=== PATIENT | male | born 1965 | race Caucasian/White ===

== ENCOUNTER 2020-04-25 12:48 | Observation (INO) | payer OTHER, SELFPAY ==
--- NOTE | ~2020-04-25 | CT_ITS ---
EXAMINATION: CT abdomen pelvis w con DATE: 04/25/2020 16:07 INDICATION: Mid abdominal pain. Nausea and vomiting. TECHNIQUE: Computed tomography (CT) of the abdomen and pelvis was performed with 100 mL Omnipaque 350 intravenous contrast. Automated exposure control and iterative reconstruction technique were employe d. The dose-length product was 375.78 mGy-cm. COMPARISON: CT abdomen and pelvis 01/08/2018 FINDINGS: The visualized portions of the lung bases demonstrate mild atelectasis. No pleural effusion . The heart size is normal. No pericardial effusion. There is a small sliding hiatal hernia. The live r demonstrates focal steatosis adjacent to ligamentum teres. The gallbladder, spleen, pancreas, adren al glands, and kidneys are normal. The prostate is mildly enlarged. There are scattered diverticula i n the colon. There is wall thickening of the sigmoid colon. There are no dilated loops of bowel. The appendix is not visualized. There are no pathologically enlarged lymph nodes. There is no free intrap eritoneal fluid. There is moderate lumbar spondylosis. There is mild chronic anterior wedging of T11- L1 vertebral bodies. IMPRESSION: 1. Stable wall thickening of sigmoid colon, likely chronic diverticulitis. 2. Small sliding hiatal hernia. Reviewed, dictated and finalized at location A.
[2020-04-25 13:09] VITALS: PULSE 70; RESP 17; TEMP 36.4; O2SAT 100
[2020-04-25 13:45] LABS: Basophils Absolute Auto 0.1 K/mm3 (0.0-0.1); Basophils Percent Auto 0.5 % (0.2-1.2); Eosinophils Percent Auto 0.1 % (0-4.4); Hematocrit 52.2 % (42.0-52.0); Hemoglobin 18.3 g/dL (14.0-18.0); Immature Granulocyte Absolute 0.06 K/mm3 (0.00-0.031); Immature Granulocyte Percent A 0.5 % (0-0.5); Lymphocytes Absolute Auto 0.85 K/mm3 (0.9-3.2); Lymphocytes Percent Auto 6.4 % (18.3-44.2); Mean Corpuscular HGB Conc 35.1 g/dl (32-36); Mean Corpuscular Hemoglobin 32.3 pg (26-34); Mean Corpuscular Volume 92.2 fl (80-100); Mean Platelet Volume 10.6 fl (7.4-10.4); Monocytes Absolute Auto 0.3 K/mm3 (0.1-0.6); Neutrophils Absolute Auto 12.1 K/mm3 (1.3-6.7); Neutrophils Percent Auto 90.5 % (45.5-73.1); Platelet Count Result 369 k/mm3 (150-375); Red Blood Count 5.66 M/mm3 (4.6-6.20); White Blood Count 13.3 K/mm3 (4.5-10.0)
[2020-04-25 13:59] LABS: Alanine Aminotransferase 16 U/L (4-50); Albumin Level 5.4 g/dL (3.5-5.1); Alkaline Phosphatase 92 U/L (38-126); Aspartate Amino Transferase 16 U/L (17-59); Bilirubin,Total 1.8 mg/dL (0.2-1.3); Blood Urea Nitrogen 21 mg/dL (9-20); Calcium 10.4 mg/dL (8.4-10.2); Carbon Dioxide 19 mmol/L (22-30); Chloride 102 mmol/L (98-107); Estimated CRCL calculation 75 ml/min; Estimated Glomerular Filt Rate > 60; Glucose 186 mg/dL (75-110); Lipase 46 U/L (23-300); Potassium 4.3 mmol/L (3.4-5.0); Sodium 140 mmol/L (137-145)
[2020-04-25 15:37] VITALS: BP 163/96; PULSE 72; RESP 18; O2SAT 99
--- NOTE | 2020-04-25 15:40 | ED.NAVMDI ---
HPI - Nausea/Vomiting/Diarrhea General Chief complaint: Nausea/Vomiting/Diarrhea Stated complaint: abdominal pain Time Seen by Provider: 04/25/20 15:27 Source: patient Mode of arrival: ambulatory Limitations: no limitations History of Present Illness HPI Narrative: Patient is a 54-year-old male who presents for evaluation of nausea, vomiting and abdominal pain. Patient reports a 3-day history of worsening, severe upper abdominal pain. Patient denies any back pain or chest pain. He reports numerous episodes of nonbloody, nonbilious emesis. He denies any lower abdominal pain, no urinary symptoms. He reports intermittent diarrhea, no dark or tarry stool, no blood or mucus present. Patient has a history of flareups such as this in the past, he follows with Dr. Joya, is currently investigating any etiology such as irritable bowel syndrome. Patient denies fever or chills. He reports feeling dehydrated. Related Data Home Medications Medication Instructions Recorded Confirmed sucralfate 1 gram tablet 1 gm PO QID tablet 09/16/19 Allergies Allergy/AdvReac Type Severity Reaction Status Date / Time cephalexin Allergy Unknown Unknown Verified 04/25/20 15:38 BEE POLLENS Allergy Mild Swelling Uncoded 04/25/20 15:38 BEE STINGS Allergy Mild SWELLING Uncoded 04/25/20 15:38 CATS Allergy Mild SNEEZE Uncoded 04/25/20 15:38 MILDEW Allergy Mild SNEEZE Uncoded 04/25/20 15:38 Molds and Smuts Allergy Mild SNEEZE Uncoded 04/25/20 15:38 Review of Systems Review of Systems: Narrative: CONSTITUTIONAL: Denies fever, chills EYES: Denies visual changes, redness, or discharge. ENT: Denies rhinorrhea, congestion, sore throat, or otalgia. CARDIOVASCULAR: Denies chest pain, palpitations, or edema. RESPIRATORY: Denies cough or dyspnea. GASTROINTESTINAL: Reports abdominal pain, nausea and vomiting GENITOURINARY: Denies dysuria or hematuria. SKIN: Denies rash or itching. MUSCULOSKELETAL: Denies back pain, joint pain, or myalgia. NEUROLOGIC: Denies headache PMFSH Past Medical History Medical History (Updated 04/25/20 @ 17:47 by Marylu Johnston MD) Acid reflux Diverticulitis Hyperlipidemia Surgical History Surgical History (Updated 04/25/20 @ 15:43 by Marylu Johnston MD) H/O inguinal hernia repair History of appendectomy Family History Family History (Updated 05/31/17 @ 09:36 by DOCTOR UNKNOWN) Other Diabetes mellitus Social History Social History Smoking status: Never smoker Second hand tobacco smoke exposure: No Alcohol intake: current Exam Narrative: Exam Narrative: GENERAL: Awake, alert, conversant, uncomfortable appearing HEAD: Normocephalic, atraumatic. EYES: PERRLA and EOMI. ENT: Nares clear, no rhinorrhea or epistaxis. Mucous membranes dry. NECK: Supple. CHEST: No respiratory distress, breathing even and non labored HEART: Regular rate, sinus rhythm ABDOMEN:Non distended, tender to palpation in epigastrium, periumbilical area, guarding present, non rigid, no rebound EXTREMITIES: Normal range of motion. No edema. SKIN: Warm, dry, no rash. NEURO:No focal deficits. Alert and oriented x3 Course Vital Signs Vital signs: Vital Signs Temperature 36.4 C 04/25/20 13:09 Pulse Rate 70 04/25/20 13:09 Respiratory Rate 17 04/25/20 13:09 Pulse Oximetry 100 04/25/20 13:09 Temperature 36.4 C 04/25/20 13:09 Pulse Rate 63 04/25/20 17:06 Respiratory Rate 17 04/25/20 17:06 Blood Pressure 160/89 H 04/25/20 17:06 Pulse Oximetry 100 04/25/20 17:06 MDM - Nausea/Vomiting/Diarrhea MDM Narrative Medical decision making narrative: Patient presented for evaluation of abdominal pain. At the time of initial assessment, ABCs are intact and vital signs are stable. Patient is uncomfortable appearing with diffuse abdominal tenderness especially in the periumbilical area. He has some guarding present. No rebound or rigidity. IV access obt
[2020-04-25] MEDS: MORPHINE SULFATE 4 MG/ML INJ IV PUSH ×3 (15:53→22:04)
[2020-04-25] MEDS: FAMOTIDINE 20 MG/2 ML VIAL IV PUSH (15:53)
[2020-04-25] MEDS: ONDANSETRON INJ 4 MG/2 ML VIAL IV PUSH ×2 (15:53→20:22)
[2020-04-25] MEDS: DICYCLOMINE HCL INJ 20 MG/2 ML VIAL IM (15:53)
[2020-04-25] MEDS: SODIUM CHLORIDE 0.9% IV 1,000 ML 999 ML IV CONT ×2 (15:54)
--- NOTE | 2020-04-25 15:55 | PC.NURSE ---
Pt to CT scan via stretcher.
[2020-04-25 17:06] VITALS: BP 160/89; PULSE 63; RESP 17; O2SAT 100
[2020-04-25 17:17] LABS: Add Urine Microscopic? YES; Appearance Urine Clear (Clear); Bilirubin Urine Negative (Negative); Blood Urine Negative (Negative); Color Urine Straw (Yellow); Glucose Urine UA 1+ mg/dL (Negative); Ketones Urine 1+ mg/dL (Negative); Leukocyte Esterase Ur Negative LEU/UL (Negative); Mucus Urine Rare /lpf; Nitrate Urine Negative (Negative); Protein Urine Negative (Negative); RBC Urine 0-2 /hpf (0-2); Squamous Epithelial Cell Urine Rare /hpf (Few); Urobilinogen Urine Negative mg/dL (<2.0); WBC Urine 0-3 /hpf
[2020-04-25 17:19] LABS: Specific Grav Ur 1.059 (1.001-1.035)
[2020-04-25] MEDS: METOCLOPRAMIDE HCL INJ 10 MG/2 ML VIAL IV PUSH (17:25)
[2020-04-25] MEDS: CIPROFLOXACIN 500 MG TAB PO (17:25)
[2020-04-25] MEDS: metroNIDAZOLE 250 MG TABLET 500 MG PO (17:25)
[2020-04-25 18:30] VITALS: BP 158/98; PULSE 69; RESP 17; O2SAT 100
[2020-04-25] MEDS: SODIUM CHLORIDE 0.9% IV 1,000 ML 125 ML IV CONT (18:57)
[2020-04-25 18:59] VITALS: BP 179/91; PULSE 77; RESP 18; TEMP 37.3; O2SAT 100
[2020-04-25 20:03] VITALS: BMI 25.0
--- NOTE | 2020-04-25 20:05 | ADMGEN ---
This patient, Lamberto Wright, was admitted to [facility] Surg Room 311-01. Patient/family oriented to hospital policies and general routines including ID bracelet, bed and alarms, visiting hours, pain management, procedures, bathroom and other care routines, personal items, smoking policy, room service/diet, and visiting hours. Valuables list has been completed. Information on how to activate the Rapid Response Team has been discussed. Patient/Family are encouraged to report perceived risks to care and to ask questions if they do not understand what they are told or what they should do.
[2020-04-25] MEDS: IBUPROFEN IV 400 MG in SODIUM CHLORIDE 0.9% IV 100 ML 200 MG IVPB (20:40)
[2020-04-25 22:00] VITALS: BP 134/69; PULSE 77; RESP 16; TEMP 37.3; O2SAT 100
[2020-04-26] MEDS: MORPHINE SULFATE 4 MG/ML INJ IV PUSH (02:21)
[2020-04-26] MEDS: SODIUM CHLORIDE 0.9% IV 1,000 ML 125 ML IV CONT ×2 (02:27→10:04)
[2020-04-26] MEDS: ONDANSETRON INJ 4 MG/2 ML VIAL IV PUSH (02:41)
[2020-04-26 06:00] VITALS: BP 136/81; PULSE 63; RESP 16; TEMP 36.3; O2SAT 100
[2020-04-26 06:25] LABS: Basophils Percent Auto 0.2 % (0.2-1.2); Eosinophils Absolute Auto 0.1 K/mm3 (0-0.3); Eosinophils Percent Auto 0.6 % (0-4.4); Hemoglobin 14.9 g/dL (14.0-18.0); Immature Granulocyte Absolute 0.05 K/mm3 (0.00-0.031); Immature Granulocyte Percent A 0.4 % (0-0.5); Lymphocytes Absolute Auto 2.29 K/mm3 (0.9-3.2); Lymphocytes Percent Auto 17.2 % (18.3-44.2); Mean Corpuscular HGB Conc 33.9 g/dl (32-36); Mean Corpuscular Hemoglobin 31.9 pg (26-34); Mean Corpuscular Volume 94.2 fl (80-100); Mean Platelet Volume 10.6 fl (7.4-10.4); Monocytes Absolute Auto 1.2 K/mm3 (0.1-0.6); Monocytes Percent Auto 9.3 % (2.6-8.5); Neutrophils Absolute Auto 9.6 K/mm3 (1.3-6.7); Neutrophils Percent Auto 72.3 % (45.5-73.1); Platelet Count Result 270 k/mm3 (150-375); Red Blood Count 4.67 M/mm3 (4.6-6.20); Red Cell Distribution Width 13.1 % (11.5-14.5); White Blood Count 13.3 K/mm3 (4.5-10.0)
[2020-04-26 06:50] LABS: Blood Urea Nitrogen 16 mg/dL (9-20); Calcium 8.6 mg/dL (8.4-10.2); Carbon Dioxide 26 mmol/L (22-30); Chloride 105 mmol/L (98-107); Estimated CRCL calculation 93 ml/min; Estimated Glomerular Filt Rate > 60; Glucose 98 mg/dL (75-110); Potassium 3.9 mmol/L (3.4-5.0); Sodium 139 mmol/L (137-145)
--- NOTE | 2020-04-26 09:56 | PM.IMHP ---
H&P: HPI History of Present Illness Chief complaint: Chronic diverticulitis, intractable nausea Narrative: Date of visit 04/26 930. Lamberto Wright is a 54 year old male with history of recurrent epigastric pain nausea and vomiting. He also has a history diverticulitis. Has been following up with his follow up clerk Dr. Joya and stated the dicyclomine did not help his symptoms. He cannot pinpoint any precipitating factor and has been rather heavy alcohol consumer but stated he had not drank any alcohol for about 5 days prior to this episode. He woke up on the through the night with crampy abdominal pain in epigastric area which worsened with nausea and vomiting and persistent pain so he came to the emergency room for evaluation. He was dehydrated and CT scan revealed thickening of the sigmoid colon which is chronic in compatible with chronic diverticulitis. Patient states the pain is not like his diverticular pain. He does relate that sometimes the symptoms are relieved with a warm shower and admits to smoking marijuana for years but a little elusive on how much or how frequently. He has had no melena hematochezia hematemesis or weight loss. Last colonoscope in 2016 showed only diverticular disease. EGD in the past has been normal. Review of Systems Review of Systems: Narrative: Constitutional weight stable appetite good and no fever chills Eye no double vision or scotoma Mouth no pharyngitis laryngitis Pulmonary no shortness breath wheezing or cough CV no chest pain palpitation GI as per present illness frequently does have loose stools no dysuria no hematuria Muscle skeletal no particular joint discomfort Integument no skin breakdown rashes Neuropsych no seizures no syncope PMFSH Past Medical History Medical History (Updated 04/26/20 @ 10:08 by Todd Brower MD) Acid reflux Diverticulitis Hyperlipidemia Surgical History Surgical History (Updated 04/25/20 @ 15:43 by Marylu Johnston MD) H/O inguinal hernia repair History of appendectomy Family History Family History (Updated 04/26/20 @ 10:05 by Todd Brower MD) Father Diabetes mellitus Mother Diverticular disease Social History Social History (Updated 04/26/20 @ 10:07 by Todd Brower MD) Social History: 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 Smoking status: Never smoker Second hand tobacco smoke exposure: No Alcohol intake: current Alcohol use details: Varies may drink as many as 10-12 beers a day, but prior to this admission had not drank for some 5 days Substance use: current Substance use type: marijuana Living arrangements: with family Gender identity (if verbalized by the patient): Male Sexual Orientation (if Verbalized by the Patient): Straight or Heterosexual Spiritual care concerns: No Meds Home Medications and Allergies Home Medications Medication Instructions Recorded Confirmed Type sucralfate 1 gram tablet 1 gm PO QID tablet 09/16/19 04/25/20 History atorvastatin 40 mg tablet 40 mg PO .QHS #90 tablet 12/11/19 04/25/20 Rx pantoprazole 40 mg tablet,delayed 40 mg PO QAM #90 tablet 03/12/20 04/25/20 Rx release Allergies Allergy/AdvReac Type Severity Reaction Status Date / Time cephalexin Allergy Unknown Unknown Verified 04/25/20 15:38 BEE POLLENS Allergy Mild Swelling Uncoded 04/25/20 15:38 BEE STINGS Allergy Mild SWELLING Uncoded 04/25/20 15:38 CATS Allergy Mild SNEEZE Uncoded 04/25/20 15:38 MILDEW Allergy Mild SNEEZE Uncoded 04/25/20 15:38 Molds and Smuts Allergy Mild SNEEZE Uncoded 04/25/20 15:38 Vital Signs Vital Signs - 24 hr 04/25/20 13:09 04/25/20 15:37 04/25/20 17:06 Temperature 36.4 C Pulse Rate 70 72 63 Respiratory Rate 17 18 17 Blood Pressure 163/96 H 160/89 H Pulse Oximetry 100 99 100 04/25/20 18:30 04/25/20 18:59 04/25/20 22:00 Temperature 37.3 C 37.3 C Pulse Rate 69 77 77 Respiratory Rate 17 18 16 Bl
[2020-04-26] MEDS: SUCRALFATE 1 GM TABLET PO (09:59)
[2020-04-26] MEDS: PANTOPRAZOLE 40 MG TABLET PO (09:59)
[2020-04-26] MEDS: ENOXAPARIN 40 MG/0.4 ML SYRINGE SUB-Q (10:00)
--- NOTE | 2020-04-26 10:18 | PM.CNGS ---
Assessment and Plan Assessment and plan (1) Diverticular disease: Code(s): K57.90 - Diverticulosis of intestine, part unspecified, without perforation or abscess without bleeding Status: Acute Assessment and Plan: Review of old records and CT scan reports do suggest he is had multiple episodes of diverticulitis in the past. He does have a very thickened sigmoid colon wall and numerous diverticuli. He does tend to have chronic frequent bowel movements. He carries a diagnosis of irritable bowel syndrome. Even though his pain is frequently in the hypogastrium, his numerous CT scans do not show pancreatitis and do show diverticulitis. I discussed that laparoscopic sigmoidectomy can be curative in the cases of diverticulitis. I think his diagnosis is difficult as he does use alcohol, marijuana, and has a diagnosis of irritable bowel syndrome. He has had an EGD at a surgery center in 2017. I do not have that result. I have recommended that he be discharged today and see Dr. Joya. I will see him back in approximately a month. I discussed his case with hospitalist Dr. Brower. (2) Abdominal pain: Code(s): R10.9 - Unspecified abdominal pain Status: Acute Assessment and Plan: Currently resolved. Pain again in the hypogastrium and associated with nausea and vomiting. He has presented to the emergency room with these complaints at least 5 or 6 times since 2013. Please see the discussion above. Differential includes irritable bowel syndrome, chronic pancreatitis, and recurrent diverticulitis with somewhat unusual presentation. History of Present Illness Consult details Consult date: 04/26/20 Reason for consult: abdominal pain Narrative: Patient is a 54-year-old man who presented to the emergency room yesterday afternoon with a 3 day history of hypogastric abdominal pain associated with nausea and vomiting. He had numerous episodes of non bilious emesis. [place] [id number]. His examination showed tenderness to palpation in the hypogastric area with some guarding. He was afebrile but had some tachycardia and a slightly elevated blood pressure. He has a history of irritable bowel syndrome and sees Dr. Joya for GI consultation. The patient also has a history of diverticulitis and has had a severe episode but it was probably 6 years ago. He was told he had a perforation and he was hospitalized for this. He received numerous medications in the emergency room. His CT scan was negative other than evidence of chronic diverticulitis as evidenced by sigmoid colon wall thickening. Despite his prolonged difficulties in the emergency room, this morning he says he feels fine. He has no pain at all. He is no longer nauseated. Review of some previous study show he was in the emergency room in January of 2018 with lower abdominal pain nausea and vomiting and had a similar presentation with thickening of the wall of the sigmoid colon and some germaine colonic stranding suggestive of chronic and acute diverticulitis. He has had colonoscopy but can't recall the last time. There is a record in [facility] of a colonoscopy in October. This showed inflammation or colitis of the sigmoid colon with diverticulosis. I reviewed all of his previous admissions in [facility]. Since 2013 he has been admitted with [address] scan diagnosed diverticulitis although his pain has always been in the hypogastrium. 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 One was in 2014 another was in January of 2018. He is seen now in consultation. As mentioned he feels 100% better and back to normal. Review of Systems Review of Systems: All systems reviewed & are unremarkable except as noted in HPI and below Cardiovascular: Cardiovascular: Denies chest pain and Denies dyspnea Respiratory: Respiratory: Denies cough and Denies dyspnea Gastrointestinal: G
== END 2020-04-26 11:45 | disposition home or self-care (01) ==
LOC: ANHED 17:49 → ANH3MEDSUR 18:28
PROVIDERS: Admitting Provider Internal Medicine; Emergency Provider Emergency Medicine; PCP Family Medicine; Visit Provider Internal Medicine
DX: K57.90 Diverticulosis of intestine, part unspecified, without perforation or abscess without bleeding (principal); R10.9 Unspecified abdominal pain; E86.0 Dehydration; R11.2 Nausea with vomiting, unspecified; K21.9 Gastro-esophageal reflux disease without esophagitis; E78.5 Hyperlipidemia, unspecified; K44.9 Diaphragmatic hernia without obstruction or gangrene; F12.90 Cannabis use, unspecified, uncomplicated
CPT/HCPCS: 36415; 74177; 80048; 80053; 81001; 83690; 85025; 96361; 96365; 96366; 96367; 96372; 96375; 96376; 99285; A9270; G0378; J0500; J1170; J1650; J1741; J2270; J2405; J2543; J2765; J7030; Q9967

== ENCOUNTER 2020-06-03 11:33 | Observation (INO) | payer OTHER, SELFPAY ==
--- NOTE | ~2020-06-03 | CT_ITS ---
EXAMINATION: CT abdomen pelvis w con EXAM DATE: 06/03/2020 13:31 INDICATION: Diffuse abdominal pain. Post colonoscopy. TECHNIQUE: Spiral CT of the abdomen and pelvis was performed following intravenous injection of 100 m L Omnipaque 350. Axial, coronal and sagittal images were reviewed. The dose-length product (DLP) fo r this examination was 413.13 mGy-cm. The exposure was tailored according to patient size (auto mA e xposure control), and iterative reconstruction (ASIR) was used as additional dose reduction technique . 04/25/2018 FINDINGS: There is no free intraperitoneal gas, no evidence of perforation. There is a segment of sig moid colon about 10 cm in length which appears to have moderate wall thickening, with severe gaseous distention of the colon proximal to this, likely distended from the colonoscopy. Patient's discomfort could be from the distended colon. Please correlate with colonoscopy results for possibility of canc er causing this region of sigmoid wall thickening. There is mild sigmoid diverticulosis and edema fro m diverticulitis is another possibility. The liver, spleen, adrenal glands and pancreas are unremarkable. Gallbladder is unremarkable. No bi liary obstruction. Portal and splenic veins are patent. Kidneys enhance symmetrically. There is no hydronephrosis. The prostate is unremarkable. The bladder is unremarkable. There is no retroperi toneal or pelvic lymphadenopathy. There is mild scattered arteriosclerotic disease. The appendix is not positively visualized. There is no pericecal inflammatory change to suggest appe ndicitis. The stomach and small bowel are unremarkable. The heart is normal in size. There are no pericardial or pleural effusions. The lung bases are unremarkable. There are no osteoblastic or osteolytic lesions identified. IMPRESSION: Severely distended colon proximal to 10 cm segment of collapsed sigmoid colon with wall t hickening, could be from cancer or reactive edema. Mild sigmoid diverticulosis without adjacent infla mmation. Please correlate with colonoscopy results. Reviewed, dictated and finalized at location A. IMPRESSION: Severely distended colon proximal to 10 cm segment of collapsed sig moid colon with wall thickening, could be from cancer or reactive edema. Mild s igmoid diverticulosis without adjacent inflammation. Please correlate with colo noscopy results.
[2020-06-03 11:46] VITALS: BP 162/66; PULSE 77; RESP 17; RESP 18; TEMP 37.3; O2SAT 100
[2020-06-03] MEDS: ONDANSETRON INJ 4 MG/2 ML VIAL IV PUSH ×2 (12:10→12:59)
--- NOTE | 2020-06-03 12:32 | PC.NURSE ---
Addendum entered by Irwin Bailey RN 06/03/20 12:39: DEBBY VINCENT Original Note: DEBBY PALOMO AT BEDSIDE.
--- NOTE | 2020-06-03 12:36 | ED.ABDPAIN ---
HPI - Abdominal Pain General Chief Complaint: Abdominal Pain Stated Complaint: ABD PAIN Time Seen by Provider: 06/03/20 12:02 Source: patient and family History of Present Illness HPI narrative: 54-year-old male presents emergency department for diffuse abdominal pain that started this morning. Patient states he had a colonoscopy done this morning, which showed polyps and diverticulitis. He has not taken anything for the pain this morning. Nothing makes the pain worse or better. Patient does have history of diverticulitis in the past. Related Data Allergies Allergy/AdvReac Type Severity Reaction Status Date / Time BEE POLLENS Allergy Mild Swelling Uncoded 06/03/20 14:33 BEE STINGS Allergy Mild SWELLING Uncoded 06/03/20 14:33 CATS Allergy Mild SNEEZE Uncoded 06/03/20 14:33 MILDEW Allergy Mild SNEEZE Uncoded 06/03/20 14:33 Molds and Smuts Allergy Mild SNEEZE Uncoded 06/03/20 14:33 Review of Systems Review of Systems: Narrative: CONSTITUTIONAL: Denies fever, chills, or sweats. EYES: Denies visual changes, redness, or discharge. ENT: Denies rhinorrhea, congestion, sore throat, or otalgia. CARDIOVASCULAR: Denies chest pain, palpitations, or edema. RESPIRATORY: Denies cough or dyspnea. GASTROINTESTINAL: Reports abdominal pain, nausea, and vomiting GENITOURINARY: Denies dysuria or hematuria. SKIN: Denies rash or itching. MUSCULOSKELETAL: Denies back pain, joint pain, or myalgia. NEUROLOGIC: Denies headache, numbness, dizziness, or weakness. PSYCHIATRIC: Denies anxiety or depression. 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 EYES: PERRLA and EOMI. ENT: Nares clear, no rhinorrhea or epistaxis. Mucous membranes moist. NECK: Supple. CHEST: Clear to auscultation. No respiratory distress. HEART: Regular rate and rhythm. No murmur heard. Normal peripheral pulses. ABDOMEN: Diffuse abdominal TTP also, with minimal guarding. EXTREMITIES: Normal range of motion. No edema. SKIN: Warm, dry, no rash. NEURO: No focal deficits. Alert and oriented x3. PSYCH: Normal mood and affect. Course Vital Signs Vital signs: Vital Signs Temperature 37.3 C 06/03/20 11:46 Pulse Rate 77 06/03/20 11:46 Respiratory Rate 17 06/03/20 11:46 Blood Pressure 162/66 H 06/03/20 11:46 Pulse Oximetry 100 06/03/20 11:46 Temperature 37.2 C 06/03/20 20:00 Pulse Rate 74 06/03/20 20:00 Respiratory Rate 20 06/03/20 20:00 Blood Pressure 114/62 06/03/20 20:00 Pulse Oximetry 99 06/03/20 20:00 MDM - Abdominal Pain MDM Narrative Medical decision making narrative: 1310 - Discussed case with Dr. Jm Aburto, accepts admission. Medical Records Attestation: I reviewed the patient's medical records. Lab Data Attestation: I reviewed the patient's lab results. Result diagrams: 06/03/20 12:45 06/03/20 12:45 Labs: Lab Results 06/03/20 06/03/20 Range/Units 12:45 12:4
--- NOTE | 2020-06-03 12:39 | PC.NURSE ---
PT UNABLE TO PROVIDE URINE SPECIMEN AT THIS TIME, REFUSING CATH, STATES HE WILL ATTEMPT SOON.
[2020-06-03] MEDS: KETOROLAC 30 MG/ML VIAL (*BKC) IV PUSH (12:51)
[2020-06-03 12:52] LABS: Basophils Absolute Auto 0.1 K/mm3 (0.0-0.1); Basophils Percent Auto 0.4 % (0.2-1.2); Eosinophils Percent Auto 0.3 % (0-4.4); Hematocrit 45.4 % (42.0-52.0); Immature Granulocyte Absolute 0.06 K/mm3 (0.00-0.031); Immature Granulocyte Percent A 0.4 % (0-0.5); Lymphocytes Absolute Auto 1.17 K/mm3 (0.9-3.2); Lymphocytes Percent Auto 8.4 % (18.3-44.2); Mean Corpuscular HGB Conc 35.2 g/dl (32-36); Mean Corpuscular Hemoglobin 31.9 pg (26-34); Mean Corpuscular Volume 90.4 fl (80-100); Mean Platelet Volume 10.4 fl (7.4-10.4); Monocytes Absolute Auto 0.5 K/mm3 (0.1-0.6); Monocytes Percent Auto 3.7 % (2.6-8.5); Neutrophils Absolute Auto 12.2 K/mm3 (1.3-6.7); Neutrophils Percent Auto 86.8 % (45.5-73.1); Platelet Count Result 290 k/mm3 (150-375); Red Blood Count 5.02 M/mm3 (4.6-6.20); Red Cell Distribution Width 12.7 % (11.5-14.5)
[2020-06-03 12:56] VITALS: BP 154/75; PULSE 68; RESP 16; O2SAT 100
--- NOTE | 2020-06-03 13:01 | PC.NURSE ---
PT REMINDED OF NEED FOR UA, REFUSING CATH.
--- NOTE | 2020-06-03 13:02 | PC.NURSE ---
DR. CORRIGAN AT BEDSIDE AT THIS TIME FOR PT ASSESSMENT.
--- NOTE | 2020-06-03 13:02 | PC.NURSE ---
PT STILL COMPLAINING OF 10/10 GENERALIZED ABD PAIN. STATES NONE OF THE MEDICATIONS ARE HELPING, STILL NAUSEATED, BELCHING WHILE NURSE IN ROOM, STILL UNABLE TO PASS GAS.
[2020-06-03 13:05] LABS: Alanine Aminotransferase 12 U/L (4-50); Albumin Level 4.5 g/dL (3.5-5.1); Alkaline Phosphatase 75 U/L (38-126); Anion Gap 9 mmol/L (8-16); Aspartate Amino Transferase 13 U/L (17-59); Bilirubin,Total 1.3 mg/dL (0.2-1.3); Blood Urea Nitrogen 10 mg/dL (9-20); Carbon Dioxide 23 mmol/L (22-30); Chloride 103 mmol/L (98-107); Estimated CRCL calculation 121 ml/min; Estimated Glomerular Filt Rate > 60; Glucose 133 mg/dL (75-110); Lipase 99 U/L (23-300); Potassium 3.8 mmol/L (3.4-5.0); Sodium 135 mmol/L (137-145)
--- NOTE | 2020-06-03 13:07 | PC.NURSE ---
SPOKE WITH DR CORRIGAN AT THIS TIME, VERBAL ORDER GIVEN FOR LR STAT TO RUN AT 125/HR MAINTENANCE, AND 4MG MORPHINE IVP STAT.
[2020-06-03] MEDS: LACTATED RINGERS 1,000 ML 125 ML IV CONT (13:16)
[2020-06-03] MEDS: MORPHINE SULFATE 2 MG/ML INJ IV PUSH ×2 (13:16→20:24)
--- NOTE | 2020-06-03 13:20 | PC.NURSE ---
PT TO CT AT THIS TIME IN STRETCHER.
--- NOTE | 2020-06-03 13:28 | PC.NURSE ---
SPOKE WITH ERP ABOUT DUPLICATE ORDERS, ERP WANTS TO CANCEL NS BOLUS DUE TO EMS BOLUS GIVEN ENCODING CLERK.
[2020-06-03 13:39] VITALS: BP 168/77; PULSE 82; RESP 18; O2SAT 100
[2020-06-03 14:03] LABS: Add Urine Microscopic? YES; Appearance Urine Clear (Clear); Bilirubin Urine Negative (Negative); Blood Urine Negative (Negative); Color Urine Yellow (Yellow); Glucose Urine UA Negative (Negative); Ketones Urine 2+ mg/dL (Negative); Leukocyte Esterase Ur Negative LEU/UL (Negative); Mucus Urine Rare /lpf; Nitrate Urine Negative (Negative); Protein Urine Negative (Negative); RBC Urine 0-2 /hpf (0-2); Specific Grav Ur 1.034 (1.001-1.035); Urobilinogen Urine Negative mg/dL (<2.0); WBC Urine 0-3 /hpf
[2020-06-03 14:14] VITALS: BP 158/75; PULSE 70; RESP 16; O2SAT 100
--- NOTE | 2020-06-03 14:26 | ADMGEN ---
This patient, Lamberto Wright, was admitted to Medical Room 253-01. Patient/family oriented to hospital policies and general routines including ID bracelet, bed and alarms, visiting hours, pain management, procedures, bathroom and other care routines, personal items, smoking policy, room service/diet, and visiting hours. Valuables list has been completed. Information on how to activate the Rapid Response Team has been discussed. Patient/Family are encouraged to report perceived risks to care and to ask questions if they do not understand what they are told or what they should do.
[2020-06-03 14:35] VITALS: BP 154/89; PULSE 71; RESP 20; TEMP 36.5; O2SAT 100; BMI 23.6
--- NOTE | 2020-06-03 14:52 | PC.NURSE ---
Patient received from ED rating pain to abdomen 7/10 and nauseated requesting more medication. Patient is not able to yet receive zofran or morphine, as he has recently received in ED. Page to Dr. Aburto to obtain new orders. Jhonny from Dr. Vences office called back and stated Dr. Aburto is aware and will put in new orders after he sees the patient.
[2020-06-03] MEDS: MORPHINE SULFATE 4 MG/ML INJ IV PUSH (15:19)
--- NOTE | 2020-06-03 16:21 | PM.IMHP ---
H&P: HPI History of Present Illness Date/Time: 06/03/20 16:21 Chief complaint: DIVERTICULITIS Narrative: Lamberto Wright is a 54 year old male Whom I saw in April for acute diverticulitis. He has had multiple bouts of diverticulitis over the course of the last several years. Please see my consultation from April. Patient was discharged in April and saw Dr. Richard. Dr. Joya knows the patient well also. The [facility] I spoke with after his procedure. A pediatric colonoscope had to be used as he has a narrowed colon from diverticulitis. At the colonoscopy, there was mucoid discharge, patchy erythema, colonic spasm all consistent with chronic diverticulitis. Following the procedure, the patient experienced severe lower and hypogastric abdominal pain. He was transferred to the emergency room in [facility]. I saw him in in the emergency room. He is admitted now for recurrent acute diverticulitis and pain after his colonoscopy. CT scan done in the emergency room showed quite a dilated colon, thickened sigmoid and multiple diverticuli consistent with diverticulitis. I also spoke with Dr. Joya about the colonscopy after seeing the patient and reviewing the CT scan. He felt that although the sigmoid was narrowed, there was not near enough narrowing to cause complete colonic obstruction. The colonic distention seen on the CT should likely resolve as air passes following the colonoscopy. He is admitted now with recurrent diverticulitis. Review of Systems Review of Systems: All systems reviewed & are unremarkable except as noted in HPI and below Constitutional: Constitutional: Denies headache(s) Cardiovascular: Cardiovascular: Denies chest pain and Denies dyspnea Respiratory: Respiratory: Denies cough and Denies dyspnea Gastrointestinal: Gastrointestinal: Reports as per HPI, Reports abdominal pain, Reports belching, Denies nausea and Denies vomiting Neurologic: Denies confusion and Denies headache(s) [facility] Past Medical History Medical History Acid reflux Diverticulitis Hyperlipidemia Surgical History Surgical History H/O inguinal hernia repair History of appendectomy Family History Family History Father Hypertension Mother Diverticular disease Diabetes mellitus Social History Social History Social History: 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 Smoking status: Never smoker Second hand tobacco smoke exposure: No Alcohol intake: current Drinks per week: 12 Substance use: current Substance use type: marijuana Other substance usage details: Patient reports occasional marijuana use-last used last weekend Last use: 05/30/2020 Gender identity (if verbalized by the patient): Male Spiritual care concerns: No Meds Home Medications and Allergies Home Medications Medication Instructions Recorded Confirmed Type atorvastatin 40 mg tablet 40 mg PO .QHS #90 tablet 12/11/19 06/03/20 Rx pantoprazole 40 mg tablet,delayed 40 mg PO QAM #90 tablet 03/12/20 06/03/20 Rx release Allergies Allergy/AdvReac Type Severity Reaction Status Date / Time BEE POLLENS Allergy Mild Swelling Uncoded 06/03/20 14:33 BEE STINGS Allergy Mild SWELLING Uncoded 06/03/20 14:33 CATS Allergy Mild SNEEZE Uncoded 06/03/20 14:33 MILDEW Allergy Mild SNEEZE Uncoded 06/03/20 14:33 Molds and Smuts Allergy Mild SNEEZE Uncoded 06/03/20 14:33 Vital Signs Vital Signs - 24 hr 06/03/20 11:46 06/03/20 12:56 06/03/20 13:39 Temperature 37.3 C Pulse Rate 77 68 82 Respiratory Rate 18 16 18 Blood Pressure 162/66 H 154/75 H 168/77 H Pulse Oximetry 100 100 100 06/03/20 14:14 06/03/20 14:35 Tempera
[2020-06-03] MEDS: IBUPROFEN IV 800 MG/200 ML 800 MG/200 ML BAG 400 MG IVPB ×2 (17:43→23:54)
[2020-06-03 20:00] VITALS: BP 114/62; PULSE 74; RESP 20; TEMP 37.2; O2SAT 99
[2020-06-03] MEDS: PANTOPRAZOLE SODIUM IV 40 MG VIAL IV PUSH (20:21)
[2020-06-03] MEDS: FAMOTIDINE 20 MG/2 ML VIAL IV PUSH (20:21)
[2020-06-04 04:00] VITALS: BP 139/74; PULSE 71; RESP 18; TEMP 37; O2SAT 100
[2020-06-04] MEDS: IBUPROFEN IV 800 MG/200 ML 800 MG/200 ML BAG 400 MG IVPB ×2 (05:06→11:36)
[2020-06-04 06:01] LABS: Basophils Absolute Auto 0.1 K/mm3 (0.0-0.1); Basophils Percent Auto 0.6 % (0.2-1.2); Eosinophils Absolute Auto 0.1 K/mm3 (0-0.3); Eosinophils Percent Auto 1.1 % (0-4.4); Hemoglobin 14.7 g/dL (14.0-18.0); Immature Granulocyte Absolute 0.04 K/mm3 (0.00-0.031); Immature Granulocyte Percent A 0.4 % (0-0.5); Lymphocytes Absolute Auto 1.82 K/mm3 (0.9-3.2); Lymphocytes Percent Auto 17.1 % (18.3-44.2); Mean Corpuscular HGB Conc 34.2 g/dl (32-36); Mean Corpuscular Hemoglobin 31.3 pg (26-34); Mean Corpuscular Volume 91.7 fl (80-100); Mean Platelet Volume 10.7 fl (7.4-10.4); Monocytes Absolute Auto 0.6 K/mm3 (0.1-0.6); Monocytes Percent Auto 5.8 % (2.6-8.5); Platelet Count Result 265 k/mm3 (150-375); Red Blood Count 4.69 M/mm3 (4.6-6.20); Red Cell Distribution Width 12.7 % (11.5-14.5); White Blood Count 10.6 K/mm3 (4.5-10.0)
[2020-06-04 06:18] LABS: Anion Gap 8 mmol/L (8-16); Blood Urea Nitrogen 9 mg/dL (9-20); Calcium 8.5 mg/dL (8.4-10.2); Carbon Dioxide 24 mmol/L (22-30); Chloride 102 mmol/L (98-107); Estimated CRCL calculation 83 ml/min; Estimated Glomerular Filt Rate > 60; Glucose 89 mg/dL (75-110); Potassium 3.7 mmol/L (3.4-5.0); Sodium 134 mmol/L (137-145)
[2020-06-04] MEDS: ENOXAPARIN 40 MG/0.4 ML SYRINGE SUB-Q (08:04)
[2020-06-04] MEDS: PANTOPRAZOLE SODIUM IV 40 MG VIAL IV PUSH (08:04)
[2020-06-04] MEDS: FAMOTIDINE 20 MG/2 ML VIAL IV PUSH (08:04)
--- NOTE | 2020-06-04 08:19 | PM.PNGS ---
Progress Note: A&P Assessment and Plan (1) Diverticulitis: Code(s): K57.92 - Diverticulitis of intestine, part unspecified, without perforation or abscess without bleeding Status: Acute Assessment and Plan: Doing much better today. Probably a lot of his pain was retained gas after his colonoscopy. Will continue to treat for acute diverticulitis though as these findings were noted at colonoscopy. Will start on full liquids and advance to low residue diet today. Dietitian to see to discuss discharge on low fiber diet. Will continue IV Zosyn today. Changed to p.o. meds. Possibly home tomorrow if continues to improve. (2) Acid reflux: Code(s): K21.9 - Gastro-esophageal reflux disease without esophagitis Status: Chronic Assessment and Plan: Change to p.o. Protonix today. Subjective Subjective Date/Time Seen: 06/04/20 08:19 Patient reports: feels better, pain is less and afebrile Interval history: Feels much better this morning. Pain is essentially gone. Review of Systems Review of Systems: All systems reviewed & are unremarkable except as noted in HPI and below Constitutional: Constitutional: Denies headache(s) Cardiovascular: Cardiovascular: Denies chest pain and Denies dyspnea Respiratory: Respiratory: Denies cough and Denies dyspnea Gastrointestinal: Gastrointestinal: Reports as per HPI Neurologic: Denies confusion and Denies headache(s) Exam Const: General: comfortable and no acute distress; No confusion Orientation/consciousness: patient oriented x3 and No confusion GI: Inspection: non-distended and no obesity GI Palp: Yes Soft to palpation, No Tenderness to palpation present (GI), No Guarding due to palpation present (GI), No Hernia present, No Palpable mass present and No Rebound tenderness present Auscultation: Hypoactive bowel sounds present Neuro: General: patient oriented x3, no focal motor deficits and No confusion Extrem: General: no calf tenderness and no edema Psych: Affect: normal affect Insight: Good insight present (Psych) Judgement: Good judgement present (Psych) Objective Data Vital Signs Vital Signs: Vital Signs - 24 hr 06/03/20 11:46 06/03/20 12:56 06/03/20 13:39 Temperature 37.3 C Pulse Rate 77 68 82 Respiratory Rate 18 16 18 Blood Pressure 162/66 H 154/75 H 168/77 H Pulse Oximetry 100 100 100 06/03/20 14:14 06/03/20 14:35 06/03/20 20:00 Temperature 36.5 C 37.2 C Pulse Rate 70 71 74 Respiratory Rate 16 20 20 Blood Pressure 158/75 H 154/89 H 114/62 Pulse Oximetry 100 100 99 06/04/20 04:00 Temperature 37.0 C Pulse Rate 71 Respiratory Rate 18 Blood Pressure 139/74 Pulse Oximetry 100 Intake/Output Intake/Output: Intake & Output 06/01/20 06/02/20 06/03/20 06/04/20 23:59 23:59 23:59 23:59 Intake Total 1300 450 Output Total 500 250 Balance 800 200 Meds/Results Medications: Active Medications Generic Name Dose Route Start Last Admin Trade Name Freq PRN Reason Stop Dose Admin Acetaminophen 500 mg 06/03/20 14:55 Tylenol Tablet PO Q6H PRN Mild Pain (1-3) or Fever Enoxaparin Sodium 40 mg 06/04/20 09:00 06/04/20 08:04 Lovenox SUB-Q 40 mg DAILY ENEDINA Administration Famotidine 20 mg 06/03/20 21:00 06/04/20 08:04 Pepcid Iv IV PUSH 20 mg Q12HR ENEDINA Administration Ibuprofen 800 mg in 200 mls @ 400 mls/hr 06/03/20 18:00 06/04/20 05:36 Caldolor 800 Mg/200 Ml IVPB Infused Q6H ENEDINA Infusion Piperacillin/Tazobactam/Dextrose 3.375 gm in 50 mls @ 100 mls/hr 06/03/20 15:00 06/04/20 08:05 Zosyn 3.375 Gm/D5w 50ml Pm IVPB 100 mls/hr Q6H ENEDINA Administration Morphine Sulfate 2 mg 06/03/20 14:55 06/03/20 20:24 Morphine Sulfate Inj IV PUSH 2 mg Q2H PRN Administration Pain Rated 4-6 Morphine Sulfate 4 mg 06/03/20 14:55 06/03/20 15:19 Morphine Sulfate Inj IV PUSH 4 mg Q2H PRN Administration Pain Rated 7-10 Naloxone HCl 0.1 mg
[2020-06-04] MEDS: LACTATED RINGERS 1,000 ML 100 ML IV CONT (09:19)
[2020-06-04 10:21] VITALS: BMI 23.6
--- NOTE | 2020-06-04 11:49 | PCNSR ---
On 06/04/20, the student, Oscar Penaloza, provided care and completed [facility] on this patient. I have reviewed the student's documentation and agree with the findings.
--- NOTE | 2020-06-04 13:23 | PCNSR ---
On 06/04/20, the student, [Oscar Penaloza ], provided care and completed [facility] documentation on this patient. I have reviewed the student's documentation and agree with the findings.
[2020-06-04 13:33] VITALS: BP 133/63; PULSE 65; RESP 16; TEMP 36.8; O2SAT 100
[2020-06-04] MEDS: PANTOPRAZOLE 40 MG TABLET PO (19:58)
[2020-06-04 22:00] VITALS: BP 135/70; PULSE 66; RESP 20; TEMP 36.3; O2SAT 98
[2020-06-05 05:53] LABS: Hematocrit 42.2 % (42.0-52.0); Hemoglobin 14.3 g/dL (14.0-18.0); Mean Corpuscular HGB Conc 33.9 g/dl (32-36); Mean Corpuscular Hemoglobin 31.3 pg (26-34); Mean Corpuscular Volume 92.3 fl (80-100); Mean Platelet Volume 10.5 fl (7.4-10.4); Platelet Count Result 282 k/mm3 (150-375); Red Blood Count 4.57 M/mm3 (4.6-6.20); Red Cell Distribution Width 12.5 % (11.5-14.5); White Blood Count 8.1 K/mm3 (4.5-10.0)
[2020-06-05 06:00] VITALS: BP 132/73; PULSE 61; RESP 20; TEMP 36.1; O2SAT 99
[2020-06-05 06:11] LABS: Anion Gap 5 mmol/L (8-16); Blood Urea Nitrogen 13 mg/dL (9-20); Calcium 8.8 mg/dL (8.4-10.2); Carbon Dioxide 32 mmol/L (22-30); Chloride 100 mmol/L (98-107); Estimated CRCL calculation 75 ml/min; Estimated Glomerular Filt Rate > 60; Glucose 101 mg/dL (75-110); Sodium 137 mmol/L (137-145)
--- NOTE | 2020-06-05 07:41 | PM.DS ---
DS: Admitting Diagnosis Admitting Diagnosis Admitting Diagnosis: DIVERTICULITIS DS: Discharge Diagnosis Discharge Diagnosis (1) Diverticulitis: Code(s): K57.92 - Diverticulitis of intestine, part unspecified, without perforation or abscess without bleeding Status: Acute (2) Acid reflux: Code(s): K21.9 - Gastro-esophageal reflux disease without esophagitis Status: Chronic DS: Summary Time Spent with Patient Time attestation: Total time spent providing and/or coordinating discharge services: Patient is a 54-year-old man who is known to have had multiple previous episodes of diverticulitis over the last 6-7 years. I had seen him in April and had recommended hand access laparoscopic sigmoidectomy. He had not had a colonoscopy in some time. On the day of admission, saw him and performed colonoscopy with a pediatric colonoscope. The patient is known to have significant sigmoid narrowing from his chronic diverticular disease. At the colonoscopy he had patchy erythema, mucoid deposits, and intermittent sigmoid spasm all consistent with low-grade chronic diverticulitis. Following the procedure he had great deal of pain and came to the emergency room. He had a flare up of diverticulitis as well as retained gas due to his narrowed sigmoid. He was admitted and started on analgesics as well as IV Zosyn. He rapidly defervesced and felt much better the following morning. He was started on liquids and a low residue diet. He tolerated this well and was able to be discharged on hospital day 2. 06/05/2020 in good condition. He will continue on a low residue diet and see me in the office in 2 weeks. Plans are to proceed in approximately 30 days with laparoscopic sigmoidectomy. Exam Const: General: comfortable and no acute distress; No confusion Orientation/consciousness: patient oriented x3 and No confusion GI: Inspection: normal to inspection, non-distended and no scars GI Palp: Yes Soft to palpation, No Tenderness to palpation present (GI), No Guarding due to palpation present (GI) and No Rebound tenderness present Auscultation: normal bowel sounds Neuro: General: patient oriented x3, no focal motor deficits and No confusion Extrem: General: no calf tenderness and no edema Psych: Affect: normal affect Insight: Good insight present (Psych) Judgement: Good judgement present (Psych) DS: Data Data Completed and Pending Labs on day of discharge: Labs from last 24 hours 06/05/20 06/05/20 05:32 05:32 WBC 8.1 RBC 4.57 L Hgb 14.3 Hct 42.2 MCV 92.3 MCH 31.3 MCHC 33.9 RDW 12.5 Plt Count 282 MPV 10.5 H Sodium 137 Potassium 4.0 Chloride 100 Carbon Dioxide 32 H Anion Gap 5 L BUN 13 Creatinine 1.00 Estim Creat Clear Calc 75 Estimated GFR > 60 Glucose 101 Calcium 8.8 Discharge Plan Discharge Discharging Clinician: Jm Aburto Anticipated Discharge Date/Time: 06/05/20 07:46 Patient Disposition: Home, Self-Care Activity: as tolerated Diet: low fiber Discharge Instructions: Activity as tolerated. Low residue diet. Patient Instructions: Piperacillin (By injection), Diverticulitis (DC), Low Fiber Diet (DC), Pain Management (DC), Diverticulitis Diet (DC), Antibiotic Form Stand Alone Forms: General Discharge Information Follow-up/Referrals: Jm Aburto MD [Physician] - 2 Weeks Discharge Medications: New amoxicillin-pot clavulanate 875-125 mg tablet 1 tablet PO Q12H Qty: 9 RF: 0 Continued atorvastatin 40 mg tablet 40 mg PO .QHS Qty: 90 RF: 1 pantoprazole 40 mg tablet,delayed release (DR/EC) 40 mg PO QAM Qty: 90 RF: 0 Date of admission: 06/03/20 13:12 Primary Care Provider: Gustavo Bauer Admitting Provider: Jm Aburto Attending physician on admission: Jm Aburto Condition: Stable
[2020-06-05] MEDS: PANTOPRAZOLE 40 MG TABLET PO (08:38)
== END 2020-06-05 10:38 | disposition home or self-care (01) ==
LOC: ANHED 12:02 → ANH2MED 13:56
PROVIDERS: General Practice; Admitting Provider Surgery; Emergency Provider Emergency Medicine; PCP Family Medicine; Visit Provider Surgery
DX: K57.92 Diverticulitis of intestine, part unspecified, without perforation or abscess without bleeding (principal); K21.9 Gastro-esophageal reflux disease without esophagitis
CPT/HCPCS: 36415; 74177; 80048; 80053; 81001; 83690; 85025; 85027; 96361; 96365; 96366; 96367; 96372; 96375; 96376; 99285; A9270; C9113; G0378; J1650; J1741; J1885; J2270; J2405; J2543; J7120; Q9967

== ENCOUNTER 2020-07-01 09:53 | Outpatient (CLI) | payer OTHER, SELFPAY ==
--- NOTE | 2020-07-01 10:56 | ECG_ITS ---
Measurements Intervals [place] Rate: 63 P: 56 KS: 179 QRS: 13 QRSD: 97 T: 39 QT: 381 QTc: 390 Interpretive Statements SINUS RHYTHM INCOMPLETE RIGHT BUNDLE BRANCH BLOCK BASELINE ARTIFACT- I, II, III, AVR, AVL, AVF BORDERLINE ECG Electronically Signed On 07-01-2020 12:19:25 CDT by Chacho Sosa D.O.
[2020-07-01 11:25] LABS: Basophils Absolute Auto 0.1 K/mm3 (0.0-0.1); Basophils Percent Auto 0.9 % (0.2-1.2); Eosinophils Absolute Auto 0.2 K/mm3 (0-0.3); Hematocrit 45.8 % (42.0-52.0); Hemoglobin 15.7 g/dL (14.0-18.0); Immature Granulocyte Absolute 0.03 K/mm3 (0.00-0.031); Immature Granulocyte Percent A 0.4 % (0-0.5); Lymphocytes Absolute Auto 1.84 K/mm3 (0.9-3.2); Lymphocytes Percent Auto 22.7 % (18.3-44.2); Mean Corpuscular HGB Conc 34.3 g/dl (32-36); Mean Corpuscular Volume 93.5 fl (80-100); Mean Platelet Volume 10.6 fl (7.4-10.4); Monocytes Absolute Auto 0.4 K/mm3 (0.1-0.6); Monocytes Percent Auto 5.3 % (2.6-8.5); Neutrophils Absolute Auto 5.5 K/mm3 (1.3-6.7); Neutrophils Percent Auto 67.7 % (45.5-73.1); Platelet Count Result 255 k/mm3 (150-375); Red Cell Distribution Width 12.8 % (11.5-14.5); White Blood Count 8.1 K/mm3 (4.5-10.0)
[2020-07-01 11:35] LABS: Anion Gap 5 mmol/L (8-16); Blood Urea Nitrogen 13 mg/dL (9-20); Calcium 9.4 mg/dL (8.4-10.2); Carbon Dioxide 30 mmol/L (22-30); Chloride 102 mmol/L (98-107); Estimated Glomerular Filt Rate > 60; Glucose 110 mg/dL (75-110); Potassium 4.2 mmol/L (3.4-5.0); Sodium 137 mmol/L (137-145)
== END 2020-07-01 09:54 | disposition home or self-care (01) ==
LOC: ANHSURGERY 09:54
PROVIDERS: PCP Family Medicine; Visit Provider Surgery
DX: Z01.818 Encounter for other preprocedural examination (principal); K57.92 Diverticulitis of intestine, part unspecified, without perforation or abscess without bleeding
CPT/HCPCS: 36415; 80048; 85025; 86850; 86900; 86901; 93005

== ENCOUNTER 2020-07-07 01:31 | Outpatient (CLI) | payer OTHER, SELFPAY ==
[2020-07-07 19:25] LABS: SARS-CoV-2 RNA PCR Negative
== END 2020-07-07 01:32 | disposition home or self-care (01) ==
LOC: ANHCOVIDDT 01:31
PROVIDERS: PCP Family Medicine; Visit Provider Surgery
DX: Z01.812 Encounter for preprocedural laboratory examination (principal); Z11.59 Encounter for screening for other viral diseases
CPT/HCPCS: 87635; C9803; U0003

== ENCOUNTER 2020-07-09 14:54 | Inpatient (IN) | payer OTHER, SELFPAY ==
[2020-07-01 10:13] VITALS: BMI 24.9
[2020-07-01 10:14] VITALS: BP 145/87; PULSE 62; RESP 18; TEMP 37.6; O2SAT 98
[2020-07-09] VITALS (13 sets, daily range): BP systolic 135–183; BP diastolic 66–95; PULSE 77–95; RESP 10–20; TEMP 36.2–37; O2SAT 96–100
--- NOTE | 2020-07-09 07:14 | WPDHPUPDATE1 ---
History and Physical Update Update Date/Time: 07/09/20 07:14 History and Physical has been reviewed, including an updated exam of the patient. There are NO changes in the patient's condition. Risks, benefits, and alternatives have been discussed and questions answered. Patient agrees to proceed with procedure.
--- NOTE | 2020-07-09 09:13 | WPDANESEPPF ---
Anes - Initial Pre Proc Eval Procedure: Operation Date: 07/09/20 10:30 Proposed Procedures p Hand Assisted Laparoscopic Sigmoidectomy - Jm Aburto MD Date/Time: 07/09/20 09:13 Surgeon: Jm Aburto MD Pre Op Diagnosis: diverticulitis with stricture Patient Data Age: 54 Gender: M Height: 5 ft 10 in Weight: 75.7 kg Last Vital Signs Temp 37.0 C 07/09/20 08:53 Pulse 62 07/01/20 10:14 Resp 16 07/09/20 08:53 BP 169/78 H 07/09/20 08:53 Pulse Ox 100 07/09/20 08:53 Allergies Allergy/AdvReac Type Severity Reaction Status Date / Time BEE STINGS Allergy Mild SWELLING Uncoded 07/01/20 10:05 CATS Allergy Mild SNEEZE Uncoded 07/01/20 10:05 Molds and Smuts Allergy Mild SNEEZE Uncoded 07/01/20 10:05 Home Medications Medication Instructions Recorded Confirmed Type pantoprazole 40 mg tablet,delayed 40 mg PO QAM #90 tablet 03/12/20 07/01/20 Rx release atorvastatin 40 mg PO HS 07/01/20 07/01/20 History Patient hx anesthesia problems: post op nausea/vomiting Family hx anesthesia problems: none PMFSH Past Medical History Medical History Acid reflux Diverticulitis Hyperlipidemia Surgical History Surgical History H/O inguinal hernia repair History of appendectomy Family History Family History Father Hypertension Mother Diverticular disease Diabetes mellitus Social History Social History Social History: 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 Smoking status: Never smoker Second hand tobacco smoke exposure: No Alcohol intake: current Drinks per week: 12 Alcohol use details: BEER Substance use: never Substance use type: marijuana Other substance usage details: Patient reports occasional marijuana use-last used last weekend Last use: 05/30/2020 Living arrangements: with family Gender identity (if verbalized by the patient): Male Spiritual care concerns: No Anes - Eval Final PreProcedure Day of Procedure 07/09/20 09:13 Patient weight: normal Heart: regular rate and rhythm Lungs: clear to auscultation Airway: Mallampati scale class II Neurological: alert and oriented Last oral intake: >/= 8 hours ASA classification: II Emergent: no Anesthetic plan: proceed Anesthesia type and monitoring: general ETT and standard monitoring Informed Consent: The patient's anesthetic plan and its attendant risks and benefits were discussed with the patient/family/POA. Questions were solicited and answers provided to the satisfaction of the patient/family/POA.
[2020-07-09] MEDS: LACTATED RINGERS 1,000 ML 30 ML IV CONT ×2 (09:21→13:18)
[2020-07-09] MEDS: ALVIMOPAN 12 MG CAPSULE PO ×2 (09:24→09:26)
[2020-07-09] MEDS: ACETAMINOPHEN 500 MG TABLET 1000 MG PO (09:24)
[2020-07-09] MEDS: KETOROLAC 15 MG/ML VIAL (*BKC) IV PUSH (09:26)
[2020-07-09] MEDS: ceFAZolin 2 GM/D5W 50 ML 2 GM/50 ML BAG IVPB (09:53)
[2020-07-09] MEDS: metroNIDAZOLE 500 MG/ISO 100ML 500 MG/100 ML BAG 100 MG IVPB (10:05)
[2020-07-09] MEDS: BUPIVACAINE/EPINEPHRINE 0.5% 10 ML VIAL 40 ML INFILTRATE (10:42)
--- NOTE | 2020-07-09 13:17 | PM.PROC ---
Procedure Note - Detailed Date of procedure: 07/09/20 Pre-op diagnosis: diverticulitis with stricture Diverticulitis with stricture Post-op diagnosis: same Procedure performed: Hand access laparoscopic sigmoid colon resection with hand-sewn anastomosis Description of procedure: The patient was taken to surgery and induced into general anesthesia. The abdomen was prepped and draped. The patient was in lithotomy in Ildefonso stirrups. Rectal tube in rectal irrigation were carried out. Stevens catheter was placed. The hand access port in the lower abdominal midline was marked on the skin. Local was infiltrated into the skin and the subcutaneous. Incision was made and dissection was carried down through the subcutaneous down to the anterior rectus fascia. We opened the anterior rectus fascia near the midline and then pulled the rectus muscles aside. The posterior rectus fascia was then opened in the peritoneal cavity entered. This incision was extended the length of the wound. The Jim was then placed in the abdomen. I felt for any adhesions around the hand access incision and none were noted. We then placed the GelPort. With a hand in the abdomen, I placed the left-sided 10 11 trocar. Local anesthetic was infiltrated prior to placement of this in each of the trocars. With the left-sided trocar placed, we insufflated the abdomen. Under direct vision we then placed an upper abdominal midline 10 11 trocar and a right-sided 12 mm trocar. General laparoscopic exploration was carried out. The Harmonic scalpel was used for literally all the intra-abdominal dissection. A few adhesions of small intestine in the pelvis were taken down so that the small intestine could be mobilized out of the pelvis and, with the help of a laparotomy sponge, kept on the right side of the abdomen. From there, we took down the lateral peritoneal attachments to the descending colon and sigmoid colon. The sigmoid colon was quite thickened particularly at its distal aspect which was likely the source of the stricture. Once the descending colon was mobilized, the sigmoid colon was a fairly short segment and no need for splenic flexure mobilization was found. The left ureter was found and carefully avoided. Adhesions to the sigmoid colon were divided. Minimal bleeding occurred. Eventually the sigmoid was completely mobilized. I then divided the right-sided peritoneal attachments to the sigmoid starting in the area of the sacral promontory and proceeding down to the upper rectum. I then divided the superior rectal artery and divided across the mesentery. I extended this division retrograde up to the end of the descending colon. The Harmonic scalpel was then used to divide the mesentery up to the proximal line of resection at the distal descending colon. The Harmonic scalpel was also used to divide the mesentery up to the distal line of resection, the upper rectum. I rechecked the ureter and any areas of dissection for bleeding. None were found and the ureter looked fine. We then stopped insufflation and removed the GelPort, leaving the Jim wound guard in place. I brought up the mobilized sigmoid colon. Using a TLC 75 stapler, I divided the distal descending colon. I then used the TLC 75 stapler and divided the upper rectum. The sigmoid specimen was then passed off labeled sigmoid colon. I recheck the area of the pelvis for any bleeding and did not see any. I brought the 2 ends of bowel in proximity. I removed some of the fatty tissue from both the rectal end and the distal descending colon in so that the anastomosis could be securely sutured to the bowel wall. From there, the hand-sewn 2 layer anastomosis was performed. The posterior outer layer of interrupted 4 0 silk Lembert sutures was placed. I then used the cautery to remove the staple line from both the distal descending colon and the upper rectum. The posterior inner layer of running, bidirectional, locking 4 0 chromic suture was
[2020-07-09] MEDS: ONDANSETRON INJ 4 MG/2 ML VIAL IV PUSH ×3 (13:42→19:19)
[2020-07-09] MEDS: fentaNYL CITRATE INJ (*CRX) 100 MCG/2 ML VIAL 25 MCG IV PUSH ×2 (14:06→14:12)
[2020-07-09] MEDS: diphenhydrAMINE HCl INJ 50 MG/ML VIAL 25 MG IV PUSH (14:34)
[2020-07-09] MEDS: SCOPOLAMINE 1.5 MG PATCH TRANSDERM (14:35)
--- NOTE | 2020-07-09 15:15 | ADMGEN ---
This patient, Lamberto Wright, was admitted to [facility] [place] Surg Room 303-01. Patient oriented to hospital policies and general routines including ID bracelet, bed and alarms, visiting hours, pain management, procedures, bathroom and other care routines, personal items, smoking policy, room service/diet, and visiting hours. Valuables list has been completed. Information on how to activate the Rapid Response Team has been discussed. Patient are encouraged to report perceived risks to care and to ask questions if they do not understand what they are told or what they should do.
[2020-07-09] MEDS: LACTATED RINGERS 1,000 ML 80 ML IV CONT (15:23)
[2020-07-09] MEDS: MORPHINE SULFATE (*CRX) 2 MG/ML INJ IV PUSH ×2 (15:28→17:31)
[2020-07-09] MEDS: PROMETHAZINE HCL 25 MG/ML AMPUL 12.5 MG IV PUSH (20:05)
[2020-07-09] MEDS: MORPHINE SULFATE (*CRX) 2 MG/ML INJ 4 MG IV PUSH ×2 (20:15→22:21)
[2020-07-09] MEDS: ENOXAPARIN 30 MG/0.3 ML SYRINGE SUB-Q (20:24)
--- NOTE | 2020-07-09 20:30 | PC.NURSE ---
Scopolamine patch found on bathroom sink. Stated, My saw that and took it off. Patch wasted and witnessed by PARISH Hadley.
[2020-07-10] VITALS: BP 162/86; PULSE 78; RESP 20; TEMP 37.1; O2SAT 99
[2020-07-10] MEDS: ONDANSETRON INJ 4 MG/2 ML VIAL IV PUSH (01:00)
[2020-07-10] MEDS: MORPHINE SULFATE (*CRX) 2 MG/ML INJ 4 MG IV PUSH (01:03)
[2020-07-10] MEDS: LACTATED RINGERS 1,000 ML 80 ML IV CONT (03:53)
[2020-07-10 06:00] VITALS: BP 130/73; PULSE 84; RESP 20; TEMP 37.1; O2SAT 100
[2020-07-10 06:30] LABS: Basophils Percent Auto 0.2 % (0.2-1.2); Hemoglobin 15.1 g/dL (14.0-18.0); Immature Granulocyte Absolute 0.07 K/mm3 (0.00-0.031); Immature Granulocyte Percent A 0.4 % (0-0.5); Lymphocytes Absolute Auto 1.58 K/mm3 (0.9-3.2); Lymphocytes Percent Auto 10.1 % (18.3-44.2); Mean Corpuscular HGB Conc 35.1 g/dl (32-36); Mean Corpuscular Hemoglobin 32.1 pg (26-34); Mean Corpuscular Volume 91.5 fl (80-100); Mean Platelet Volume 10.7 fl (7.4-10.4); Monocytes Absolute Auto 1.2 K/mm3 (0.1-0.6); Monocytes Percent Auto 7.3 % (2.6-8.5); Neutrophils Absolute Auto 12.8 K/mm3 (1.3-6.7); Platelet Count Result 313 k/mm3 (150-375); Red Cell Distribution Width 12.4 % (11.5-14.5); White Blood Count 15.7 K/mm3 (4.5-10.0)
[2020-07-10 06:44] LABS: Anion Gap 6 mmol/L (8-16); Blood Urea Nitrogen 8 mg/dL (9-20); Calcium 9.1 mg/dL (8.4-10.2); Carbon Dioxide 33 mmol/L (22-30); Chloride 98 mmol/L (98-107); Estimated CRCL calculation 93 ml/min; Estimated Glomerular Filt Rate > 60; Glucose 115 mg/dL (75-110); Potassium 3.9 mmol/L (3.4-5.0); Sodium 137 mmol/L (137-145)
--- NOTE | 2020-07-10 08:23 | WPDANESPN ---
Anes - Prog Note Post-Op Date/Time: 07/10/20 08:23 Cardiovascular status: normal Respiratory status: normal Airway patency: baseline Mental status: baseline Post-Op hydration status: normal Vital Signs: Last Vital Signs Temp 37.1 C 07/10/20 06:00 Pulse 84 07/10/20 06:00 Resp 20 07/10/20 06:00 BP 130/73 07/10/20 06:00 Pulse Ox 100 07/10/20 06:00 Pain Score (VAS): 3 I/O: Intake & Output 07/09/20 07/10/20 07/10/20 23:59 07:59 15:59 Intake Total 60 1200 Output Total 400 2200 Balance -340 -1000 Laboratory Tests 07/10/20 05:51 07/10/20 05:51 07/10/20 07/10/20 05:51 05:51 WBC 15.7 H RBC 4.70 Hgb 15.1 Hct 43.0 MCV 91.5 MCH 32.1 MCHC 35.1 RDW 12.4 Plt Count 313 MPV 10.7 H Immature Gran % (Auto) 0.4 Neut % (Auto) 82.0 H Lymph % (Auto) 10.1 L Cochran % (Auto) 7.3 Eos % (Auto) 0.0 Baso % (Auto) 0.2 Lymph # (Auto) 1.58 Cochran # (Auto) 1.2 H Eos # (Auto) 0.0 Baso # (Auto) 0.0 Abs Immat Gran (auto) 0.07 H Absolute Neuts (auto) 12.8 H Absolute Nucleated RBC 0.0 Nucleated RBC % 0.0 Sodium 137 Potassium 3.9 Chloride 98 Carbon Dioxide 33 H Anion Gap 6 L BUN 8 L D Creatinine 0.80 Estim Creat Clear Calc 93 Estimated GFR > 60 Glucose 115 H Calcium 9.1 Post-procedural complaints: none Patient Feedback: Patient satisfied with anesthetic care.
[2020-07-10] MEDS: ENOXAPARIN 30 MG/0.3 ML SYRINGE SUB-Q ×2 (08:46→20:34)
[2020-07-10] MEDS: PANTOPRAZOLE 40 MG TABLET PO (08:47)
[2020-07-10] MEDS: ALVIMOPAN 12 MG CAPSULE PO ×2 (08:47→20:34)
--- NOTE | 2020-07-10 09:55 | PM.PNGS ---
Progress Note: A&P Assessment and Plan (1) Diverticulitis: Code(s): K57.92 - Diverticulitis of intestine, part unspecified, without perforation or abscess without bleeding Status: Chronic Assessment and Plan: doing well after hand access laparoscopic sigmoidectomy done yesterday. Took 1 pain shot which appeared to be due to retained intraperitoneal CO2. Feeling better this morning. Took liquids only fair yesterday but feels like having more soft food today. Will ambulate and advance diet. Recheck labs and exam tomorrow. If continues to do well can probably go home tomorrow. Subjective Subjective Date/Time Seen: 07/10/20 09:55 Post Op day: 1 Patient reports: no new complaints, pain is less, tolerating liquids well, no flatus and no bowel movement Exam Const: General: comfortable and no acute distress GI: Inspection: non-distended and incision ( all incisions healing well) GI Palp: Yes Soft to palpation and Yes Tenderness to palpation present (GI) ( minimal appropriate tenderness) Auscultation: Hypoactive bowel sounds present Objective Data Vital Signs Vital Signs: Vital Signs - 24 hr 07/09/20 13:20 07/09/20 13:35 07/09/20 13:50 Temperature 36.2 C L Pulse Rate 95 78 77 Respiratory Rate 10 L 12 12 Blood Pressure 169/95 H 162/93 H 149/73 H Pulse Oximetry 100 98 99 07/09/20 14:05 07/09/20 14:20 07/09/20 14:35 Temperature Pulse Rate 77 79 89 Respiratory Rate 14 16 14 Blood Pressure 160/91 H 144/79 H 144/85 H Pulse Oximetry 98 96 97 07/09/20 14:50 07/09/20 15:00 07/09/20 15:15 Temperature Pulse Rate 89 82 78 Respiratory Rate 18 18 18 Blood Pressure 136/80 144/66 H 139/72 Pulse Oximetry 97 100 100 07/09/20 15:45 07/09/20 19:40 07/09/20 20:00 Temperature 37.0 C Pulse Rate 80 79 Respiratory Rate 18 20 Blood Pressure 135/70 183/82 H Pulse Oximetry 100 99 99 07/10/20 00:00 07/10/20 06:00 Temperature 37.1 C 37.1 C Pulse Rate 78 84 Respiratory Rate 20 20 Blood Pressure 162/86 H 130/73 Pulse Oximetry 99 100 Intake/Output Intake/Output: Intake & Output 07/07/20 07/08/20 07/09/20 07/10/20 23:59 23:59 23:59 23:59 Intake Total 1110 1440 Output Total 400 2200 Balance 710 -760 Meds/Results Medications: Active Medications Generic Name Dose Route Start Last Admin Trade Name Freq PRN Reason Stop Dose Admin Acetaminophen 500 mg 07/09/20 14:54 Tylenol Tablet PO Q6H PRN Mild Pain (1-3) or Fever Hydrocodone Bitart/Acetaminophen 1 tab 07/09/20 14:54 [place] 5-325 Mg PO Q4H PRN Pain Rated 4-6 Hydrocodone Bitart/Acetaminophen 1 tab 07/09/20 14:54 [place] 10-325 Mg PO Q4H PRN Pain Rated 7-10 Alvimopan 12 mg 07/10/20 09:00 07/10/20 08:47 Entereg PO 07/17/20 09:01 12 mg Q12HR ENEDINA Administration Atorvastatin Calcium 40 mg 07/09/20 21:00 07/09/20 22:23 Lipitor PO Not Given HS ENEDINA Enoxaparin Sodium 30 mg 07/09/20 21:00 07/10/20 08:46 Lovenox SUB-Q 30 mg Q12HR ENEDINA Administration Morphine Sulfate 2 mg 07/09/20 19:54 Morphine Sulfate Inj (*Crx) IV PUSH Q2H PRN Pain Rated 4-6 Morphine Sulfate 4 mg 07/09/20 19:55 07/10/20 01:03 Morphine Sulfate Inj (*Crx) IV PUSH 4 mg Q2H PRN Administration Pain Rated 7-10 Naloxone HCl 0.1 mg 07/09/20 14:54 Narcan IV PUSH Q2M PRN Opiate Reversal Ondansetron HCl 4 mg 07/09/20 14:54 07/10/20 01:00 Zofran Inj IV PUSH 4 mg Q4H PRN Administration Nausea And Vomiting Pantoprazole Sodium 40 mg 07/10/20 09:00 07/10/20 08:47 Protonix PO 40 mg QAM ENEDINA Administration Labs Labs: Laboratory Results - last 24 hr 07/10/20 07/10/20 05:51 05:51 WBC 15.7 H RBC 4.70 Hgb 15.1 Hct 43.0 MCV 91.5 MCH 32.1 MCHC 35.1 RDW 12.4 Plt Count 313 MPV 10.7 H Immature Gran % (Auto) 0.4 Neut % (Auto) 82.0 H Lymph % (Auto) 10.1 L [place] % (Auto) 7.3 Eos
[2020-07-10 10:00] VITALS: BP 127/72; PULSE 67; RESP 18; TEMP 36.8; O2SAT 100
[2020-07-10] MEDS: HYDROcodone/acetaminophen (*CRX) 10-325 MG TABLET 1 TAB PO ×2 (13:34→20:34)
[2020-07-10 14:00] VITALS: BP 125/80; PULSE 70; RESP 18; TEMP 36.8; O2SAT 99
[2020-07-10] MEDS: ATORVASTATIN 40 MG TABLET PO (20:34)
[2020-07-10 22:00] VITALS: BP 148/69; PULSE 74; RESP 16; TEMP 36.8; O2SAT 97
[2020-07-11] MEDS: HYDROcodone/acetaminophen (*CRX) 10-325 MG TABLET 1 TAB PO (01:10)
[2020-07-11 06:00] VITALS: BP 149/82; PULSE 70; RESP 20; TEMP 36.6; O2SAT 99
[2020-07-11 06:35] LABS: Hematocrit 43.4 % (42.0-52.0); Hemoglobin 14.6 g/dL (14.0-18.0); Mean Corpuscular HGB Conc 33.6 g/dl (32-36); Mean Corpuscular Hemoglobin 31.8 pg (26-34); Mean Corpuscular Volume 94.6 fl (80-100); Mean Platelet Volume 10.7 fl (7.4-10.4); Platelet Count Result 295 k/mm3 (150-375); Red Blood Count 4.59 M/mm3 (4.6-6.20); Red Cell Distribution Width 12.8 % (11.5-14.5); White Blood Count 11.6 K/mm3 (4.5-10.0)
[2020-07-11 06:56] LABS: Anion Gap 7 mmol/L (8-16); Blood Urea Nitrogen 12 mg/dL (9-20); Calcium 9.1 mg/dL (8.4-10.2); Carbon Dioxide 34 mmol/L (22-30); Chloride 100 mmol/L (98-107); Estimated CRCL calculation 93 ml/min; Estimated Glomerular Filt Rate > 60; Glucose 91 mg/dL (75-110); Potassium 3.8 mmol/L (3.4-5.0); Sodium 141 mmol/L (137-145)
[2020-07-11] MEDS: ALVIMOPAN 12 MG CAPSULE PO (08:41)
[2020-07-11] MEDS: ENOXAPARIN 30 MG/0.3 ML SYRINGE SUB-Q (08:41)
[2020-07-11] MEDS: PANTOPRAZOLE 40 MG TABLET PO (08:42)
--- NOTE | 2020-07-11 09:50 | PM.DS ---
DS: Admitting Diagnosis Admitting Diagnosis Admitting Diagnosis: Diverticulitis DS: Discharge Diagnosis Discharge Diagnosis (1) Diverticulitis: Code(s): K57.92 - Diverticulitis of intestine, part unspecified, without perforation or abscess without bleeding Status: Chronic (2) GERD (gastroesophageal reflux disease): Code(s): K21.9 - Gastro-esophageal reflux disease without esophagitis Status: Acute DS: Summary Time Spent with Patient Time attestation: Total time spent providing and/or coordinating discharge services: patient is a 54-year-old man who has had multiple episodes of diverticulitis and also has 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 After discussion in the office, he was prepared for surgery and taken to the operating room on July 09, 2020. He underwent hand access laparoscopic sigmoid colon resection with hand-sewn colorectal anastomosis. Postoperatively, the patient did well. He was tolerating liquids and advance to solid food on postop day 1. He was ambulating and comfortable on postop day 2. He was able to be discharged on postop day 2. In good condition. Pathology showed diverticular disease with acute inflammatory abscess. No evidence of malignancy. Exam GI: Inspection: non-distended and incision ( All incisions healing well) GI Palp: Yes Soft to palpation, No Tenderness to palpation present (GI), No Guarding due to palpation present (GI) and No Rebound tenderness present Auscultation: normal bowel sounds DS: Data Data Completed and Pending Completed studies during hospitalization: Pending at discharge 07/09/20 11:38 Surgical [PTH] Routine Labs on day of discharge: Labs from last 24 hours 07/11/20 07/11/20 05:51 05:51 WBC 11.6 H RBC 4.59 L Hgb 14.6 Hct 43.4 MCV 94.6 MCH 31.8 MCHC 33.6 RDW 12.8 Plt Count 295 MPV 10.7 H Sodium 141 Potassium 3.8 Chloride 100 Carbon Dioxide 34 H Anion Gap 7 L BUN 12 Creatinine 0.80 Estim Creat Clear Calc 93 Estimated GFR > 60 Glucose 91 Calcium 9.1 Discharge Plan Discharge Attending physician on discharge: Jm Aburto Discharging Clinician: Jm Aburto Anticipated Discharge Date/Time: 07/11/20 09:53 Patient Disposition: Home, Self-Care Activity: may shower, no straining and as tolerated Diet: regular Wound Care Instructions: incision open to air Patient Instructions: Antibiotic Form, Alvimopan (By mouth), Pain Management (DC), Colectomy (DC), Bowel Resection (DC) Stand Alone Forms: General Discharge Information Follow-up/Referrals: Jm Aburto MD [Physician] - 2 Weeks Discharge Medications: New hydrocodone-acetaminophen 5-325 mg tablet 1 - 2 tablet PO Q6H PRN (Reason: pain) Qty: 7 RF: 0 ketorolac 10 mg tablet 10 mg PO Q6H 4 Days Qty: 16 RF: 0 Continued atorvastatin 40 mg tablet 40 mg PO HS RF: 0 pantoprazole 40 mg tablet,delayed release (DR/EC) 40 mg PO QAM Qty: 90 RF: 0 Date of admission: 07/09/20 14:54 Primary Care Provider: Gustavo Bauer Admitting Provider: Jm Aburto Attending physician on admission: Jm Aburto Condition: Improved
== END 2020-07-11 11:37 | disposition home or self-care (01) | DRG 331 ==
LOC: ANH3MEDSUR 15:13
PROVIDERS: Admitting Provider Surgery; PCP Family Medicine; Visit Provider Surgery
PROC: 0D1E4Z4 Bypass Large Intestine to Cutaneous, Percutaneous Endoscopic Approach (ICD-10-PCS; principal; 2020-07-09 10:30)
DX: K57.92 Diverticulitis of intestine, part unspecified, without perforation or abscess without bleeding (principal); E78.5 Hyperlipidemia, unspecified; K21.9 Gastro-esophageal reflux disease without esophagitis
CPT/HCPCS: 36415; 80048; 85025; 85027; 88307; A9270; C1713; C1729; J0360; J0690; J1100; J1170; J1200; J1650; J1885; J2250; J2270; J2405; J2550; J2704; J2710; J3010; J7030; J7120

== ENCOUNTER 2021-01-18 15:12 | Outpatient (CLI) | payer OTHER, SELFPAY | END 2021-01-18 15:13 | disposition home or self-care (01) | LOC: ANHCOVIDVC 15:12 | PROVIDERS: PCP Family Medicine | DX: Z23 Encounter for immunization (principal) | CPT/HCPCS: 0001A; 91300 ==

== ENCOUNTER 2021-02-08 15:11 | Outpatient (CLI) | payer OTHER, SELFPAY | END 2021-02-08 15:12 | disposition home or self-care (01) | LOC: ANHCOVIDVC 15:11 | PROVIDERS: PCP Family Medicine | DX: Z23 Encounter for immunization (principal) | CPT/HCPCS: 0002A; 91300 ==

== ENCOUNTER 2022-03-09 01:05 | Emergency (ER) | payer OTHER, SELFPAY ==
[2022-03-09] VITALS (21 sets, daily range): BP systolic 124–198; BP diastolic 78–109; PULSE 60–94; RESP 10–29; TEMP 36.5–36.8; O2SAT 96–100
--- NOTE | ~2022-03-09 | CT_ITS ---
EXAMINATION: CT abdomen pelvis wo con DATE: 03/09/2022 01:59 INDICATION: Vomiting and abdominal pain. TECHNIQUE: Computed tomography (CT) of the abdomen and pelvis was performed without intravenous contr ast. Automated exposure control and iterative reconstruction technique were employed. The dose-length product was 610.17 mGy-cm. COMPARISON: 06/03/2020 FINDINGS: Lung bases are clear. Heart size normal. No pericardial or pleural effusion. Small sliding-type hiata l hernia. Liver, gallbladder, pancreas, spleen, bilateral adrenal glands and kidneys are normal. No u rolithiasis or hydronephrosis. No bowel obstruction. The appendix is not visualized. No pericecal inf lammatory change to suggest acute appendicitis. Bladder is normal. No free intraperitoneal gas or flu id. No pathologically enlarged abdominal or pelvic lymphadenopathy. Moderate lumbar and lower thoraci c spondylosis. Chronic mild anterior wedging at T12. IMPRESSION: 1. No acute intra-abdominal/pelvic process. 2. Small sliding-type hiatal hernia. Reviewed, dictated and finalized at location B.
--- NOTE | ~2022-03-09 | CT_ITS ---
EXAMINATION: CTA abdomen pelvis DATE: 03/09/2022 05:02 INDICATION: Periumbilical pain and vomiting TECHNIQUE: Computed tomography angiography of the abdomen and pelvis was performed with 100 cc Omnipa que 300 intravenous contrast. The dose-length product was 633.00 mGy-cm. Automated exposure control a nd iterative reconstruction technique were employed. COMPARISON: CT dated 03/09/2022. FINDINGS: Lung bases are unremarkable. Small hiatal hernia. No significant pleural or pericardial eff usion. Fatty infiltration of the liver. The spleen, pancreas, adrenal glands and kidneys are unremarkable. T here is atherosclerosis of the aorta without aneurysm or dissection. The celiac axis, SMA and renal a rteries are patent. No lymphadenopathy. Gallbladder is present. The bladder is mildly thickened, although this could be due to underdistention, cystitis or outlet ob struction. Prostate gland is enlarged. No acute osseous abnormality. IMPRESSION: 1. Mild bladder wall thickening which may be due to underdistention, cystitis in the appropriate clin ical setting or outlet obstruction from enlarged prostate gland. Reviewed, dictated and finalized at location A. IMPRESSION: 1. Mild bladder wall thickening which may be due to underdistention, cystitis i n the appropriate clinical setting or outlet obstruction from enlarged prostate gland.
[2022-03-09] MEDS: ONDANSETRON INJ 4 MG/2 ML VIAL IV PUSH (01:32)
[2022-03-09] MEDS: MORPHINE SULFATE (*CRX) 4 MG/ML INJ IV PUSH ×2 (01:32→04:59)
[2022-03-09] MEDS: SODIUM CHLORIDE 0.9% IV 1,000 ML 999 ML IV CONT (01:32)
[2022-03-09 02:03] LABS: Basophils Absolute Auto 0.1 K/mm3 (0.0-0.1); Basophils Percent Auto 0.4 % (0.2-1.2); Eosinophils Absolute Auto 0.1 K/mm3 (0-0.3); Eosinophils Percent Auto 0.5 % (0-4.4); Hematocrit 49.1 % (42.0-52.0); Hemoglobin 16.4 g/dL (14.0-18.0); Immature Granulocyte Absolute 0.05 K/mm3 (0.00-0.031); Immature Granulocyte Percent A 0.4 % (0-0.5); Lymphocytes Absolute Auto 2.22 K/mm3 (0.9-3.2); Lymphocytes Percent Auto 16.4 % (18.3-44.2); Mean Corpuscular HGB Conc 33.4 g/dl (32-36); Mean Corpuscular Hemoglobin 31.7 pg (26-34); Mean Platelet Volume 10.3 fl (7.4-10.4); Monocytes Percent Auto 7.3 % (2.6-8.5); Neutrophils Absolute Auto 10.1 K/mm3 (1.3-6.7); Platelet Count Result 294 k/mm3 (150-375); Red Blood Count 5.17 M/mm3 (4.6-6.20); Red Cell Distribution Width 13.2 % (11.5-14.5); White Blood Count 13.5 K/mm3 (4.5-10.0)
[2022-03-09 02:09] LABS: Alanine Aminotransferase 41 U/L (6-50); Albumin Level 5.2 g/dL (3.5-5.1); Alkaline Phosphatase 94 U/L (38-126); Anion Gap 9 mmol/L (8-16); Aspartate Amino Transferase 33 U/L (17-59); Bilirubin,Total 2.1 mg/dL (0.2-1.3); Blood Urea Nitrogen 21 mg/dL (9-20); Calcium 9.8 mg/dL (8.4-10.2); Carbon Dioxide 28 mmol/L (22-30); Chloride 99 mmol/L (98-107); Estimated CRCL calculation 81 ml/min; Estimated Glomerular Filt Rate > 60; Glucose 124 mg/dL (65-110); Lipase 65 U/L (23-300); Potassium 3.8 mmol/L (3.4-5.0); Sodium 136 mmol/L (137-145)
[2022-03-09] MEDS: DICYCLOMINE HCL INJ 20 MG/2 ML VIAL IM (03:03)
[2022-03-09] MEDS: PROMETHAZINE HCL 25 MG/ML AMPUL 12.5 MG IV PUSH (03:03)
[2022-03-09] MEDS: SODIUM CHLORIDE 0.9% IV 100 ML 999 ML (03:19)
[2022-03-09 03:49] LABS: Lactic Acid Reflex 1.2 mmol/L (0.7-2.0)
[2022-03-09] MEDS: hydrALAZINE HCL 20 MG/ML VIAL 10 MG IV PUSH (04:02)
--- NOTE | 2022-03-09 05:11 | ED.ABDPAIN ---
HPI - Abdominal Pain General Chief Complaint: Abdominal Pain Stated Complaint: Stomach issues Time Seen by Provider: 03/09/22 01:20 History of Present Illness HPI narrative: Patient is a 56-year-old male who presents ER with abdominal pain and nausea and vomiting. Has had belching associated with it. Ongoing for 2 days. Reports because he has not been able to keep down food he came in. Has history of a colonic stricture and diverticulitis and subsequently had part of his colon removed by Dr. Aburto last year. He has had no issues. He has no history of bowel obstruction. Denies fevers or chills or sweats. Has significant sharp cramping pains that he cannot provoke to occur on his own. No blood in his stool or emesis. He has had flatus and a bowel movement today but no diarrhea. Related Data Home Medications Medication Instructions Recorded Confirmed pantoprazole 40 mg tablet,delayed 40 mg PO QHS 04/01/21 04/01/21 release Allergies Allergy/AdvReac Type Severity Reaction Status Date / Time BEE STINGS Allergy Mild SWELLING Uncoded 04/01/21 13:43 CATS Allergy Mild SNEEZE Uncoded 04/01/21 13:43 Molds and Smuts Allergy Mild SNEEZE Uncoded 04/01/21 13:43 Review of Systems Review of Systems: All systems reviewed & are unremarkable except as noted in HPI and below Constitutional: Constitutional: Denies chills, Denies fever(s) and Reports weakness ENT: Denies nasal congestion and Denies sore throat Cardiovascular: Cardiovascular: Denies chest pain, Denies rapid heart rate and Denies radiating jaw, neck or arm pain Respiratory: Respiratory: Denies cough and Denies dyspnea Gastrointestinal: Gastrointestinal: Reports abdominal pain, Reports bloating, Denies constipation, Denies diarrhea, Reports nausea and Reports vomiting Genitourinary: Genitourinary: Denies dysuria and Denies urinary frequency Musculoskeletal: Musculoskeletal: Denies back pain and Denies muscle cramps PMFSH Past Medical History Medical History Diverticulitis 07/2020 Dyslipidemia History of tongue cancer Prediabetes Surgical History Surgical History Cancer of anterior two-thirds of tongue, ventral surface 2018 - s/p Excision H/O inguinal hernia repair (~2004) left History of appendectomy (~1975) S/P laparoscopic-assisted sigmoidectomy (~07/09/20) 07/09/2020 - secondary to diverticulitis Family History Family History Father Hypertension Mother Diverticular disease Diabetes mellitus Social History Social History Social History: 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 HEAD: Normocephalic, atraumatic. EYES: PERRL and EOMI. ENT: Mucous membranes moist. CHEST: Clear to auscultation. No respiratory distress. HEART: Regular rate and rhythm. Normal peripheral pulses. ABDOMEN: Soft, nontender, nondistended, normal active bowel sounds. Frequent belching and dry heaving. EXTREMITIES: Normal range of motion. No edema. SKIN: Warm, dry, no rash. NEURO: Alert and oriented x3. PSYCH: Normal mood and affect. Course Course Emergency Course: Patient was having persistent pain after for CT scan. Blood press
--- NOTE | 2022-03-09 07:06 | PC.NURSE ---
pt asking for scripts to be sent to [facility] unable to electronically send at this time. Will call and leave perscriptions to [facility] in [place].
--- NOTE | 2022-03-09 07:13 | PC.NURSE ---
[facility] in [place] did not answer after RN attempted to call in scripts per ERPs request due to inability to electronically send scripts.. A detailed message was left with [facility] on perscriptions names, dosage, qty, perscriber, refills. Told to call back with any questions.
== END 2022-03-09 07:09 | disposition home or self-care (01) ==
PROVIDERS: Emergency Provider Emergency Medicine; PCP Family Medicine
DX: R11.2 Nausea with vomiting, unspecified (principal); R10.33 Periumbilical pain; E78.5 Hyperlipidemia, unspecified; Z85.810 Personal history of malignant neoplasm of tongue; Z90.49 Acquired absence of other specified parts of digestive tract
CPT/HCPCS: 36415; 74174; 74176; 80053; 83605; 83690; 85025; 96361; 96372; 96374; 96375; 96376; 99284; J0360; J0500; J2270; J2405; J2550; J7030; Q9967

== ENCOUNTER 2022-06-28 06:33 | Outpatient (CLI) | payer OTHER, SELFPAY ==
--- NOTE | ~2022-06-28 | MR_ITS ---
EXAMINATION: MR shoulder LT wo con DATE: 06/28/2022 07:19 INDICATION: Left shoulder pain. TECHNIQUE: Magnetic resonance imaging (MRI) of the left shoulder was performed without intravenous co ntrast. Sequences included axial PD-weighted FS FSE, coronal oblique PD-weighted FS FSE and T2-weight ed FS FSE, and sagittal oblique T2-weighted FS FSE and T1-weighted FSE. COMPARISON: None. FINDINGS: Coracoacromial arch: The acromion undersurface is curved in morphology (type II). There is severe acromioclavicular joint osteoarthritis including inferiorly directed osteophytes. There is moderate subacromial/subdeltoid bu rsitis. Rotator cuff: There is severe supraspinatus tendinopathy. There is an interstitial tear of infraspinatus tendon at its distal insertion measuring 5 mm anterior to posterior by 4 mm proximal to distal by 30% tendon th ickness. Teres minor tendon is normal. There is mild subscapularis tendinopathy. There is no asymmetr ic fatty atrophy of the rotator cuff muscle bellies. There is edema at the supraspinatus myotendinous junction, consistent with mild strain. Biceps tendon and glenoid labrum: Biceps tendon is in bicipital groove. There is mild intra-articular biceps tendinopathy. There is deg eneration of the glenoid labrum without well-defined tear. Fluid: There is no glenohumeral joint effusion. Bones/cartilage: Humeral head cartilage is normal. There is cartilage surface irregularity of glenoid. IMPRESSION: 1. Severe rotator cuff tendinopathy. Interstitial tear of infraspinatus tendon. 2. Mild strain of supraspinatus muscle (grade 1). 3. Mild glenoid chondrosis. 4. Severe acromioclavicular joint osteoarthritis. 5. Moderate subacromial/subdeltoid bursitis. 6. Mild intra-articular biceps tendinopathy. Reviewed, dictated and finalized at location A.
== END 2022-06-28 06:34 | disposition home or self-care (01) ==
PROVIDERS: PCP Family Medicine; Visit Provider Nurse Practitioner Family
DX: S46.912A Strain of unspecified muscle, fascia and tendon at shoulder and upper arm level, left arm, initial encounter (principal); M19.012 Primary osteoarthritis, left shoulder; M75.52 Bursitis of left shoulder
CPT/HCPCS: 73221

== ENCOUNTER 2022-09-06 14:46 | Outpatient (CLI) | payer OTHER, SELFPAY ==
--- NOTE | 2022-09-06 15:04 | ECG_ITS ---
Measurements Intervals [place] Rate: 69 P: 34 OR: 174 QRS: -2 QRSD: 101 T: 19 QT: 369 QTc: 397 Interpretive Statements SINUS RHYTHM INCOMPLETE RIGHT BUNDLE BRANCH BLOCK LEFT VENTRICULAR HYPERTROPHY BASELINE ARTIFACT- I, III, AVR, AVL, AVF, V1-V3 BORDERLINE ECG COMPARED TO ECG 07/01/2020 11:29:07 NO SIGNIFICANT CHANGES Electronically Signed On 09-06-2022 22:53:32 [employer]ATER by Chacho Sosa D.O.
== END 2022-09-06 14:47 | disposition home or self-care (01) ==
PROVIDERS: PCP Family Medicine; Visit Provider Orthopaedic Surgery
DX: Z01.818 Encounter for other preprocedural examination (principal); E78.5 Hyperlipidemia, unspecified; I45.19 Other right bundle-branch block
CPT/HCPCS: 93005

== ENCOUNTER 2022-12-26 11:21 | Day surgery (SDC) | payer OTHER, SELFPAY ==
[2022-11-22 10:09] VITALS: BMI 27.1
[2022-12-13 08:55] VITALS: BMI 27.1
--- NOTE | 2022-12-23 15:15 | PM.HPGS ---
History of Present Illness History of Present Illness Consent: Risks, benefits, and alternatives have been discussed and questions answered. Patient agrees to proceed with procedure. Chief complaint: Diverticulitis Narrative: Lamberto Wright is a 57 year old male referred for suspected diverticulitis. He had his sigmoid colon resection for diverticulitis 3 years ago but is now having some symptoms with a change in bowel habits, very loose stools and some abdominal pain. The pain he began to notice last May and it seemed to be related sometimes to stress. He will rarely see blood in his stools which she believes is from hemorrhoids. Review of Systems Review of Systems: All systems reviewed & are unremarkable except as noted in HPI and below PMFSH Past Medical History Medical History Allergies Arthritis of left acromioclavicular joint Diverticulitis 07/2020 Dyslipidemia History of tongue cancer Prediabetes Tear of left rotator cuff Surgical History Surgical History Cancer of anterior two-thirds of tongue, ventral surface 2018 - s/p Excision H/O inguinal hernia repair (~2004) left History of appendectomy (~1975) S/P laparoscopic-assisted sigmoidectomy (~07/09/20) 07/09/2020 - secondary to diverticulitis Family History Family History Father Hypertension Mother Diverticular disease Diabetes mellitus Grandparent Cancer Sibling Diabetes mellitus Heart disease Social History Social History Social History: Lamberto is . 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 Smoking status: Never smoker Second hand tobacco smoke exposure: No Alcohol intake: current Drinks per week: 12 Alcohol use details: socially Substance use: current Substance use type: marijuana Other substance usage details: occasional Lack of Transportation: No Lack of Food: Never True Current Housing: I Have Housing Concerned About Future Housing: No Difficulty Paying Gas/Electric Bills: No Difficulty Paying for Meds: No Currently Unemployed: No Education: High School Diploma/GED Difficulty w/ Childcare or Family Care: No Living arrangements: with family Additional occupation/education comments: [employer] Gender identity (if verbalized by the patient): Male Sexual Orientation (if Verbalized by the Patient): Straight or Heterosexual Spiritual care concerns: No Meds Home Medications and Allergies Home Medications Medication Instructions Recorded Confirmed Type pantoprazole 20 mg tablet,delayed 20 mg PO QAM #90 tabs 08/11/22 12/26/22 Rx release atorvastatin 40 mg tablet 40 mg PO HS #90 tabs 09/21/22 12/26/22 Rx Allergies Allergy/AdvReac Type Severity Reaction Status Date / Time bee venom protein (honey bee) Allergy Intermediate Swelling Verified 12/26/22 11:46 mold Allergy Intermediate Sneezing Verified 12/26/22 11:46 cat dander Allergy Mild Sneezing Verified 12/26/22 11:46 Exam Resp: Auscultation: clear to auscultation bilaterally Cardio: Rate: regular rate Rhythm: regular rhythm GI: GI Palp: Yes Soft to palpation and No Tenderness to palpation present (GI) Assessment and Plan Assessment and plan (1) Diverticulitis: Code(s): K57.92 - Diverticulitis of intestine, part unspecified, without perforation or abscess without bleeding Status: Acute Assessment and Plan: Colonoscopy with possible biopsy or polypectomy or cautery or injection of substances.
[2022-12-26] VITALS (16 sets, daily range): BP systolic 162–208; BP diastolic 84–118; PULSE 60–88; RESP 18–24; TEMP 36.1–37.1; O2SAT 99–100
--- NOTE | 2022-12-26 07:59 | WPDANESEPPF ---
Anes - Initial Pre Proc Eval Procedure: Operation Date: 12/26/22 13:00 Proposed Procedures p Diagnostic Colonoscopy - Martinez Joya MD Date/Time: 12/26/22 07:59 Surgeon: Martinez Joya MD Pre Op Diagnosis: Diverticulitis Patient Data Age: 57 Gender: M Height: 1.78 m Weight: 86 kg Allergies Allergy/AdvReac Type Severity Reaction Status Date / Time bee venom protein (honey bee) Allergy Intermediate Swelling Verified 12/26/22 11:46 mold Allergy Intermediate Sneezing Verified 12/26/22 11:46 cat dander Allergy Mild Sneezing Verified 12/26/22 11:46 Home Medications Medication Instructions Recorded Confirmed Type pantoprazole 20 mg tablet,delayed 20 mg PO QAM #90 tabs 08/11/22 12/13/22 Rx release atorvastatin 40 mg tablet 40 mg PO HS #90 tabs 09/21/22 12/13/22 Rx Patient hx anesthesia problems: none Family hx anesthesia problems: none Results Review: All pre-operative results and documents have been reviewed as part of the pre-operative evaluation. [facility] Past Medical History Medical History Allergies Arthritis of left acromioclavicular joint Diverticulitis 07/2020 Dyslipidemia History of tongue cancer Prediabetes Tear of left rotator cuff Surgical History Surgical History Cancer of anterior two-thirds of tongue, ventral surface 2017 - s/p Excision H/O inguinal hernia repair (~2004) left History of appendectomy (~1975) S/P laparoscopic-assisted sigmoidectomy (~07/09/20) 07/09/2020 - secondary to diverticulitis Family History Family History Father Hypertension Mother Diverticular disease Diabetes mellitus Grandparent Cancer Sibling Diabetes mellitus Heart disease Social History Social History (Updated 11/22/22 @ 10:13 by Marylu Miller RN) Social History: Lamberto is . 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 Smoking status: Never smoker Second hand tobacco smoke exposure: No Alcohol intake: current Drinks per week: 12 Alcohol use details: socially Substance use: current Substance use type: marijuana Other substance usage details: occasional Lack of Transportation: No Lack of Food: Never True Current Housing: I Have Housing Concerned About Future Housing: No Difficulty Paying Gas/Electric Bills: No Difficulty Paying for Meds: No Currently Unemployed: No Education: High School Diploma/GED Difficulty w/ Childcare or Family Care: No Living arrangements: with family Additional occupation/education comments: [employer] Gender identity (if verbalized by the patient): Male Sexual Orientation (if Verbalized by the Patient): Straight or Heterosexual Spiritual care concerns: No Anes - Eval Final PreProcedure Day of Procedure 12/26/22 07:59 Patient weight: overweight Heart: regular rate and rhythm Lungs: clear to auscultation Airway: Mallampati scale class II Neurological: alert and oriented Last oral intake: >/= 8 hours ASA classification: III Emergent: no Anesthetic plan: proceed Anesthesia type and monitoring: general GIVS and standard monitoring Results Review: All pre-operative results and documents have been reviewed as part of the pre-operative evaluation. Informed Consent: The patient's anesthetic plan and its attendant risks and benefits were discussed with the patient/family/POA. Questions were solicited and answers provided to the satisfaction of the patient/family/POA.
[2022-12-26] MEDS: LACTATED RINGERS 1,000 ML 150 ML IV CONT (11:57)
[2022-12-26] MEDS: ONDANSETRON INJ 4 MG/2 ML VIAL IV PUSH (12:50)
[2022-12-26] MEDS: hydrALAZINE HCL 20 MG/ML VIAL 5 MG IV PUSH (12:51)
[2022-12-26] MEDS: FAMOTIDINE 20 MG/2 ML VIAL IV PUSH (12:55)
[2022-12-26] MEDS: fentaNYL CITRATE INJ (*CRX) 100 MCG/2 ML VIAL 50 MCG IV PUSH (13:24)
[2022-12-26] MEDS: diphenhydrAMINE HCl INJ 50 MG/ML VIAL 25 MG IV PUSH (13:27)
[2022-12-26] MEDS: hydrALAZINE HCL 20 MG/ML VIAL 10 MG IV PUSH (13:50)
--- NOTE | 2022-12-26 13:52 | P.PNAN_ITS ---
Anes - Prog Note Post-Op Date/Time: 12/26/22 13:52 Cardiovascular status: other (hypertension) Respiratory status: normal Airway patency: baseline Mental status: baseline Post-Op hydration status: normal Vital Signs: Last Vital Signs Temp 36.1 C L 12/26/22 11:40 Pulse 68 12/26/22 13:40 Resp 24 H 12/26/22 13:40 BP 193/104 H 12/26/22 13:40 Pulse Ox 99 12/26/22 13:40 O2 Del Method Room Air 12/26/22 13:40 Pain Score (VAS): 3 I/O: Intake & Output 12/25/22 12/26/22 12/26/22 23:59 07:59 15:59 Intake Total 420 Output Total 3 Balance 417 Post-procedural complaints: none Patient Feedback: Patient satisfied with anesthetic care. Other Findings: Patient had hypertension mid procedure up to 220/110. 5 mg hydralazine given at procedure end. Patient having abdominal discomfort and nausea afterwards with hypertension 200's/110's. Patient prior to procedure said this exact situation happened before. He was sent to ER where BP resolved on own and abdominal CT was negative. He has gone to ED for abdominal pain and hypertension an additional time with negative work up. Patient is currently being worked up for hypertension by his primary. His pre op BP was 164/108. In recovery he was given 4 mg zofran, 20 mg pepcid and an additional 5 mg hydralazine. This see med to lower BP into 190's/100's. Due to complaints of continuing pain and nausea, he was given 50 mcg fentanyl and [address] Joya did an exam and found nothing worrisome and gave patient reassurance. Patient given 10 mg hydralazine. BP under more control but patient still in pain. Patient given 15 mg Toradol and 12.5 mg Promethazine. Patient's pain and nausea now under control. BP back to baseline. Patient advised that if abdominal pain does not resolve, gets worse or if chest pain, dyspnea or pounding headaches start to occur to go to ED. Patient also told to follow up with primary about HTN.
[2022-12-26] MEDS: KETOROLAC 30 MG/ML VIAL (*BKC) 15 MG IV PUSH (14:05)
[2022-12-26] MEDS: PROMETHAZINE HCL 25 MG/ML AMPUL 12.5 MG IV PUSH (14:36)
== END 2022-12-26 15:15 | disposition home or self-care (01) ==
LOC: ASC 11:26
PROVIDERS: PCP Family Medicine; Visit Provider Internal Medicine Gastroenterology
PROC: 0DJD8ZZ Inspection of Lower Intestinal Tract, Via Natural or Artificial Opening Endoscopic (ICD-10-PCS; CPT 45378; principal; 2022-12-26 13:00)
DX: K57.92 Diverticulitis of intestine, part unspecified, without perforation or abscess without bleeding (principal)
CPT/HCPCS: 45378

== ENCOUNTER 2023-07-20 07:08 | Emergency (ER) | payer OTHER, SELFPAY ==
[2023-07-20] VITALS (10 sets, daily range): BP systolic 179–225; BP diastolic 98–117; PULSE 56–73; RESP 11–21; TEMP 36.8–37.1; O2SAT 97–100
--- NOTE | ~2023-07-20 | CT_ITS ---
EXAMINATION: CT abdomen pelvis w con DATE: 07/20/2023 09:33 INDICATION: Low back pain. TECHNIQUE: Computed tomography (CT) of the abdomen and pelvis was performed with 100 mL Omnipaque 350 intravenous contrast. Automated exposure control and iterative reconstruction technique were employe d. The dose-length product was 507.20 mGy-cm. COMPARISON: CT abdomen and pelvis 03/09/2022 FINDINGS: The visualized portions of the lung bases demonstrate minimal atelectasis. No pleural effus ion. The heart size is normal. No pericardial effusion. There is a small sliding hiatal hernia. The l iver, gallbladder, spleen, pancreas, adrenal glands, and kidneys are normal. The prostate is mildly e nlarged. There is prominent fat in the inguinal canals that may be hernias. There are no dilated loop s of bowel. The appendix is not visualized. There are no pathologically enlarged lymph nodes. There i s no free intraperitoneal fluid. There is severe lower lumbar spondylosis. There is mild chronic ante rior wedging of multiple vertebral bodies. IMPRESSION: 1. Small sliding hiatal hernia. 2. Severe lower lumbar spondylosis. Reviewed, dictated and finalized at location A.
--- NOTE | 2023-07-20 08:20 | ECG_ITS ---
Measurements Intervals [place] Rate: 60 P: 61 HI: 168 QRS: 15 QRSD: 95 T: 46 QT: 407 QTc: 409 Interpretive Statements SINUS RHYTHM WITH SINUS ARRHYTHMIA POSSIBLE RIGHT VENTRICULAR CONDUCTION DELAY [RSR (QR) IN V1/V2] BORDERLINE ECG COMPARED TO ECG 09/06/2022 15:20:20 SINUS ARRHYTHMIA NOW PRESENT Electronically Signed On 07-20-2023 9:05:33 CDT by Yuri Ibarra M.D.
--- NOTE | 2023-07-20 08:26 | ED.NAVMDI ---
HPI - Nausea/Vomiting/Diarrhea General Chief complaint: Nausea/Vomiting/Diarrhea Stated complaint: vomiting/abd pain Time Seen by Provider: 07/20/23 08:16 History of Present Illness HPI Narrative: Patient is a 57-year-old male who presents to the emergency department at this morning complaining of periumbilical abdominal pain. Patient states that the pain started Monday of this week and has been intermittent. This morning, pain returned and it was worse so he decided to come to the emergency department for further evaluation. Patient admits that he does have a history of diverticulitis and has a required a sigmoidectomy secondary to this. He also has a history of abdominal hernia and appendicitis leading to an appendectomy. Patient admits to nausea and nonbloody nonbilious emesis. Patient denies any chest pain, shortness of breath, dysuria, hematuria, constipation, diarrhea, melena, hematochezia, fevers or chills. He also denies any headaches, dizziness, lightheadedness, blurry visions, focal weakness, numbness and or tingling. There are no other modifying, alleviating, or precipitating factors at this time. Related Data Allergies Allergy/AdvReac Type Severity Reaction Status Date / Time bee venom protein (honey bee) Allergy Intermediate Swelling Verified 07/13/23 15:28 mold Allergy Intermediate Sneezing Verified 07/13/23 15:28 cat dander Allergy Mild Sneezing Verified 07/13/23 15:28 Review of Systems Review of Systems: All systems are reviewed and are negative unless stated otherwise in the HPI. [facility] Past Medical History Medical History Abdominal pain Allergies Arthritis of left acromioclavicular joint Diverticulitis 07/2020 Dyslipidemia History of tongue cancer Left shoulder pain Pain associated with defecation Prediabetes Skin lesion of chest wall Tear of left rotator cuff Surgical History Surgical History Cancer of anterior two-thirds of tongue, ventral surface 2017 - s/p Excision 2022? H/O inguinal hernia repair (~2004) left History of appendectomy (~1975) S/P laparoscopic-assisted sigmoidectomy (~07/09/20) 07/09/2020 - secondary to diverticulitis Family History Family History Father Hypertension Mother Diverticular disease Diabetes mellitus Grandparent Cancer Sibling Diabetes mellitus Heart disease Social History Social History Social History: Lamberto is . 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 Smoking status: Never smoker Second hand tobacco smoke exposure: No Alcohol intake: current Drinks per week: 12 Alcohol use details: socially Substance use: current Substance use type: marijuana Other substance usage details: occasional Lack of Transportation: No Lack of Food: Never True Current Housing: I Have Housing Concerned About Future Housing: No Difficulty Paying Gas/Electric Bills: No Difficulty Paying for Meds: No Currently Unemployed: No Education: High School Diploma/GED Difficulty w/ Childcare or Family Care: No Living arrangements: with family Additional occupation/education comments: [employer] Gender identity (if verbalized by the patient): Male Sexual Orientation (if Verbalized by the Patient): Straight or Heterosexual Spiritual care concerns: No Exam Narrative: General: Alert, awake, afebrile, in moderate distress. HEENT: PERRL, no rhinorrhea, no post nasal drip, oropharynx clear. Neck: Trachea midline, no JVD, no lymphadenopathy. Cardiovascular: [Regular rate and rhythm, no murmurs, rubs or gallops, no peripheral edema. Respiratory: Clear to auscultation bilaterally, no tachypnea, no wheezing, no rhonchi, no rubs, no respiratory distress. Abdomen: S
[2023-07-20] MEDS: ONDANSETRON INJ 4 MG/2 ML VIAL IV PUSH (08:47)
[2023-07-20] MEDS: MORPHINE SULFATE (*CRX) 4 MG/ML INJ IV PUSH (08:47)
[2023-07-20 08:53] LABS: Basophils Percent Auto 0.3 % (0.2-1.2); Eosinophils Percent Auto 0.5 % (0-4.4); Hematocrit 49.7 % (42.0-52.0); Hemoglobin 16.8 g/dL (14.0-18.0); Immature Granulocyte Absolute 0.03 K/mm3 (0.00-0.031); Immature Granulocyte Percent A 0.3 % (0-0.5); Lymphocytes Absolute Auto 1.24 K/mm3 (0.9-3.2); Lymphocytes Percent Auto 14.3 % (18.3-44.2); Mean Corpuscular HGB Conc 33.8 g/dl (32-36); Mean Corpuscular Hemoglobin 31.8 pg (26-34); Mean Platelet Volume 10.4 fl (7.4-10.4); Monocytes Absolute Auto 0.5 K/mm3 (0.1-0.6); Monocytes Percent Auto 5.9 % (2.6-8.5); Neutrophils Absolute Auto 6.8 K/mm3 (1.3-6.7); Neutrophils Percent Auto 78.7 % (45.5-73.1); Platelet Count Result 290 k/mm3 (150-375); Red Blood Count 5.29 M/mm3 (4.6-6.20); Red Cell Distribution Width 12.7 % (11.5-14.5); White Blood Count 8.7 K/mm3 (4.5-10.0)
[2023-07-20 08:59] LABS: Alanine Aminotransferase 46 U/L (6-50); Alkaline Phosphatase 86 U/L (38-126); Anion Gap 11 mmol/L (8-16); Aspartate Amino Transferase 38 U/L (17-59); Bilirubin,Total 1.7 mg/dL (0.2-1.3); Blood Urea Nitrogen 21 mg/dL (9-20); Calcium 9.7 mg/dL (8.4-10.2); Carbon Dioxide 27 mmol/L (22-30); Chloride 98 mmol/L (98-107); Estimated CRCL calculation 73 ml/min; Estimated Glomerular Filt Rate > 60; Glucose 144 mg/dL (65-110); Lipase 73 U/L (23-300); Potassium 3.8 mmol/L (3.4-5.0); Sodium 136 mmol/L (137-145)
[2023-07-20 09:25] LABS: Lactic Acid Reflex 1.3 mmol/L (0.7-2.0)
[2023-07-20 09:50] LABS: Influenza A QL RT-PCR Negative (Negative); Influenza B QL RT-PCR Negative (Negative); RSV RNA, RT-PCR Negative (Negative); SARS-CoV-2 RNA PCR Negative (Negative)
[2023-07-20] MEDS: PANTOPRAZOLE SODIUM IV 40 MG VIAL IV PUSH (10:07)
== END 2023-07-20 10:59 | disposition home or self-care (01) ==
PROVIDERS: Emergency Provider Emergency Medicine; PCP Family Medicine
DX: K29.70 Gastritis, unspecified, without bleeding (principal); K21.9 Gastro-esophageal reflux disease without esophagitis; Z20.822 Contact with and (suspected) exposure to COVID-19; R73.03 Prediabetes; M19.012 Primary osteoarthritis, left shoulder; Z85.810 Personal history of malignant neoplasm of tongue; Z90.49 Acquired absence of other specified parts of digestive tract; R94.31 Abnormal electrocardiogram [ECG] [EKG]
CPT/HCPCS: 36415; 74177; 80053; 82248; 83605; 83690; 85025; 87637; 93005; 96374; 96375; 99284; C9113; J2270; J2405; Q9967

== ENCOUNTER 2023-08-17 07:00 | Outpatient (NON) | payer OTHER, SELFPAY | END 2023-08-17 07:01 | disposition home or self-care (01) | LOC: ANHLAB 08-18 07:34 | PROVIDERS: PCP Family Medicine; Visit Provider Internal Medicine Gastroenterology | DX: K21.9 Gastro-esophageal reflux disease without esophagitis (principal) | CPT/HCPCS: 88305 ==

== ENCOUNTER 2023-08-17 08:48 | Day surgery (SDC) | payer OTHER, SELFPAY ==
[2023-07-26 13:11] VITALS: BMI 27.1
--- NOTE | 2023-08-16 07:19 | WPDANESEPPF ---
Anes - Initial Pre Proc Eval Procedure: Operation Date: 08/17/23 10:30 Proposed Procedures p Esophagogastroduodenoscopy - Martinez Joya MD Date/Time: 08/16/23 07:19 Surgeon: Martinez Joya MD Pre Op Diagnosis: GERD without esophagitis Patient Data Age: 57 Gender: M Height: 1.78 m Weight: 86 kg Allergies Allergy/AdvReac Type Severity Reaction Status Date / Time bee venom protein (honey bee) Allergy Intermediate Swelling Verified 08/17/23 09:24 mold Allergy Intermediate Sneezing Verified 08/17/23 09:24 cat dander Allergy Mild Sneezing Verified 08/17/23 09:24 Home Medications Medication Instructions Recorded Confirmed Type atorvastatin 40 mg tablet 40 mg PO HS #90 tabs 03/20/23 08/17/23 Rx pantoprazole 20 mg tablet,delayed 20 mg PO QAM #90 tabs 06/26/23 08/17/23 Rx release Patient hx anesthesia problems: none Family hx anesthesia problems: none Results Review: All pre-operative results and documents have been reviewed as part of the pre-operative evaluation. [facility] Past Medical History Medical History Abdominal pain Allergies Arthritis of left acromioclavicular joint Diverticulitis 07/2020 Dyslipidemia History of tongue cancer Left shoulder pain Pain associated with defecation Prediabetes Skin lesion of chest wall Tear of left rotator cuff Surgical History Surgical History Cancer of anterior two-thirds of tongue, ventral surface 2017 - s/p Excision 2022? H/O inguinal hernia repair (~2004) left History of appendectomy (~1975) S/P laparoscopic-assisted sigmoidectomy (~07/09/20) 07/09/2020 - secondary to diverticulitis Family History Family History Father Hypertension Mother Diverticular disease Diabetes mellitus Grandparent Cancer Sibling Diabetes mellitus Heart disease Social History Social History (Updated 08/17/23 @ 09:39 by Jeronimo Pérez DO) Social History: Lamberto is . 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 Smoking status: Never smoker Second hand tobacco smoke exposure: No Alcohol intake: current Alcohol use details: 6 drinks/day Substance use: never Substance use type: does not use Other substance usage details: occasional Lack of Transportation: No Lack of Food: Never True Current Housing: I Have Housing Concerned About Future Housing: No Difficulty Paying Gas/Electric Bills: No Difficulty Paying for Meds: No Currently Unemployed: No Education: High School Diploma/GED Difficulty w/ Childcare or Family Care: No Living arrangements: with family Additional occupation/education comments: [employer] Gender identity (if verbalized by the patient): Male Sexual Orientation (if Verbalized by the Patient): Straight or Heterosexual Spiritual care concerns: No Anes - Eval Final PreProcedure Day of Procedure 08/16/23 07:19 Patient weight: overweight Heart: regular rate and rhythm Lungs: clear to auscultation Airway: Mallampati scale class II Neurological: alert and oriented Last oral intake: >/= 8 hours ASA classification: III Emergent: no Anesthetic plan: proceed Anesthesia type and monitoring: general GIVS and standard monitoring Results Review: All pre-operative results and documents have been reviewed as part of the pre-operative evaluation. Informed Consent: The patient's anesthetic plan and its attendant risks and benefits were discussed with the patient/family/POA. Questions were solicited and answers provided to the satisfaction of the patient/family/POA.
--- NOTE | 2023-08-16 13:21 | PM.HPGS ---
History of Present Illness History of Present Illness Consent: Risks, benefits, and alternatives have been discussed and questions answered. Patient agrees to proceed with procedure. Chief complaint: GERD without esophagitis Narrative: Lamberto Wright is a 57 year old male who had developed mid and upper abdominal pain and was vomiting for almost 2 full days.? He went to the emergency room where he was evaluated.? CT scan was done that showed nothing except a small hiatal hernia.? He was given intravenous pantoprazole he states that he felt better very quickly.? Prior to that, he had been trying to wean himself off pantoprazole by taking every other day and he recalls now he had skipped it for about 3 days around the time the symptoms developed. Review of Systems Review of Systems: All systems reviewed & are unremarkable except as noted in HPI and below PMFSH Past Medical History Medical History Abdominal pain Allergies Arthritis of left acromioclavicular joint Diverticulitis 07/2020 Dyslipidemia History of tongue cancer Left shoulder pain Pain associated with defecation Prediabetes Skin lesion of chest wall Tear of left rotator cuff Surgical History Surgical History Cancer of anterior two-thirds of tongue, ventral surface 2017 - s/p Excision 2022? H/O inguinal hernia repair (~2004) left History of appendectomy (~1975) S/P laparoscopic-assisted sigmoidectomy (~07/09/20) 07/09/2020 - secondary to diverticulitis Family History Family History Father Hypertension Mother Diverticular disease Diabetes mellitus Grandparent Cancer Sibling Diabetes mellitus Heart disease Social History Social History Social History: Lamberto is . 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 Smoking status: Never smoker Second hand tobacco smoke exposure: No Alcohol intake: current Drinks per week: 12 Alcohol use details: occassional Substance use: never Substance use type: does not use Other substance usage details: occasional Lack of Transportation: No Lack of Food: Never True Current Housing: I Have Housing Concerned About Future Housing: No Difficulty Paying Gas/Electric Bills: No Difficulty Paying for Meds: No Currently Unemployed: No Education: High School Diploma/GED Difficulty w/ Childcare or Family Care: No Living arrangements: with family Additional occupation/education comments: [employer] Gender identity (if verbalized by the patient): Male Sexual Orientation (if Verbalized by the Patient): Straight or Heterosexual Spiritual care concerns: No Meds Home Medications and Allergies Home Medications Medication Instructions Recorded Confirmed Type atorvastatin 40 mg tablet 40 mg PO HS #90 tabs 03/20/23 08/17/23 Rx pantoprazole 20 mg tablet,delayed 20 mg PO QAM #90 tabs 06/26/23 08/17/23 Rx release Allergies Allergy/AdvReac Type Severity Reaction Status Date / Time bee venom protein (honey bee) Allergy Intermediate Swelling Verified 08/17/23 09:24 mold Allergy Intermediate Sneezing Verified 08/17/23 09:24 cat dander Allergy Mild Sneezing Verified 08/17/23 09:24 Exam Const: General: alert Orientation/consciousness: patient oriented x3 Resp: Auscultation: clear to auscultation bilaterally Cardio: Rhythm: regular rhythm GI: GI Palp: Yes Soft to palpation and No Tenderness to palpation present (GI) Neuro: General: patient oriented x3 Assessment and Plan Assessment and plan (1) GERD (gastroesophageal reflux disease): Code(s): K21.9 - Gastro-esophageal reflux disease without esophagitis Status: Acute Assessment and Plan: EGD with possible biopsy or dilatation o
[2023-08-17 09:28] VITALS: BP 130/83; PULSE 76; RESP 18; O2SAT 100; BMI 28.0
[2023-08-17] MEDS: LACTATED RINGERS 1,000 ML 150 ML IV CONT (09:39)
[2023-08-17 10:08] VITALS: BP 176/100; PULSE 60; RESP 18; O2SAT 100
[2023-08-17 10:18] VITALS: BP 165/102; PULSE 63; RESP 18; O2SAT 100
[2023-08-17 10:28] VITALS: BP 173/111; PULSE 63; RESP 18; O2SAT 100
--- NOTE | 2023-08-17 11:49 | WPDANESPN ---
Anes - Prog Note Post-Op Date/Time: 08/17/23 11:49 Cardiovascular status: normal Respiratory status: normal Airway patency: baseline Mental status: baseline Post-Op hydration status: normal Vital Signs: Last Vital Signs Pulse 63 08/17/23 10:28 Resp 18 08/17/23 10:28 BP 173/111 H 08/17/23 10:28 Pulse Ox 100 08/17/23 10:28 O2 Del Method Room Air 08/17/23 10:28 Pain Score (VAS): 0 I/O: Intake & Output 08/16/23 08/17/23 08/17/23 23:59 07:59 15:59 Intake Total 400 Balance 400 Post-procedural complaints: none Patient Feedback: Patient satisfied with anesthetic care. Other Findings: Patient vital signs back to baseline. Patient denies nausea and vomiting. Patient's pain under control. Patient OK for discharge.
== END 2023-08-17 10:40 | disposition home or self-care (01) ==
PROVIDERS: PCP Family Medicine; Visit Provider Internal Medicine Gastroenterology
PROC: 0DJ08ZZ Inspection of Upper Intestinal Tract, Via Natural or Artificial Opening Endoscopic (ICD-10-PCS; CPT 43235; principal; 2023-08-17 10:30)
DX: K21.9 Gastro-esophageal reflux disease without esophagitis (principal); K44.9 Diaphragmatic hernia without obstruction or gangrene
CPT/HCPCS: 43239

== ENCOUNTER 2023-09-14 07:55 | Outpatient (CLI) | payer OTHER, SELFPAY ==
[2023-09-14 12:01] LABS: Basophils Absolute Auto 0.1 K/mm3 (0.0-0.1); Basophils Percent Auto 0.8 % (0.2-1.2); Eosinophils Absolute Auto 0.3 K/mm3 (0-0.3); Eosinophils Percent Auto 3.4 % (0-4.4); Hematocrit 46.8 % (42.0-52.0); Hemoglobin 15.4 g/dL (14.0-18.0); Immature Granulocyte Absolute 0.03 K/mm3 (0.00-0.031); Immature Granulocyte Percent A 0.3 % (0-0.5); Lymphocytes Absolute Auto 2.11 K/mm3 (0.9-3.2); Mean Corpuscular HGB Conc 32.9 g/dl (32-36); Mean Corpuscular Hemoglobin 30.7 pg (26-34); Mean Corpuscular Volume 93.4 fl (80-100); Mean Platelet Volume 10.4 fl (7.4-10.4); Monocytes Absolute Auto 0.6 K/mm3 (0.1-0.6); Monocytes Percent Auto 6.3 % (2.6-8.5); Neutrophils Absolute Auto 5.7 K/mm3 (1.3-6.7); Neutrophils Percent Auto 65.2 % (45.5-73.1); Platelet Count Result 294 k/mm3 (150-375); Red Blood Count 5.01 M/mm3 (4.6-6.20); Red Cell Distribution Width 12.9 % (11.5-14.5); White Blood Count 8.8 K/mm3 (4.5-10.0)
[2023-09-14 12:24] LABS: LDL Cholesterol Direct 88 mg/dL
[2023-09-14 12:27] LABS: Alanine Aminotransferase 34 U/L (6-50); Albumin Level 4.6 g/dL (3.5-5.1); Alkaline Phosphatase 111 U/L (38-126); Anion Gap 8 mmol/L (8-16); Aspartate Amino Transferase 56 U/L (17-59); Bilirubin,Total 1.6 mg/dL (0.2-1.3); Blood Urea Nitrogen 13 mg/dL (9-20); Calcium 9.5 mg/dL (8.4-10.2); Carbon Dioxide 28 mmol/L (22-30); Chloride 101 mmol/L (98-107); Cholesterol 160 mg/dL (0-200); Estimated Glomerular Filt Rate > 60; Glucose 96 mg/dL (65-110); HDL Direct 40 mg/dL; Potassium 4.3 mmol/L (3.4-5.0); Sodium 137 mmol/L (137-145); Triglycerides 78 mg/dL (<150)
[2023-09-14 12:41] LABS: Hemoglobin A1C 5.6 % (<5.7)
[2023-09-14 12:44] LABS: Prostate Specific Antigen 1.7 ng/mL (< OR = 4.0)
[2023-09-14 16:17] LABS: Vitamin D 25 Hydroxy 29.8 ng/mL
== END 2023-09-14 07:56 | disposition home or self-care (01) ==
LOC: ANHGOSHLAB 07:56
PROVIDERS: PCP Family Medicine; Visit Provider Nurse Practitioner Family
DX: Z00.00 Encounter for general adult medical examination without abnormal findings (principal); I10 Essential (primary) hypertension; Z12.5 Encounter for screening for malignant neoplasm of prostate; Z13.220 Encounter for screening for lipoid disorders; Z13.1 Encounter for screening for diabetes mellitus; Z13.29 Encounter for screening for other suspected endocrine disorder; Z13.21 Encounter for screening for nutritional disorder
CPT/HCPCS: 36415; 80053; 80061; 82306; 83036; 84153; 84443; 85025; G0103

== ENCOUNTER 2024-07-19 08:38 | Outpatient (CLI) | payer OTHER, SELFPAY ==
[2024-07-19 16:32] LABS: Basophils Absolute Auto 0.1 K/mm3 (0.0-0.1); Basophils Percent Auto 1.3 % (0.2-1.2); Eosinophils Absolute Auto 0.3 K/mm3 (0-0.3); Eosinophils Percent Auto 3.9 % (0-4.4); Hematocrit 47.4 % (42.0-52.0); Hemoglobin 15.4 g/dL (14.0-18.0); Immature Granulocyte Absolute 0.02 K/mm3 (0.00-0.031); Immature Granulocyte Percent A 0.3 % (0-0.5); Lymphocytes Absolute Auto 1.81 K/mm3 (0.9-3.2); Lymphocytes Percent Auto 25.3 % (18.3-44.2); Mean Corpuscular HGB Conc 32.5 g/dl (32-36); Mean Corpuscular Hemoglobin 31.7 pg (26-34); Mean Corpuscular Volume 97.5 fl (80-100); Mean Platelet Volume 10.5 fl (7.4-10.4); Monocytes Absolute Auto 0.5 K/mm3 (0.1-0.6); Neutrophils Absolute Auto 4.5 K/mm3 (1.3-6.7); Neutrophils Percent Auto 62.2 % (45.5-73.1); Platelet Count Result 281 k/mm3 (150-375); Red Blood Count 4.86 M/mm3 (4.6-6.20); White Blood Count 7.2 K/mm3 (4.5-10.0)
[2024-07-19 16:58] LABS: Vitamin D 25 Hydroxy 48.7 ng/mL
[2024-07-19 17:01] LABS: Alanine Aminotransferase 41 U/L (6-50); Albumin Level 4.6 g/dL (3.5-5.1); Alkaline Phosphatase 88 U/L (38-126); Anion Gap 6 mmol/L (4-12); Aspartate Amino Transferase 40 U/L (17-59); Bilirubin,Total 0.8 mg/dL (0.2-1.3); Blood Urea Nitrogen 13 mg/dL (9-20); Calcium 9.2 mg/dL (8.4-10.2); Carbon Dioxide 30 mmol/L (22-30); Chloride 101 mmol/L (98-107); Cholesterol 203 mg/dL (0-200); Estimated Glomerular Filt Rate > 60; Glucose 98 mg/dL (65-110); HDL Direct 60 mg/dL; Potassium 4.3 mmol/L (3.4-5.0); Sodium 137 mmol/L (137-145); Triglycerides 86 mg/dL (<150)
[2024-07-19 17:12] LABS: LDL Cholesterol Direct 111 mg/dL
[2024-07-19 17:39] LABS: Hemoglobin A1C 5.9 % (<5.7)
[2024-07-19 17:53] LABS: Prostate Specific Antigen 1.8 ng/mL (< OR = 4.0)
== END 2024-07-19 08:39 | disposition home or self-care (01) ==
LOC: ANHGOSHLAB 08:39
PROVIDERS: PCP Family Medicine; Visit Provider Family Medicine
DX: Z00.00 Encounter for general adult medical examination without abnormal findings (principal); Z12.5 Encounter for screening for malignant neoplasm of prostate; E55.9 Vitamin D deficiency, unspecified; R73.03 Prediabetes; E78.5 Hyperlipidemia, unspecified; I10 Essential (primary) hypertension; E53.8 Deficiency of other specified B group vitamins
CPT/HCPCS: 36415; 80053; 80061; 82306; 82607; 83036; 84153; 84443; 85025; G0103

== ENCOUNTER 2024-12-03 15:16 | Outpatient (CLI) | payer OTHER, SELFPAY ==
--- NOTE | 2024-12-03 15:30 | ECG_ITS ---
Test Date: 2024-12-03 15:36:18 Measurements Intervals [place] Rate: 69 P: 60 MS: 179 QRS: 7 QRSD: 101 T: 27 QT: 369 QTc: 397 Interpretive Statements SINUS RHYTHM INCOMPLETE RIGHT BUNDLE BRANCH BLOCK BASELINE ARTIFACT- I, II, III, AVR, AVL, AVF, V1-V3 BORDERLINE ECG No previous ECG available for comparison Electronically Signed On 12-03-2024 16:36:30 REPORTS ANALYST by Chacho Sosa D.O.
--- OUTSIDE RECORDS SUMMARY | 2024-12-03 17:45 | XMS_ITS | Referral Summary ---
Author Organization [facility] Address [address] [place] [address] Care Team Providers Care Shaving Machine Operator Name Role Phone Dipti Bauer MD Primary Care Provider Source Comments [facility],non-owned Affiliates and Associated Physician Practices is amultiple site organization consisting of ambulatory clinics and hospital sitesin [place], [place], [place] and [place]. This disclosure is being madepursuant to the Care Everywhere program and may not contain all information available regarding this patient. Last updated 18.[facility] Allergies No known active allergies Medications * Be aware that medications may not be up to date on this document. Alwaysverify current medications with the patient. Medication Sig Dispensed Refills Start Date End Date Status atorvastatin (LIPITOR) 20 MG tablet Take 1 (one) tablet by mouth at bedtime 02/27/2018 Active pantoprazole EC (PROTONIX) 40 MG tablet Take 20 mg by mouth once daily 02/27/2018 Active acetaminophen (Tylenol) 325 MG tablet Take 2 (two) tablets by mouth every 6 hours as needed for Fever or Pain Maximum allowable Acetaminophen amount = 4 Grams (4000 mg) / 24 hours. 100 tablet 12/01/2022 Active Additional Information Patient not taking.Reported on 12/16/2022 ibuprofen (Motrin) 200 MG tablet Take 1 (one) tablet to 2 (two) tablets by mouth every 6 hours as needed for Pain 100 tablet 12/01/2022 Active oxyCODONE, immediate release, (Roxicodone) 5 MG tabletIndications :Tongue cancer (HCC) Take 0.5 (one-half) tablet to 1 (one) tablet by mouth every 6 hours as needed for Pain 12 tablet 12/01/2022 Active Additional Information Patient not taking.Reported on 12/16/2022 atorvastatin (Lipitor) 40 MG tablet Take 1 (one) tablet by mouth once daily 03/20/2023 Active pantoprazole EC (Protonix) 20 MG tablet Take 1 (one) tablet by mouth as directed 03/20/2023 Active Active Problems Problem Noted Date Diagnosed Date Tongue cancer 05/23/2018 Social History Tobacco Use Types Packs/Day Years Used Date Smoking Tobacco: Never Smokeless Tobacco: Never Tobacco Cessation:Counseling Given: Not Answered Alcohol Use Standard Drinks/Week Comments Yes 62 (1 standard drink = 0.6 oz pu re alcohol) weekend beer drinking 4-6 AUDIT-C Answer Date Recorded Q1: How often do you have a drink containing alc ohol? 2-4 times a month 12/01/2022 Q2: How many drinks containi ng alcohol do you have on a typical day when you are drinking? 3 or 4 12/01/2022 Q3: How often do you have si x or more drinks on one occasion? Less than monthly 12/01/2022 Sex and Gender Information Value Date Recorded Sex Assigned at Not on file Gender Identity Not on file Sexual Orientation Not on file Last Filed Vital Signs Vital Sign Reading Time Taken Comments Blood Pressure 181/106 03/22/2023 2:33 PM CDT Pulse 73 03/22/2023 2:33 PM CDT Temperature 36.6 C (97.9 F) 12/01/2022 3:41 PM [employer] Respiratory Rate 11 12/01/2022 4:30 PM [employer] Oxygen Saturation 95% 12/01/2022 4:30 PM [employer] Inhaled Oxygen Concentration - - Weight 88.5 kg (195 lb) 03/22/2023 2:33 PM CDT Height 177.8 cm (5' 10 ) 03/22/2023 2:33 PM CDT Body Mass Index 27.98 03/22/2023 2:33 PM CDT Plan of Treatment Not on file Procedures Procedure Name Priority Date/Time Associated Diagnosis Comments BASIC METABOLIC PANEL (CALCIUM TOTAL) Routine 05/31/2018 1:27 PM CDT Tongue cancer (HCC) from Last 3 Months or Most Recently Relevant to Health Maintenance Results * BASIC METABOLIC PANEL (CALCIUM TOTAL) (05/31/2018 1:27 PM CDT) BUN 9 7 - 26 mg/dL 05/31/2018 1:58 PM [facility] Creatinine 0.8 0.6 - 1.2 mg/dL 05/31/2018 1:58 PM [facility] Sodium 138 136 - 145 mmol/L 05/31/2018 1:58 PM [facility] Potassium 4.0 3.5 - 4.5 mmol/L 05/31/2018 1:58 PM [facility] Chloride 101 98 - 107 mmol/L 05/31/2018 1:58 PM [facility] CO2 26 22 - 29 mmol/L 05/31/2018 1:58 PM [facility] Glucose 103 70 - 115 mg/dL 05/31/2018 1:58 PM [facility] Calcium 9.7 8.4 - 10.2 mg/dL 05/31/2018 1:58 PM [facility] Anion Gap 15 8 - 18 05/31/2018 1:58 PM [facility] BUN/Creatinine Ratio 11 7 - 23 05/31/2018 1:58 PM [facility] Osmolality Calculated 285 270 - 300 mOsm/kg 05/31/2018 1:58 PM [facility] eGFR >60 >60 mL/min/1.7 3 m2 05/31/2018 1:58 PM [facility] Blood BLOOD SPECIMEN / Unknown Venipuncture / Unknown 05/31/2018 1:27 PM CDT 05/31/2018 1:32 PM T Irwin Rodriguez MD LAB - CHEMISTRY RADHA BOYKIN [facility] Organization Address City/State/ZIP Co de Phone Number [facility] [address] [place] [address] from Last 3 Months or Most Recently Relevant to Health Maintenance Advance Directives * Full Code (Latest Code Status on File) Date Activated Date Inactivated Comments 05/31/2018 12:23 PM 05/31/2018 8:01 PM Care Teams Shaving Machine Operator Relationship Specialty Start Date End Date Dipti Bauer MD [address] [place] [address] PCP - General 05/23/18
--- OUTSIDE RECORDS SUMMARY | 2024-12-03 17:45 | XMS_ITS | Clinical Summary ---
Author Organization [facility] Address [address] [place] [id number] Care Team Providers Care Book Binder Name Role Phone Unavailable Primary Care Provider Unavailabl e Social History Tobacco Use Types Packs/Day Years Used Date Smoking Tobacco: Never Assessed Sex and Gender Information Value Date Recorded Sex Assigned at Not on file Legal Sex Male 6:16 PM CDT Gender Identity Not on file Sexual Orientation Not on file Plan of Treatment Health Maintenance Due Date Last Done Comments Colorectal Cancer Screening Colonoscopy (10 Years) 1963 Annual Physical 1966 Hepatitis C 1981 DTaP, Tdap and Td Vaccines ( 1 - Tdap) 1982 Zoster Vaccines (1 of 2) 2013 COVID-19 Vaccine ( - 2023-2 5 season) 2024 Influenza Adult (#1) 2024 RSV Immunization or 60+ Years (1 - 1-dose 75+ series) 2038 Meningococcal B Vaccine Aged Out No l onger eligible based on patient's age to complete this topic Meningococcal Vaccine Aged Out No cosme shadi eligible based on patient's age to complete this topic Pneumococcal Vaccine: Pediat rics (0 to 5 Years) and At-Risk Patients (6 to 64 Years) Aged Out No longer eligible b ased on patient's age to complete this topic RSV Immunizations Under 20 Months Aged Out No longer eligible based on patient's age to complete this topic
--- OUTSIDE RECORDS SUMMARY | 2024-12-03 17:45 | XMS_ITS | Clinical Summary ---
Author Organization [facility] Address [address] [place] [address] Care Team Providers Care Retail Assistant Manager Name Role Phone Dipti Bauer MD Primary Care Provider Source Comments [facility],non-owned Affiliates and Associated Physician Practices is amultiple site organization consisting of ambulatory clinics and hospital sitesin [place], [place], [place] and [place]. This disclosure is being madepursuant to the Care Everywhere program and may not contain all information available regarding this patient. Last updated 18.[facility] Allergies No known active allergies Medications * [...] Noted Date Diagnosed Date Tongue cancer 05/23/2018 Family History Medical History Relation Name Comments Hyperlipidemia Brother Hypertension Brother Hyperlipidemia Father Hypertension Father Diabetes - Type 2 Mother Relation Name Status Comments Brother Father Mother Social History Tobacco Use Types Packs/Day Years [...] 36.6 C (97.9 F) 12/01/2022 3:41 PM ADMINISTRATIVE HEARING OFFICER Respiratory Rate 11 12/01/2022 4:30 PM ADMINISTRATIVE HEARING OFFICER Oxygen Saturation 95% 12/01/2022 4:30 PM ADMINISTRATIVE HEARING OFFICER Inhaled Oxygen Concentration - - Weight 88.5 kg (195 lb) 03/22/2023 2:33 PM CDT Height 177.8 cm (5' 10 ) 03/22/2023 2:33 PM CDT Body Mass Index 27.98 03/22/2023 2:33 PM CDT Plan of Treatment Health Maintenance Due Date Last Done Comments COLOGUARD (AGES 45-75) - COL ON CA SCREENING 1965 COLON MONITORING 1963 COLONOSCOPY - COLON CA SCREENING 1963 CT COLONOGRAPHY - COLON CA SCREENING 1963 Colorectal Cancer Screening 1963 FIT - COLON CA SCREENING 1963 FLEX SIG - COLON CA SCREENING 1963 HIV SCREENING 1978 HEPATITIS C SCREENING 11/25/1981 DTAP/TDAP/TD VACCINES (1 - Tdap) 1982 PNEUMOCOCCAL VACCINE 50+ (1 of 1 - PCV) 2013 ZOSTER VACCINE (1 of 2) 2013 SCREENING FOR DIABETES 05/31/2021 05/31/2018 COVID-19 VACCINE (3 - 2023-2 5 season) 2024 02/08/2021, 01/18/2021 INFLUENZA VACCINE (#1) 2024 DEPRESSION SCREENING 10/09/2024 Respiratory Syncytial Virus (RSV) Vaccine Pt: or over 60 yrs (1 - 1-dose 75+ series) 2038 HEPATITIS B VACCINE Aged Out No longe r eligible based on patient's age to complete this topic HIB VACCINE Aged Out No longer eligi ble based on patient's age to complete this topic HPV VACCINE Aged Out No longer eligi ble based on patient's age to complete this topic MENINGOCOCCAL (Group B) VACCINE Aged Out No longer eligible b ased on patient's age to complete this topic MENINGOCOCCAL VACCINE Aged Out No cosme shadi eligible based on patient's age to complete this topic PNEUMOCOCCAL VACCINE Aged Out No long er eligible based on patient's age to complete this topic Procedures Procedure Name Priority Date/Time Associated Diagnosis Comments BASIC METABOLIC PANEL (CALCIUM TOTAL) Routine 05/31/2018 1:27 PM CDT Tongue cancer (HCC) from Last 3 Months or Most Recently Relevant to Health Maintenance Results * BASIC METABOLIC PANEL (CALCIUM TOTAL) (05/31/2018 1:27 PM CDT) BUN 9 7 - 26 mg/dL 05/31/2018 1:58 PM CDT [facility] Creatinine 0.8 0.6 - 1.2 mg/dL 05/31/2018 1:58 PM CDT [facility] Sodium 138 136 - 145 mmol/L 05/31/2018 1:58 PM CDT [facility] Potassium 4.0 3.5 - 4.5 mmol/L 05/31/2018 1:58 PM [facility] Chloride 101 98 - 107 mmol/L 05/31/2018 1:58 PM [facility] CO2 26 22 - 29 mmol/L 05/31/2018 1:58 PM [facility] Glucose 103 70 - 115 mg/dL 05/31/2018 1:58 PM [facility] Calcium 9.7 8.4 - 10.2 mg/dL 05/31/2018 1:58 PM [facility] Anion Gap 15 8 - 18 05/31/2018 1:58 PM [facility] BUN/Creatinine Ratio 11 7 - 23 05/31/2018 1:58 PM [facility] Osmolality Calculated 285 270 - 300 mOsm/kg 05/31/2018 1:58 PM [facility] eGFR >60 >60 mL/min/1.7 3 m2 05/31/2018 1:58 PM [facility] Blood BLOOD SPECIMEN / Unknown Venipuncture / Unknown 05/31/2018 1:27 PM CDT 05/31/2018 1:32 PM CDT Irwin Rodriguez MD LAB - CHEMISTRY RADHA BOYKIN [facility] Organization Address City/State/ZIP Co de Phone Number [facility] [address] [place] [address] from Last 3 Months or Most Recently Relevant to Health Maintenance Advance Directives * Full Code (Latest Code Status on File) Date Activated Date Inactivated Comments 05/31/2018 12:23 PM 05/31/2018 8:01 PM Care Teams Retail Assistant Manager Relationship Specialty Start Date End Date Dipti Bauer MD [address] [place] [address] PCP - General 05/23/18
--- OUTSIDE RECORDS SUMMARY | 2024-12-03 17:45 | XMS_ITS ---
Author Organization [facility] Address [address] [place] [address] Care Team Providers Care Device Repair Technician Name Role Phone Dipti Bauer MD Primary Care Provider Active Problems Problem Noted Date Diagnosed Date Tongue cancer 05/23/2018 Current Oncology Plans No current plan information found. Past Plans No past plan information found. Radiation Treatments * No radiation treatments are documented for this patient in [facility]. Treatments may have been administered in another system. Treatment Summaries Tongue cancer (HCC)* Images from the original note were not included. 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 Difficulty swallowing ??? Difficulty eating ??? Fatigue Cancer Surveillance Schedule You will be seen more frequently the earlier you are in your surveillance plan. Every patient will have an individualized follow up schedule based on recommendations from national cancer organizations and your specific post- treatment course. Clinical visit with Surgeon 1ST year every 1-3 months 2nd year every 3-6 months 3rd-5th year every 3-12 months after 5th year at least annually Reasons to call: ??? New lesions ??? New neck masses ??? New ear pain ??? New problems with voice or swallowing ??? Unintended weight loss ??? Cough that does not go away ??? New feelings of sadness or being overwhelmed Late Effects to monitor ??? Dental health Your follow up schedule is listed below Future Appointments Date Time Provider Department Center 11/28/2018 9:45 AM Martinez Valentine MD [facility] Contact Information Dr. Martinez Valentine: Nurse: Katie Forbes: Nurse Practitioner: Tanisha Hurley: Radiation Oncologist N/A Medical Oncologist N/A Social Work Accounting Software Specialist Dr. Susana Olson Dietitian Pastoral Care [facility] Hospital Scheduling Primary Care Provider Dipti Bauer MD [phone] Recommended cancer screenings Colonoscopy: every 10 years beginning at age 50 unless directed otherwise. If you have not had a colonoscopy within the past ten years, please contact your primary care provider to dsicuss Prostate Specific Antigen (PSA): Initial discussion with PCP about screening options at age 50. Further testing should be based on result and risk factors General Wellness Screening Blood Pressure: annually Weight: annually Lipids: Men age >= 35+ should be screened for lipid(cholesterol) disorder. Women age >= 45 should be screened for lipid(cholesterol) disorder Diabetes: Discuss with your primary care provider especially if you are overweight or have high blood pressure Bone Density: Women age >= 65 should be screened for osteoporosis Vision: No routine screening recommended. If you think your vision has changed, get a vision examination. Hearing: No routine screening recommended. If you think your hearing has changed, get a hearing examination. Dental: Dental examinations every 6 months are recommended. If you have had radiation, you should discuss fluoride treatments with your dentist. Staying Healthy Immunizations: ??? Annual flu shot ??? Tetanus booster every 10 years ??? Diptheria booster if you haven???t had one ??? Shingles vaccine at age 60 if you have had chicken pox ??? Pneumonia vaccine at ages between 19-64 if chronically ill; at age 65 for all people Sun Exposure: Wear sunscreen daily. Apply liberally when outside and wear protective clothing. Nutrition: A healthy weight and a balanced diet will Tobacco: Avoid all tobacco and vapor products. If you have not been able to quit, ask for help. Alcohol: Moderate alcohol intake is acceptable. If you think you drink too much, we can help you find resources to help you quit. Drugs: Illegal drugs should be avoided. If you use any of these substances, ask for help with stopping. Activity: Staying active helps your heart, your lungs, and your immune system. Take every opportunity to walk a few extra steps. Important Resources [facility] Bh[place] Cancer Society cancer.org [place] Head and Neck Society headandneckcancer.org Association of Cancer Online Resources acor.org Caring Bridge caringbridge.org International Association of Laryngectomees theEngineered Carbon Solutions.com/ial The Oral Cancer Foundation oralcancerfoundation.org Support for People with Oral and Head and Neck Cancer spohnc.org Head and Neck Cancer Beverly headandneck.org CancerCare cancercare.org LiveStrong Foundation livestrong.org National Cancer [place] Common cancer.gov Cancer Survivors Network csn.cancer.org National Coalition for Cancer Survivorship canceradvocacy.org [place] Society of Clinical Oncologists cancer.net Cancer Support Community of [facility] www.cancersupportstl.org Radiation Therapy Questions/Answers www.rtanswers.org
--- OUTSIDE RECORDS SUMMARY | 2024-12-03 17:45 | XMS_ITS | Patient Health Summary ---
Author Organization [facility] [employer] Address [address] [place] [address] Care Team Providers Care Computer Forensic Examiner Name Role Phone Dipti Bauer MD Primary Care Provider Note from [facility],non-owned Affiliates and Associated Physician Practices is amultiple site organization consisting of ambulatory clinics and hospital sitesin [place], [place], [place] and [place]. This disclosure is being madepursuant to the Care Everywhere program and may not contain all information available regarding this patient. Last updated 18.[facility] Allergies No known active allergies Medications * Be aware that medications may not be up to date on this document. Alwaysverify current medications with the patient. * atorvastatin (LIPITOR) 20 MG tablet(Started 02/27/2018) Take 1 (one) tablet by mouth at bedtime * pantoprazole EC (PROTONIX) 40 MG tablet(Started 02/27/2018) Take 20 mg by mouth once daily * acetaminophen (Tylenol) 325 MG tablet(Started 12/01/2022) Take 2 (two) tablets by mouth every 6 hours as needed for Fever or Pain Maximum allowable Acetaminophen amount = 4 Grams (4000 mg) / 24 hours. 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 Respiratory Rate 11 12/01/2022 4:30 PM [employer]ER [employer] BUMPER Oxygen Saturation 95% 12/01/2022 4:30 PM B[employer]ER [employer] BUMPER Inhaled Oxygen Concentration - - Weight 88.5 kg (195 lb) 03/22/2023 2:33 PM CDT Height 177.8 cm (5' 10 ) 03/22/2023 2:33 PM CDT Body Mass Index 27.98 03/22/2023 2:33 PM CDT Procedures * PATHOLOGY TISSUE(Performed 12/01/2022) Performed for Tongue cancer (HCC) * BIOPSY/EXCISION LESION MOUTH/TONGUE(Performed 12/01/2022) Performed for Tongue cancer (HCC) * ENDOTRACHEAL TUBE NOTE(Performed 12/01/2022) * POTASSIUM WHOLE BLD(Performed 12/01/2022) Performed for Pre-op evaluation * WI BIOPSY TONGUE,ANTER 2/3(Performed 10/28/2022) Performed for Tongue cancer (HCC) * PATHOLOGY TISSUE(Performed 10/28/2022) Performed for Tongue cancer (HCC) * PATHOLOGY/CYTOLOGY REPORT ORDER(Performed 06/01/2018) * PATHOLOGY TISSUE(Performed 05/31/2018) Performed for Tongue cancer (HCC) * GLOSSECTOMY(Performed 05/31/2018) Performed for Tongue cancer (HCC) * ENDOTRACHEAL TUBE NOTE(Performed 05/31/2018) * TYPE + SCREEN PANEL(Performed 05/31/2018) * CBC W AUTO DIFFERENTIAL(Performed 05/31/2018) Performed for Tongue cancer (HCC) * BASIC METABOLIC PANEL (CALCIUM TOTAL)(Performed 05/31/2018) Performed for Tongue cancer (HCC) Results * PATHOLOGY TISSUE (12/01/2022 2:07 PM BURNISHER AND BUMPER) Only the most recent of3 resultswithin the time period is included. Case Report Surgical Pathology Report Case: [id number] Authorizing Provider: Martinez Valentine MD Collected: 12/01/2022 02:07 PM Ordering Location: [facility] OP Received: 12/01/2022 03:27 PM Pathologist: Ben Hutton MD Specimen: Tongue, left tongue lesion- stitch anterior 12:33 PM [facility] Final Diagnosis Tongue, left, biopsy (FSA/A): - High grade dysplasia/carcinoma in situ - Completely excised. - Closest margin 0.3 cm from blue margin (anterior margin) 12:33 PM [facility] Microscopic Description and Comment Microscopic examination substantiates the final diagnosis. The frozen section diagnosis is confirmed. 12:33 PM [facility] Clinical History The patient is a 57-year-old man with a history of dysplasia on the left side of the tongue. 12:33 PM [facility] Intraoperative Consultation Received as left tongue lesion is a 1.2 x 1.0 x 0.8 cm mucosal excision oriented with a suture @anterior. Anterior: Blue, posterior: Green, deep: Black ES as FSA1: Anterior half with tip en face FSA2: Posterior half with tip en face Intraoperative diagnosis: FSA1-2, left tongue lesion: -Negative for invasive carcinoma -Negative for high-grade dysplasia by Therese Wilder DO 3 12:33 PM [facility] Gross Description The requisition and specimen(s) are identified with the patient's name, Lamberto Wright. Received in formalin after frozen section, specimen A , is as described in intraoperative consultation. The remnant of FSA1 is submitted in toto in cassette A1 and the remnant of FSA2 is submitted in toto in cassette A2. MP 3 12:33 PM [facility] Disclaimer The performance characteristics of all immunohistochemical and indirect immunofluorescence stains (if any) cited in this report were determined by the Histopathology Laboratory of [facility]. Some of these tests were developed by our own laboratory and have not been cleared or approved by the US Food and Drug Administration. The FDA does not require this test to go through premarket FDA review. These tests are used for clinical purposes. They should not be regarded as investigational or for research. This laboratory is certified under the Clinical Laboratory Improvement Amendments (CLIA) as qualified to perform high complexity clinical laboratory testing. This case has been personally reviewed and interpreted by the attending (teaching) pathologist. 3 12:33 PM [facility] Embedded Images 3 12:33 PM [facility] Biopsy, Excision SPECIMEN FROM TONGUE / Unknown 12/01/2022 2:07 PM [employer]ER [employer] BUMPER 12/01/2022 3:27 PM [facility] [employer] BUMPER Comment:Pre-op diagnosis: TONGUE CANCER Martinez Valentine MD LAB - PATHOLOGY/CYTO LOGY ORDERABLES Performing Organization Address [facility] Co nm Phone Number [facility] [address] [phone] * ETT LINE PERFORMABLE (12/01/2022 2:03 PM [employer]ER AND BUMPER) Narrative Heena Zamudio APRN-CRNA - 12/01/2022 2:03 PM [employer]ER AND BUMPER Heena Zamudio APRN-CRNA 12/01/2022 2:03 PM Endotracheal Tube Placement: Intubation Event Date/Time: 12/01/2022 1:53 PM Procedure: intubation ([id number]). Procedure Section: Induction: standard IV Patient Position: sniffing Mask Ventilation: easy. Blade Type: Saldivar Blade Size: 2 Laryngoscopy View: grade 1 (full cords) Intubation Adjuncts: stylet Tube: endotracheal tube Placement: oral Tube type: cuff - inflated Measured From: teeth Cuff Inflated With: air Number of Attempts: 1. Placement Verified By: direct visualization, bilateral breath sounds, chest auscultation and CO2 monitor Tube secured with: adhesive tape and ETT king. Dentition unchanged? Yes Difficult Airway? No. Procedure Start Time: 12/01/2022 1:53 PM. Staff Section Anesthesia Provider: Heena Zamudio APRN-CHEMICAL RESEARCH ENGINEER, Performed the procedure Provider #1: Yessica Lopez MD. Yessica Lopez MD GENERAL ANESTHESIA ORDERABLES * POTASSIUM WHOLE BLD (12/01/2022 10:33 AM B[employer]ER [employer] BUMPER) Potassium Whole Blood 4.1 3.5 - 5.5 mmol/L 12/01/2022 10:48 AM [facility]MPER [facility] Blood WHOLE BLOOD SPECIMEN / Unknown Venipuncture / Unknown 12/01/2022 10:33 AM [facility] [employer] BUMP[facility] 12/01/2022 10:46 AM [facility] [employer] BUMPER Rosa Figueroa Last [facility] ORDERABLES [facility] [address] [place] [phone], [facility] [phone] * WI BIOPSY TONGUE,ANTER / (10/28/2022 3:18 PM B[employer]ER AND BUMPER) Narrative Martinez Valentine MD - 10/28/2022 3:18 PM B[employer]ER AND BUMPER Martinez Valentine MD 10/31/2022 8:09 AM After obtaining informed consent 1% lidocaine with epinephrine was injected into the left tongue a 4mm punch biopsy was used to obtain 2 biopsy of lesions on the left side of the tongue. These were grasped and removed using forceps and scissors. 4-0 chromic interrupted sutures were then used to close the wounds. He tolerated the procedure well with minimal bleeding. I performed the entirety of the procedure. Martinez Valentine MD Martinez Valentine MD PROCEDURE/MINOR SURG ICAL ORDERABLES * PATHOLOGY/CYTOLOGY REPORT ORDER (06/01/2018 4:39 PM CDT) Narrative 06/01/2018 4:39 PM CDT Ordered by an unspecified provider. Scanned Document LAB - PATHOLOGY/CYTO LOGY ORDERABLES * TYPE + SCREEN PANEL (05/31/2018 1:27 PM CDT) Antibody Screen NEG 8 2:15 PM CDT [facility] ABO Rh A POS 05/31/2018 2:15 PM CDT [facility] Blood Bank BLOOD SPECIMEN / Unknown Venipuncture / Unknown 05/31/2018 1:27 PM CDT 05/31/2018 1:36 PM CDT Irwin Rodriguez MD LAB - BLOOD BANK ORD ERABLES Performing Organization Address City/State/[facility] Co de Phone Number [facility] [address] * (ABNORMAL) CBC W AUTO DIFFERENTIAL (05/31/2018 1:27 PM CDT) Pathologist [facility] WBC 8.7 3.5 - 10.5 10 3/uL 05/31/2018 1:38 PM T [facility] RBC 4.86 4.30 - 5.70 10 6/uL 05/31/2018 1:38 PM [facility] Hemoglobin 15.2 13.5 - 17.5 g/dL 05/31/2018 1:38 PM [facility] Hematocrit 44.4 39.0 - 50.0 % 05/31/2018 1:38 PM [facility] MCV 91.4 81.0 - 97.0 fL 05/31/2018 1:38 PM [facility] MCH 31.3 28.0 - 34.0 pg 05/31/2018 1:38 PM [facility] MCHC 34.2 32.0 - 36.0 g/dL 05/31/2018 1:38 PM [facility] Platelet Count 267 150 - 400 10 3/uL 05/31/2018 1:38 PM [facility] RDW-SD 43.7 36.0 - 50.0 fL 05/31/2018 1:38 PM [facility] RDW-CV 13.2 11.2 - 14.8 % 05/31/2018 1:38 PM [facility] MPV 10.3 9.3 - 12.8 fL 05/31/2018 1:38 PM [facility] Neutrophils % 72.4(H) 35.0 - 70.0 % 05/31/2018 1:38 PM [facility] Lymphocytes % 20.6 19.7 - 55.1 % 05/31/2018 1:38 PM [facility] Monocytes % 5.2 3.0 - 15.0 % 05/31/2018 1:38 PM [facility] Eosinophils % 1.2 0.0 - 6.0 % 05/31/2018 1:38 PM [facility] Basophil % 0.6 0.0 - 1.5 % 05/31/2018 1:38 PM [facility] Neutrophils Absolute 6.3 1.6 - 7.0 10 3/uL 05/31/2018 1:38 PM [facility] Lymphocyte Absolute 1.8 0.8 - 2.9 10 3/uL 05/31/2018 1:38 PM [facility] Monocytes Absolute 0.45 0.14 - 0.66 10 3/uL 05/31/2018 1:38 PM [facility] Eosinophils Absolute 0.10 0.00 - 0.22 10 3/uL 05/31/2018 1:38 PM [facility] Basophils Absolute 0.05 0.00 - 0.06 10 3/uL 05/31/2018 1:38 PM [facility] Immature Granulocytes % 0.2 0.0 - 1.0 % 05/31/2018 1:38 PM [facility] Blood BLOOD SPECIMEN / Unknown Venipuncture / Unknown 05/31/2018 1:27 PM CDT 05/31/2018 1:32 PM T Irwin Rodriguez MD LAB - HEMATOLOGY ORD ERABLES [facility] [address] [phone] * BASIC METABOLIC PANEL (CALCIUM TOTAL) (05/31/2018 1:27 PM CDT) BUN 9 7 - 26 mg/dL 05/31/2018 1:58 PM [facility] Creatinine 0.8 0.6 - 1.2 mg/dL 05/31/2018 1:58 PM [facility] Sodium 138 136 - 145 mmol/L 05/31/2018 1:58 PM [facility] Potassium 4.0 3.5 - 4.5 mmol/L 05/31/2018 1:58 PM [facility] Chloride 101 98 - 107 mmol/L 05/31/2018 1:58 PM [facility] CO2 26 22 - 29 mmol/L 05/31/2018 1:58 PM [facility] Glucose 103 70 - 115 mg/dL 05/31/2018 1:58 PM [facility] Calcium 9.7 8.4 - 10.2 mg/dL 05/31/2018 1:58 PM [facility] Anion Gap 15 8 - 18 05/31/2018 1:58 PM [facility] BUN/Creatinine Ratio 11 7 - 23 05/31/2018 1:58 PM [facility] Osmolality Calculated 285 270 - 300 mOsm/kg 05/31/2018 1:58 PM [facility] eGFR >60 >60 mL/min/1.7 3 m2 05/31/2018 1:58 PM [facility] Blood BLOOD SPECIMEN / Unknown Venipuncture / Unknown 05/31/2018 1:27 PM CDT 05/31/2018 1:32 PM T Irwin Rodriguez MD LAB - CHEMISTRY RADHA BOYKIN [facility] Organization Address City/State/ZIP Co de Phone Number [facility] [address] [phone] Care Teams Computer Forensic Examiner Relationship Specialty Start Date End Date Dipti Bauer MD [address] [place] [address] PCP - General 05/23/18
== END 2024-12-03 15:17 | disposition home or self-care (01) ==
PROVIDERS: PCP Family Medicine; Visit Provider Orthopaedic Surgery
DX: Z01.818 Encounter for other preprocedural examination (principal); M75.102 Unspecified rotator cuff tear or rupture of left shoulder, not specified as traumatic; I10 Essential (primary) hypertension; R94.31 Abnormal electrocardiogram [ECG] [EKG]
CPT/HCPCS: 87081; 93005

== ENCOUNTER 2024-12-05 10:56 | Outpatient (CLI) | payer OTHER, SELFPAY ==
[2024-12-05 15:04] LABS: Basophils Absolute Auto 0.1 K/mm3 (0.0-0.1); Basophils Percent Auto 0.7 % (0.2-1.2); Eosinophils Absolute Auto 0.3 K/mm3 (0-0.3); Eosinophils Percent Auto 4.4 % (0-4.4); Hematocrit 45.6 % (42.0-52.0); Hemoglobin 14.9 g/dL (14.0-18.0); Immature Granulocyte Absolute 0.02 K/mm3 (0.00-0.031); Immature Granulocyte Percent A 0.3 % (0-0.5); Lymphocytes Absolute Auto 1.88 K/mm3 (0.9-3.2); Mean Corpuscular HGB Conc 32.7 g/dl (32-36); Mean Corpuscular Hemoglobin 31.3 pg (26-34); Mean Corpuscular Volume 95.8 fl (80-100); Mean Platelet Volume 10.4 fl (7.4-10.4); Monocytes Absolute Auto 0.5 K/mm3 (0.1-0.6); Monocytes Percent Auto 6.8 % (2.6-8.5); Neutrophils Absolute Auto 4.5 K/mm3 (1.3-6.7); Neutrophils Percent Auto 61.8 % (45.5-73.1); Platelet Count Result 278 k/mm3 (150-375); Red Blood Count 4.76 M/mm3 (4.6-6.20); Red Cell Distribution Width 12.7 % (11.5-14.5); White Blood Count 7.2 K/mm3 (4.5-10.0)
[2024-12-05 16:27] LABS: Alanine Aminotransferase 28 U/L (6-50); Albumin Level 4.3 g/dL (3.5-5.1); Alkaline Phosphatase 75 U/L (38-126); Anion Gap 7 mmol/L (4-12); Aspartate Amino Transferase 31 U/L (17-59); Bilirubin,Total 1.3 mg/dL (0.2-1.3); Blood Urea Nitrogen 16 mg/dL (9-20); Calcium 9.2 mg/dL (8.4-10.2); Carbon Dioxide 29 mmol/L (22-30); Chloride 103 mmol/L (98-107); Estimated Glomerular Filt Rate > 60; Glucose 89 mg/dL (65-110); Potassium 4.3 mmol/L (3.4-5.0); Sodium 139 mmol/L (137-145)
[2024-12-05 21:16] LABS: Hemoglobin A1C 5.8 % (<5.7)
== END 2024-12-05 10:57 | disposition home or self-care (01) ==
LOC: ANHGOSHLAB 10:57
PROVIDERS: PCP Family Medicine; Visit Provider Family Medicine
DX: R73.03 Prediabetes (principal); I10 Essential (primary) hypertension; E78.5 Hyperlipidemia, unspecified
CPT/HCPCS: 36415; 80053; 83036; 85025

== ENCOUNTER 2024-12-10 00:30 | Day surgery (SDC) | payer OTHER, SELFPAY ==
[2024-11-29 13:05] VITALS: BMI 28.7
--- NOTE | 2024-11-29 13:12 | PC.NURSE ---
Report to the Outpatient Waiting Room, entrance under the green pavilion located off [facility], at time _0600_ on date _[id number]_. Planned Procedure Time: _0730_.? Time changes happen often and if your time is changed the preop area will call you the afternoon before. - You and your visitor will be asked to self-screen and do not enter if you have any COVID symptoms. Please call surgeon if you need to reschedule. - A mask is optional within the hospital at this time. Patients may have clear liquids (water, carbonated beverages, clear teas, apple juice) until 3 hours prior to surgery with a maximum of 20 ounces. - No food from midnight until time of surgery and no smoking, or chewing tobacco (or any form of nicotine). No chewing gum, candy or mints. Take only the following medications with a SIP of water on the morning of surgery: ____None___ DO NOT STOP ANY OF YOUR OTHER PRESCRIPTION MEDICATIONS PRIOR TO SURGERY EXCEPT THE FOLLOWING Hold all vitamins and supplements for 3 days per anesthesiologist. Medications to discontinue per physician Date to take last [phone]___ Please no make-up, nail andorran, hairspray, perfume, deodorant, or body powder the day of surgery.? No jewelry (including any body piercings) or valuables the day of surgery, leave them at home.? Please take a shower or bath the night before, or the morning of, surgery with an antibacterial soap.? Wear comfortable, loose fitting clothing.? - Jewelry must be removed prior to entering the operating room.? Rings and piercings that are not removed may be cut off. - The hospital will not accept responsibility for valuables.? - Please leave all valuables, including medications, at home the day of surgery. If you are going home after surgery, a licensed lyft driver must drive you home.? - NO public transportation without another adult if you receive anesthesia. - We recommend that an adult stay with you for 24 hours following discharge. - We also recommend that you do not drive, make important decision, drink alcoholic beverages, or take any drugs that were not prescribed by your health care provider for at least 24 hours after your discharge time. Follow any additional instructions given to you from your surgeon. Telephone instructions given to __Jim__and asked if any additional questions and then verbalized understanding. Patient advised to call surgeon office or pre surgery nurse liaison [phone] if any additional questions.
--- NOTE | 2024-12-09 11:50 | PM.IMHP ---
H&P: HPI History of Present Illness Date/Time: 12/09/24 11:50 Chief Complaint: Extensive partial-thickness tearing left rotator cuff tendon Narrative: 59-year-old male who presents today for arthroscopy his left shoulder with mini open rotator cuff repair proceed as indicated. He original injury to his shoulder was in June of 2022. 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 He had initial pain in the shoulder. He was seen shortly after the original injury MRI scan was done which showed interstitial tearing of the rotator cuff tendon an severe rotator cuff tendinopathy. There was no complete full-thickness tear shown. Patient was treated with physical therapy as well as cortisone injection. Over last 2 years patient has had continued symptoms in the shoulder. He had a repeat the MRI scan, it continues to show the interstitial tearing the infra and supraspinatus tendons. He has significant tendinopathy of the rotator cuff tendon as well. At this point patient is continued to have symptoms on a daily basis. Having difficulty doing his job at times. He has had extensive nonsurgical treatment for this and unfortunately has not improved. Arthroscopy with rotator cuff tendon repair was offered to it patient like to proceed. Review of Systems Review of Systems: All systems reviewed & are unremarkable except as noted in HPI and below PMFSH Past Medical History Medical History Essential (primary) hypertension Pain associated with defecation Abdominal pain Tear of left rotator cuff Arthritis of left acromioclavicular joint Allergies Left shoulder pain Skin lesion of chest wall Dyslipidemia History of tongue cancer Prediabetes Diverticulitis 07/2020 Surgical History Surgical History Cancer of anterior two-thirds of tongue, ventral surface 2017 - s/p Excision 2022? S/P laparoscopic-assisted sigmoidectomy (~07/09/20) 07/09/2020 - secondary to diverticulitis H/O inguinal hernia repair (~2004) left History of appendectomy (~1975) Family History Family History Father Hypertension Mother Diverticular disease Diabetes mellitus Grandparent Cancer Sibling Diabetes mellitus Heart disease Social History Social History Social History: Lamberto is . 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 Smoking status: Never smoker Second hand tobacco smoke exposure: No Alcohol intake: current Drinks per week: 15 Alcohol use details: 6 drinks/day Substance use: current Substance use type: marijuana Other substance usage details: 1 or 2 times a day. Do You Feel Safe in your Home?: Yes Lack of Transportation: No Lack of Food: Never True Current Housing: I Have Housing Concerned About Future Housing: No Difficulty Paying Gas/Electric Bills: No Difficulty Paying for Meds: No Currently Unemployed: No Education: High School Diploma/GED Difficulty w/ Childcare or Family Care: No Living arrangements: with family Occupation/Education: occupation Additional occupation/education comments: [employer] Gender identity (if verbalized by the patient): Male Sexual Orientation (if Verbalized by the Patient): Straight or Heterosexual Spiritual care concerns: No Meds Home Medications and Allergies Home Medications ?Medication ?Instructions ?Recorded ?Confirmed ?Type atorvastatin 40 mg tablet 40 mg PO QHS 07/17/24 12/05/24 History ibuprofen 200 mg tablet 200 mg PO Q6H PRN pain 09/13/24 12/05/24 History pantoprazole 20 mg tablet,delayed 20 mg PO QAM #90 tabs 09/13/24 12/05/24 Rx release cholecalciferol (vitamin D3) 25 1,000 unit PO DAILY 11/29/24 12/05/24 History mcg (1,000 unit) capsule (Vitamin D3) amlodipine 5 mg tablet 5 mg PO DAILY 12/05/24 12/05/24 History Allergies Allergy/AdvReac Type Severity Reaction Status Date / Time bee venom protein (honey bee) Allergy Intermediate Swelling Verified 12/05/24 10:26 mold Allergy Intermediate Sneezing Verified 12/05/24 10:26 cat dander Allergy Mild Sneezing Verified 12/05/24 10:26 propofol AdvReac Severe Hypertensio Verified 12/05/24 10:26 n Exam Narrative: 60-year-old male he is 5 ft 10 198 lb BMI is 28.4. He has elevation left shoulder 170 external rotation is 65 internal rotation is to T10. Does have pain at full elevation and internal rotation. AC joint is nontender. Speed's maneuver is negative. He has mild to moderate weakness in abduction associated with moderate pain. Normal external rotation strength. Belly press and subscap lift-off are intact. Normal sensation left upper extremity. 2+ radial pulse. Resp: Auscultation: clear to auscultation bilaterally Cardio: Rate: regular rate Rhythm: regular rhythm Assessment and Plan Assessment and plan (1) Tendinopathy of shoulder: Code(s): M67.919 - Unspecified disorder of synovium and tendon, unspecified shoulder Status: Acute Assessment and Plan: 59-year-old male who has significant tendinopathy and interstitial tearing of the rotator cuff tendon left shoulder. This was injured more than 2 years ago. He has gone through multiple nonsurgical treatment options but continues to have symptoms regularly. This point arthroscopy with mini open rotator cuff repair was offered to him. Patient feels this point he would like to proceed. Surgical procedures well as risks complications were discussed in detail all questions were answered and we will proceed. Patient will see his medical doctor for pre-surgical clearance. He will avoid any aspirin ibuprofen products 1 week prior to surgery. Patient's nasal swab was negative
[2024-12-10] VITALS (9 sets, daily range): BP systolic 156–169; BP diastolic 85–95; PULSE 62–81; RESP 16–24; TEMP 36.2–36.9; O2SAT 96–100
[2024-12-10] MEDS: VANCOMYCIN 1,250 MG/NS 250 ML BAG 166.67 MG IVPB (06:30)
[2024-12-10] MEDS: LACTATED RINGERS 1,000 ML 30 ML IV CONT ×2 (06:30→10:10)
[2024-12-10] MEDS: KETOROLAC 15 MG/ML VIAL (*BKC) IV PUSH (06:30)
[2024-12-10] MEDS: ACETAMINOPHEN 500 MG TABLET 1000 MG PO (06:30)
--- NOTE | 2024-12-10 07:05 | WPDANESEPPF ---
Anes - Initial Pre Proc Eval Procedure: Operation Date: 12/10/24 07:30 Proposed Procedures p Arthroscopic Evaluation Left Shoulder, Mini Open Rotator Cuff Repair, Possible Biceps Tenodesis, Proceed as Indicated - Marco Salazar MD Date/Time: 12/10/24 07:05 Surgeon: Marco Salazar MD Pre Op Diagnosis: left shoulder partial thickness rtc tear Patient Data Age: 59 Gender: M Height: 1.78 m Weight: 90.9 kg Allergies Allergy/AdvReac Type Severity Reaction Status Date / Time bee venom protein (honey bee) Allergy Intermediate Swelling Verified 12/05/24 10:26 mold Allergy Intermediate Sneezing Verified 12/05/24 10:26 cat dander Allergy Mild Sneezing Verified 12/05/24 10:26 propofol AdvReac Severe Hypertensio Verified 12/05/24 10:26 n Home Medications ?Medication ?Instructions ?Recorded ?Confirmed ?Type atorvastatin 40 mg tablet 40 mg PO QHS 07/17/24 12/05/24 History ibuprofen 200 mg tablet 200 mg PO Q6H PRN pain 09/13/24 12/05/24 History pantoprazole 20 mg tablet,delayed 20 mg PO QAM #90 tabs 09/13/24 12/05/24 Rx release cholecalciferol (vitamin D3) 25 1,000 unit PO DAILY 11/29/24 12/05/24 History mcg (1,000 unit) capsule (Vitamin D3) amlodipine 5 mg tablet 5 mg PO DAILY 12/05/24 12/05/24 History Patient hx anesthesia problems: none Family hx anesthesia problems: none Results Review: All pre-operative results and documents have been reviewed as part of the pre-operative evaluation. [facility] Past Medical History Medical History Essential (primary) hypertension Pain associated with defecation Abdominal pain Tear of left rotator cuff Arthritis of left acromioclavicular joint Allergies Left shoulder pain Skin lesion of chest wall Dyslipidemia History of tongue cancer Prediabetes Diverticulitis 07/2020 Surgical History Surgical History Cancer of anterior two-thirds of tongue, ventral surface 2017 - s/p Excision 2022? S/P laparoscopic-assisted sigmoidectomy (~07/09/20) 07/09/2020 - secondary to diverticulitis H/O inguinal hernia repair (~2004) left History of appendectomy (~1975) Family History Family History Father Hypertension Mother Diverticular disease Diabetes mellitus Grandparent Cancer Sibling Diabetes mellitus Heart disease Social History Social History Social History: Lamberto is . 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 Smoking status: Never smoker Second hand tobacco smoke exposure: No Alcohol intake: current Drinks per week: 15 Alcohol use details: 6 drinks/day Substance use: current Substance use type: marijuana Other substance usage details: 1 or 2 times a day. Do You Feel Safe in your Home?: Yes Lack of Transportation: No Lack of Food: Never True Current Housing: I Have Housing Concerned About Future Housing: No Difficulty Paying Gas/Electric Bills: No Difficulty Paying for Meds: No Currently Unemployed: No Education: High School Diploma/GED Difficulty w/ Childcare or Family Care: No Living arrangements: with family Occupation/Education: occupation Additional occupation/education comments: [email or web address] Gender identity (if verbalized by the patient): Male Sexual Orientation (if Verbalized by the Patient): Straight or Heterosexual Spiritual care concerns: No Anes - Eval Final PreProcedure Day of Procedure 12/10/24 07:05 Patient weight: overweight Heart: regular rate and rhythm Lungs: clear to auscultation Airway: Mallampati scale class II Neurological: alert and oriented Last oral intake: >/= 8 hours ASA classification: III Emergent: no Anesthetic plan: proceed Anesthesia type and monitoring: general ETT and standard monitoring Results Review: All pre-operative results and documents have been reviewed as part of the pre-operative evaluation. Informed Consent: The patient's anesthetic plan and its attendant risks and benefits were discussed with the patient/family/POA. Questions were solicited and answers provided to the satisfaction of the patient/family/POA.
--- NOTE | 2024-12-10 07:11 | WPDHPUPDATE1 ---
History and Physical Update Update Date/Time: 12/10/24 07:11 History and Physical has been reviewed, including an updated exam of the patient. There are NO changes in the patient's condition. Risks, benefits, and alternatives have been discussed and questions answered. Patient agrees to proceed with procedure.
[2024-12-10] MEDS: ceFAZolin 2 GM/D5W 50 ML 2 GM/50 ML BAG IVPB ×2 (07:15→10:46)
[2024-12-10] MEDS: ceFAZolin SODIUM 1 GM VIAL (08:17)
--- NOTE | 2024-12-10 09:04 | WPDANESPNB ---
Anes - Peripheral Nerve Block Date/Time: 12/10/24 09:04 I have discussed with the patient/family/POA the placement of a peripheral nerve block for post-operative pain management, including associated risks, benefits, complications, and side effects. Alternative methods of post-operative analgesia were detailed. Questions were solicited and answers provided to the satisfaction of the patient/family/POA. Time-Out: A pre-procedural Time-Out was completed immediately before starting the procedure and confirmed: Patient Identification, Site, Procedure, Patient Position and the Availability of Requisite Equipment. Clinical Indications: Acute post-operative pain management requested by the operative surgeon. Nerve Block Insertion Note Anes-nerve block: interscalene left Patient position: supine Skin prep: chlorhexidine Needle: 22 gauge, stimulating, insulated echogenic needle. Needle length: 50 mm Technique: ultrasound Injectate: bupivacaine 0.5% with epi 5 mcg/ml (20cc- no epi) Observations: tolerated well Complications: none Procedure start time:: 713 Procedure end time:: 716
--- NOTE | 2024-12-10 10:17 | PM.OP ---
Procedure Note - Brief Procedure Note - Brief Date of procedure: 12/10/24 left shoulder partial thickness rtc tear Procedure performed: Arthroscopy left shoulder mini open rotator cuff repair Surgeon: ROSARIO Barker Findings: 59-year-old male underwent arthroscopy of his left shoulder with mini open rotator cuff repair on 12/10. I was involved in the procedure including positioning the patient on the OR table in 1st assisting through the time surgery. Total time spent was 2 hours
--- NOTE | 2024-12-10 10:34 | W.PM.PROC2 ---
Procedure Note - Detailed Date of Procedure 12/10/24 Pre-op Diagnosis left shoulder partial thickness rtc tear Post-op Diagnosis Same (Mild surface maceration inferior portion of intra-articular portion of long head of biceps tendon and superior labral fraying. High-grade bursal sided partial-thickness tear posterior aspect of supraspinatus tendon) Procedure Performed Arthroscopic limited debridement of long head of biceps tendon and superior labrum, mini open rotator cuff repair left shoulder. Surgeon Marco Salazar MD Clinical Cytogenetics Director herminio Anesthesia General Description of Procedure Patient was brought to the operating room and general anesthesia was administered. He received 2 g Ancef weight based vancomycin preoperatively. He was carefully placed in beach chair position. Range of motion left shoulder under anesthesia was fine. The shoulder was prepped draped usual fashion. All of the shoulder was covered with IO band except the top portion. Standard posterior portal was placed. The intra-articular evaluation of the left glenohumeral joint demonstrated surface maceration of the inferior surface of the intra-articular portion of the long head of the biceps. I would estimate this involved less than 10% of the cross-sectional area of the biceps. The there is fraying and maceration of the inferior edge the superior labrum which was a little bit hypermobile but there was no detachment from the superior glenoid neck. The articular surfaces of the glenoid and the humeral head looked normal. No loose bodies in the inferior capsular recess. There was no tearing of the subscapularis tendon and the medial richardson of the bicipital groove was intact. There was some mild erythema of the portion of the biceps tendon in the bicipital groove when the tendon was retracted in the joint which is normal. The articular sided capsule of the supraspinatus and infraspinatus looked normal but the rotator cuff demonstrated diminished tension at the insertion as the under surface of the capsule was vertically oriented at its takeoff from the medial aspect the greater tuberosity and this was the case both the supraspinatus and infraspinatus tendons resulting in the tendon is being ballooned up the upward. The arthroscope was placed in the subacromial space. A bursectomy was performed. The outflow portal was placed in the anterior superior portal. Using the arthroscopic cautery device the CA ligament was ablated off the inferior aspect of the anterior acromion. I did not feel that he needed extensive bone removal and we used a Thomas rasp the mid lateral portal to gently smooth the anterior acromion. The arthroscope was placed in the mid lateral portal and the maceration partial-thickness bursal sided tearing was visualized which was a bit medial to the presumed location of the greater tuberosity footprint. The remaining skin was covered with IO band outer gloves were changed. A 4 cm longitudinal incision was made from the superior surface and her chromium and extending anterolaterally and the tendinous rafae of the deltoid between the anterior and middle heads of the deltoid was identified a few mm lateral to the incision and incised for a 3.5 cm split. We elevated the 5 mm of anterior deltoid from the acromion for improved exposure and a self-retaining retractor was placed. The bursal sided tear with the junction of supraspinatus and infraspinatus tendons was noted. This was high-grade in down to the capsule laterally. The lateral 8 mm of the tendon had intact bursal surface but the interstitial tear that we saw on the MRI scan extended to the greater tuberosity laterally under the intact bursal surface. A longitudinal is the occurred from the medial edge of the interstitial tear we saw on MRI scan. I elected to continue the split through the lateral 7 or 8 mm of rotator cuff attached to the lateral aspect of the greater tuberosity in line with the longitudinal split tear medially and this way we did not have to detach any of the 3 mm of bursal attachment to the lateral aspect of the greater tuberosity but we had ample mobility of the tendon to thoroughly prepare the medial 70% of the greater tuberosity and this was performed underneath the supraspinatus tendon as well. It did not undermine under the infraspinatus to any degree. A fresh 15 blade scalp was used to scrape all remaining soft tissue off the greater tuberosity. A 2 mm bur was used to make shallow 1 mm dimples and bur holes through the medial edge of the supraspinatus and superior aspect of infraspinatus footprint in the greater tuberosity adjacent to the articular surface for passage of sutures.. I then placed 4 interrupted inverted 2. Ethibond sutures to reapplied reapproximate the split most lateral suture about 6 mm from the lateral aspect greater tuberosity footprint. I identified relative to these sutures where the medial aspect of the tuberosity was located. The sutures were tied which nicely approximated the supraspinatus tendon to the infraspinatus tendon and then we placed in a horizontal mattress fashion a 2. Ethibond anterior and posterior to the longitudinal split just medial to the bur holes about 1 cm apart and these were placed in a crisscrossing fashion coming out the lateral metaphysis of the humerus and tied over a bone bridge and this snugged the supraspinatus and infraspinatus tendons down anatomic fashion onto the medial most aspect greater tuberosity footprint. On 0 Ethibond suture used to reapproximate the lateral 6 mm of incised portion of the longitudinal tear over the lateral aspect greater tuberosity for we then placed 2 additional crisscrossing sutures 1 in the infraspinatus and 1 in the supraspinatus to further compress the infraspinatus and supraspinatus tendons down to the more central aspects of the respective care tuberosity footprints. This gave a smooth spherical contour to the repair. Adequacy of the acromioplasty was confirmed and the shoulder taken through full range of motion. He had a scope was placed back in the shoulder. Long head of the biceps head was mobilized to confirm absence of entrapment by the sutures. The supraspinatus upper infraspinatus tendons were tightly approximated to the medial aspect of the greater tuberosity footprint. Wound was irrigated with antibiotic solution and single 2. Vicryl passed through the anterior acromion and additional suture placed through the proximal origin of the deltoid securing the origin of the deltoid split the split the deltoid closed with 0 Vicryl stitch. The. Skin close to his of his Vicryl and glue. He was placed in an UltraSling and transferred to postop recovery room stable condition. No known complications. [facility] Billing Surgery - Charge Forward: Surgery Billing (Limited arthroscopic debridement of superior labrum and intra-articular portion of long head of biceps tendon, knee open rotator cuff repair. Left shoulder)
== END 2024-12-10 11:59 | disposition home or self-care (01) ==
PROVIDERS: PCP Family Medicine; Visit Provider Orthopaedic Surgery
PROC: (CPT 29805; principal; 2024-12-10 07:30)
DX: M75.112 Incomplete rotator cuff tear or rupture of left shoulder, not specified as traumatic (principal); I10 Essential (primary) hypertension; M19.012 Primary osteoarthritis, left shoulder; G89.18 Other acute postprocedural pain; E78.5 Hyperlipidemia, unspecified; R73.03 Prediabetes; F12.90 Cannabis use, unspecified, uncomplicated; Z79.1 Long term (current) use of non-steroidal anti-inflammatories (NSAID); Z98.890 Other specified postprocedural states; Z90.49 Acquired absence of other specified parts of digestive tract; Z85.810 Personal history of malignant neoplasm of tongue; Z87.19 Personal history of other diseases of the digestive system; Z80.9 Family history of malignant neoplasm, unspecified; Z82.49 Family history of ischemic heart disease and other diseases of the circulatory system
CPT/HCPCS: 64415; 23412; 29828; A4565; A9270; J0690; J1100; J1885; J2250; J2405; J2704; J3010; J3370; J7120

== ENCOUNTER 2025-01-06 07:28 | Outpatient (CLI) | payer OTHER, SELFPAY ==
--- OUTSIDE RECORDS SUMMARY | 2025-01-06 07:32 | XMS_ITS | Clinical Summary ---
Author Organization [facility] [employer] Address [address] [place] [address] Care Team Providers Care Air Export Logistics Manager Name Role Phone Dipti Bauer MD Primary Care Provider Source Comments [facility] [employer],non-owned Affiliates and Associated Physician Practices is amultiple site organization consisting of ambulatory clinics and hospital sitesin [place], [place], [place] and [place]. This disclosure is being madepursuant to the Care Everywhere program and may not contain all information available regarding this patient. Last updated 18.[facility] [employer] Allergies No known active allergies Medications * [...] 36.6 C (97.9 F) 12/01/2022 3:41 PM AUTO MECHANIC APPRENTICE Respiratory Rate 11 12/01/2022 4:30 PM AUTO MECHANIC APPRENTICE Oxygen Saturation 95% 12/01/2022 4:30 PM AUTO MECHANIC APPRENTICE Inhaled Oxygen Concentration - - Weight 88.5 [...] complete this topic MENINGOCOCCAL (Group B) VACCINE SHARED DECISION-MAKING Aged Out No longer eligible based on patient's age to complete this topic MENINGOCOCCAL GROUPS A/C/Y/W VACCINE Aged Out No longer eligible b ased on patient's age to complete this topic Procedures Procedure Name Priority Date/Time Associated Diagnosis Comments BASIC METABOLIC PANEL (CALCIUM TOTAL) Routine 05/31/2018 1:27 PM CDT Tongue cancer from Last 3 Months or Most Recently Relevant to Health Maintenance Results * BASIC METABOLIC PANEL (CALCIUM TOTAL) (05/31/2018 1:27 PM CDT) BUN 9 7 - 26 mg/dL 05/31/2018 1:58 PM CDT [facility] Creatinine 0.8 0.6 - 1.2 mg/dL 05/31/2018 1:58 PM CDT [facility] Sodium 138 136 - 145 mmol/L 05/31/2018 1:58 PM CDT [facility] Potassium 4.0 3.5 - 4.5 mmol/L 05/31/2018 1:58 PM [facility] Chloride 101 98 - 107 mmol/L 05/31/2018 1:58 PM [facility] CO2 26 22 - 29 mmol/L 05/31/2018 1:58 PM [facility] Glucose 103 70 - 115 mg/dL 05/31/2018 1:58 PM [facility] Calcium 9.7 8.4 - 10.2 mg/dL 05/31/2018 1:58 PM [facility] Anion Gap 15 8 - 18 05/31/2018 1:58 PM [facility] BUN/Creatinine Ratio 11 7 - 05/31/2018 1:58 PM [facility] Osmolality Calculated 285 270 - 300 mOsm/kg 05/31/2018 1:58 PM [facility] eGFR >60 >60 mL/min/1.7 3 m2 05/31/2018 1:58 PM [facility] Blood BLOOD SPECIMEN / Unknown Venipuncture / Unknown 05/31/2018 1:27 PM CDT 05/31/2018 1:32 PM T Irwin Rodriguez MD LAB - CHEMISTRY RADHA BOYKIN [facility] Organization Address City/State/ZIP Co de Phone Number [facility] [address] [phone] from Last 3 Months or Most Recently Relevant to Health Maintenance Advance Directives * Full Code (Latest Code Status on File) Date Activated Date Inactivated Comments 05/31/2018 12:23 PM 05/31/2018 8:01 PM Care Teams Air Export Logistics Manager Relationship Specialty Start Date End Date Dipti Bauer MD [address] [place] [address] PCP - General 05/23/18
--- OUTSIDE RECORDS SUMMARY | 2025-01-06 07:32 | XMS_ITS ---
Author Organization [facility] Health Address [address] [place] [address] Care Team Providers Care National Recruiter Name Role Phone Dipti Bauer MD Primary Care Provider Active Problems Problem Noted Date Diagnosed Date Tongue cancer 05/23/2018 Current Oncology Plans No current plan information found. Past Plans No past plan information found. Radiation Treatments * No radiation treatments are documented for this patient in [facility]. Treatments may have been administered in another system. Treatment Summaries Tongue cancer (HCC)* Images from the original note were not included. 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 Martinez Valentine: Nurse: Katie Forbes: Nurse Practitioner: Tanisha Hurley: Radiation Oncologist N/A Medical Oncologist N/A Social Work Language And Literature Division Chair Dr. Susana Olson Dietitian Pastoral Care [facility] Hospital Scheduling Primary Care Provider Dipti Bauer MD [phone] Recommended cancer screenings Colonoscopy: every 10 years [...] walk a few extra steps. Important Resources [facility] Israeli Cancer Society cancer.org Israeli Head and Neck Society headandneckcancer.org Association of Cancer Online Resources acor.org Caring Bridge caringbridge.org International Association of Laryngectomees theQuantumSphere.com/ial The Oral Cancer Foundation oralcancerfoundation.org Support for People with Oral and Head and Neck Cancer spohnc.org Head and Neck Cancer [place] headandneck.org CancerCare cancercare.org LiveStrong Foundation livestrong.org National Cancer [place] cancer.gov Cancer Survivors Network csn.cancer.org National Coalition for Cancer Survivorship canceradvocacy.org Israeli Society of Clinical Oncologists cancer.net Cancer Support Community of [facility] www.cancersupportstl.org Radiation Therapy Questions/Answers www.rtanswers.org
--- OUTSIDE RECORDS SUMMARY | 2025-01-06 07:32 | XMS_ITS | Clinical Summary ---
Author Organization [facility] Address [address] [place] [address] Care Team Providers Care Vehicle Mechanic Name Role Phone Unavailable Primary Care Provider [...]
--- NOTE | 2025-01-06 07:43 | ECHO_ITS ---
Patient Info Name: Lamberto Wright Age: 59 years : 1965 Gender: Male Ht: 70 in Wt: 200 lbs BSA: 2.14 m2 HR: 65 bpm BP: 146 / 74 mmHg Technical Quality: Good Exam Date: 01/06/2025 8:06 AM Exam Location: Echo Lab Patient Status: Outpatient Admit Date: 01/06/2025 Staff Ordering Physician: Gustavo Bauer MD Profiling Machine Setup Operator: Tashia Cotton RDCS Attending Provider: Gusatvo Bauer MD Exam Type: CA echo doppler color flow Study Info Indications I10 - Essential (primary) hypertension Complete two-dimensional, color flow and Doppler transthoracic echocardiogram is performed. Summary 1. Complete two-dimensional, color flow and Doppler transthoracic echocardiogram is performed. 2. Left ventricular chamber dimension is normal. 3. Left ventricular systolic function is normal, estimated at 60-65%. 4. The left ventricular diastolic function is normal. 5. E/e' 8 is minimally elevated. 6. Left atrial chamber dimension is mildly enlarged. 7. There is mild tricuspid valve regurgitation. 8. No pulmonary hypertension, estimated pulmonary arterial systolic pressure is 32 mmHg. Left Ventricle E/e' 8 is minimally elevated. Left ventricular chamber dimension is normal. Left ventricular systolic function is normal, estimated at 60-65%. The left ventricular diastolic function is normal. Right Ventricle Right ventricular systolic function is normal and with normal TAPSE 2.3 cm. Right ventricular chamber dimension is normal. Left Atria Left atrial chamber dimension is mildly enlarged. Right Atria Right atrial chamber dimension is normal. Aortic Valve The aortic valve is trileaflet. There is no aortic valve stenosis. There is no aortic valve regurgitation. Pulmonic Valve There is no pulmonic regurgitation. Mitral Valve There is no mitral valve stenosis. There is no mitral valve regurgitation. Tricuspid Valve There is mild tricuspid valve regurgitation. No pulmonary hypertension, estimated pulmonary arterial systolic pressure is 32 mmHg. Pericardium/Pleural There is no pericardial effusion. Inferior Vena Cava Normal inferior vena cava with >50% collapse upon inspiration consistent with normal right atrial pressure, 5 mmHg. Aorta The aortic root size at the sinus of Valsalva is normal. Left Ventricular Outflow Tract Name Value Normal LVOT 2D LVOT Diameter 2.0 cm LVOT Doppler LVOT Peak Gradient 6 mmHg LVOT Mean Gradient 3 mmHg LVOT VTI 26 cm LVOT VTI/AV VTI Ratio 0.7 LVOT Stroke Volume 78 ml LVOT CO 14.4 l/min LVOT CI 6.8 l/min/m2 Pulmonic Valve Name Value Normal PV Doppler PV Peak Gradient 5 mmHg Mitral Valve Name Value Normal MV Doppler MV Decel [place] 400 cm/s2 MV PHT 61 ms MV Area (PHT) 3.6 cm2 4.0-5.0 MV Diastolic Function MV E Peak Velocity 84 cm/s MV A Peak Velocity 52 cm/s MV E/A 1.6 MV Decel Time 210 ms MV Annular TDI MV E/e' (Septal) 9.1 <=8.0 MV E/e' (Lateral) 7.5 <=8.0 MV E/e' (Average) 8.3 Tricuspid Valve Name Value Normal TV Regurgitation Doppler TR Peak Velocity 259 cm/s TR Peak Gradient 27 mmHg Estimated PAP/RSVP RA Pressure 5 mmHg <=5 PA Systolic Pressure 32 mmHg <36 RV Systolic Pressure 32 mmHg <36 Aorta Name Value Normal Ascending Aorta Ao Root Diameter (MM) 2.7 cm Ao Root Diam Index (MM) 1.3 cm/m2 Aortic Valve Name Value Normal AV Doppler AV Peak Velocity 152 cm/s AV Peak Gradient 9 mmHg AV Mean Gradient 6 mmHg AV VTI 36 cm AV Area (Cont Eq VTI) 2.2 cm2 >=3.0 AV Area (Cont Eq Andrew) 2.4 cm2 AV Regurgitation 2D LVOT Area 3.0 cm2 Ventricles Name Value Normal LV Dimensions 2D/MM IVS Diastolic Thickness (2D) 1.0 cm 0.6-1.0 LVID Diastole (2D) 4.7 cm 4.2-5.8 LVIW Diastolic Thickness (2D) 1.0 cm 0.6-1.0 LVID Systole (2D) 3.1 cm 2.5-4.0 LVOT Diameter 2.0 cm LV Mass (2D Cubed) 156.41 g 88.00-224.00 LV Mass Index (2D Cubed) 73 g/m2 49-115 Relative Wall Thickness (2D) 0.42 LV Fractional Shortening/Ejection Fraction 2D/MM LV Fractional Shortening (2D) 33 % 25-43 LV EF (2D Teicholz) 61 % 52-72 LV Diastolic Volume (4C MOD) 138 ml LV EF (4C MOD) 58 % LV Diastolic Volume (2C MOD) 113 ml LV EF (2C MOD) 66 % LV Diastolic Volume (BP MOD) 127 ml 62-150 LV Diastolic Volume Index (BP MOD) 60 ml/m2 34-74 LV Systolic Volume (BP MOD) 47 ml 21-61 LV Systolic Volume Index (BP MOD) 22 ml/m2 11-31 LV EF (BP MOD) 63 % 52-72 LV Diastolic Length (4C) 8.7 cm LV Systolic Length (4C) 6.4 cm LV Stroke Volume (4C MOD) 80 ml RV Dimensions 2D/MM RVID Diastole (2D) 4.8 cm 2.5-3.5 Atria Name Value Normal LA Dimensions LA Dimension (MM) 3.5 cm 3.0-4.1 LA Volume (4C A-L) 53 ml LA Volume (BP A-L) 51 ml RA Dimensions RA Area (4C) 17.3 cm2 <=18.0 Report Signatures
== END 2025-01-06 07:29 | disposition home or self-care (01) ==
LOC: ANHCARD 07:30
PROVIDERS: PCP Family Medicine; Visit Provider Family Medicine
DX: I10 Essential (primary) hypertension (principal); R01.1 Cardiac murmur, unspecified; I36.1 Nonrheumatic tricuspid (valve) insufficiency
CPT/HCPCS: 93306

== ENCOUNTER 2025-04-18 06:44 | Outpatient (CLI) | payer OTHER, SELFPAY ==
--- NOTE | ~2025-04-18 | MR_ITS ---
EXAMINATION: MR foot RT wo/w con DATE: 04/18/2025 07:39 INDICATION: Plantar fascial fibromatosis TECHNIQUE: Magnetic resonance imaging (MRI) of the right fore/mid foot was performed without intraven ous contrast. Sequences included axial, sagittal and coronal T1-weighted FSE, axial and coronal T2-we ighted FS FSE, sagittal fluid sensitive FSE STIR, axial T1-weighted FS FSE and post contrast axial, s agittal and coronal T1-weighted FS FSE. COMPARISON: None FINDINGS: Bone alignment is normal. No fracture. There is mild osteoarthritis at the articulation between the f irst metatarsal and the first metatarsal sesamoids more prominent at the tibial sesamoid where there is subarticular edema-like signal change at the plantar aspect of the head of the first metatarsal. T he Lisfranc ligament complex and the collateral ligament complex at the metatarsophalangeal and inter phalangeal joints are normal. No joint effusions. There is an approximately 1.8 x 1.2 x 0.5 cm region of increased T1 signal and intermediate T2 signal and minimal enhancement in the subcutaneous fat si tuated between the skin and the underlying flexor hallucis tendons at the level of the mid to distal aspect of the first proximal phalanx. This is distal to the insertion of the plantar aponeurosis. The re appears be a small region of to mild increased signal and minimal fusiform thickening of the centr al band of the plantar aponeurosis located in the midfoot plantar to the second tarsal metatarsal ramsey nt which could represent a very small plantar fibroma. No other abnormal masses or fluid collections identified. IMPRESSION: 1. Nonspecific 1.8 x 1.3 x 0.5 cm region of soft tissue replacing the normal subcutaneous fat in the superficial subcutaneous fat plantar to the distal aspect of the first proximal phalanx likely second chapo to callus formation. 2. Small region of minimal thickening of the central aspect of the plantar aponeurosis at the midfoot potentially a small plantar fibroma. Reviewed, dictated and finalized at location A. IMPRESSION: 1. Nonspecific 1.8 x 1.3 x 0.5 cm region of soft tissue replacing the normal lazo bcutaneous fat in the superficial subcutaneous fat plantar to the distal aspect of the first proximal phalanx likely secondary to callus formation. 2. Small region of minimal thickening of the central aspect of the plantar apon eurosis at the midfoot potentially a small plantar fibroma.
--- OUTSIDE RECORDS SUMMARY | 2025-04-18 06:48 | XMS_ITS | Clinical Summary ---
Author Organization [facility] [employer] Address [address] [place] [address] Care Team Providers Care Luster Repairer Name Role Phone Dipti Bauer MD Primary Care Provider Source Comments [facility] [employer],non-owned Affiliates and Associated Physician Practices is amultiple site organization consisting of ambulatory clinics and hospital sitesin [place], [place], [place] and [place]. This disclosure is being madepursuant to the Care Everywhere program and may not contain all information available regarding this patient. Last updated 18.[facility] [employer] Allergies No known active allergies Medications * Be aware that medications may not be up to date on this document. Alwaysverify current medications with the patient. atorvastatin (LIPITOR) 20 MG tablet Take 1 (one) tablet by mouth at bedtime 8 Active pantoprazole EC (PROTONIX) 40 MG tablet Take 20 mg by mouth once daily 8 Active acetaminophen (Tylenol) 325 MG tablet Take 2 (two) tablets by mouth every 6 hours as needed for Fever or Pain Maximum allowable Acetaminophen amount = 4 Grams (4000 mg) / 24 hours. 100 tablet 3 Active Additional Information Patient not taking.Reported on 12/16/2022 ibuprofen (Motrin) 200 MG tablet Take 1 (one) tablet to 2 (two) tablets by mouth every 6 hours as needed for Pain 100 tablet 3 Active oxyCODONE, immediate release, (Roxicodone) 5 MG tabletIndicati ons:Tongue cancer (HCC) Take 0.5 (one-half) tablet to 1 (one) tablet by mouth every 6 hours as needed for Pain 12 tablet 3 Active Additional Information Patient not taking.Reported on 12/16/2022 atorvastatin (Lipitor) 40 MG tablet Take 1 (one) tablet by mouth once daily 3 Active pantoprazole EC (Protonix) 20 MG tablet Take 1 (one) tablet by mouth as directed 3 Active Active Problems Problem Noted Date Diagnosed [...] at Not on file Legal Sex Male 5:59 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 Gender Identity Not on file Sexual Orientation Not on file Last Filed Vital Signs Vital Sign Reading Time Taken Comments Blood Pressure 181/106 03/22/2023 2:33 PM CDT Pulse 73 03/22/2023 2:33 PM CDT Temperature 36.6 C (97.9 F) 12/01/2022 3:41 PM CITY TAX AUDITOR Respiratory Rate 11 12/01/2022 4:30 PM CITY TAX AUDITOR Oxygen Saturation 95% 12/01/2022 4:30 PM CITY TAX AUDITOR Inhaled Oxygen Concentration - - Weight 88.5 kg (195 lb) 03/22/2023 2:33 PM CDT Height 177.8 cm (5' 10) 03/22/2023 2:33 PM CDT Body Mass Index 27.98 03/22/2023 2:33 PM CDT Plan of Treatment Health Maintenance Due Date Last Done Comments AMENA (AGES 45-75) - COL ON CA SCREENING [...] - 2023-2 5 season) 2024 02/08/2021, 01/18/2021 DEPRESSION SCREENING 10/09/2024 INFLUENZA VACCINE (#1) 2025 Respiratory Syncytial Virus (RSV) Vaccine Pt: or [...] - 26 mg/dL 05/31/2018 1:58 PM CDT [facility] Creatinine 0.8 0.6 - 1.2 mg/dL 05/31/2018 1:58 PM CDT [facility] Sodium 138 136 - 145 mmol/L 05/31/2018 1:58 PM [facility] Potassium 4.0 3.5 - 4.5 mmol/L 05/31/2018 1:58 PM [facility] Chloride 101 98 - 107 mmol/L 05/31/2018 1:58 PM [facility] CO2 26 22 - 29 mmol/L 05/31/2018 1:58 PM [facility] Glucose 103 70 - 115 mg/dL 05/31/2018 1:58 PM [facility] Calcium 9.7 8.4 - 10.2 mg/dL 05/31/2018 1:58 PM [facility] Anion Gap 15 8 - 18 05/31/2018 1:58 PM [facility] BUN/Creatinine Ratio 11 7 - 05/31/2018 1:58 PM [facility] Osmolality Calculated 285 270 - 300 mOsm/kg 05/31/2018 1:58 PM [facility] eGFR >60 >60 mL/min/1.7 3 m2 05/31/2018 1:58 PM [facility] Blood BLOOD SPECIMEN / Unknown Venipuncture / Unknown 05/31/2018 1:27 PM CDT 05/31/2018 1:32 PM CDT Irwin Rodriguez MD LAB - CHEMISTRY ORDERABLES nal Result [facility] [address] [place] [address] from Last 3 Months or Most Recently Relevant to Health Maintenance Insurance [place] [address] [facility] Advance Directives * Full Code (Latest Code Status on File) Date Activated Date Inactivated Comments 05/31/2018 12:23 PM 05/31/2018 8:01 PM Care Teams Luster Repairer Relationship Specialty Start Date End Date Dipti Bauer MD [address] [place] [address] PCP - General 05/23/18
--- OUTSIDE RECORDS SUMMARY | 2025-04-18 06:48 | XMS_ITS | Clinical Summary ---
Author Organization [facility] Address [address] [place] [address] Care Team Providers Care Edge Grinder Name Role Phone Unavailable Primary Care Provider [...] Td Vaccines ( 1 - Tdap) 1982 Pneumococcal Vaccine: 50+ Ye ars (1 of 1 - PCV) 2013 Zoster Vaccines (1 of 2) 2013 COVID-19 Vaccine ( - 2023-2 5 season) 2024 RSV Immunization or 60+ Years (1 [...]
--- OUTSIDE RECORDS SUMMARY | 2025-04-18 06:48 | XMS_ITS | Continuity of Care Document ---
Author Organization [facility] Address [address] [place] [address] Phone Care Team Providers Care Lna Name Role Phone Coco PT, DPT, Adria Unavailable Unavailable Procedures Procedure Date Therapeutic Activities Neuromuscular Re-Ed Therapeutic Exercise Therapeutic Activities Neuromuscular Re-Ed Therapeutic Exercise Therapeutic Activities Neuromuscular Re-Ed Therapeutic Exercise Therapeutic Activities Neuromuscular Re-Ed Therapeutic Exercise Therapeutic Activities Neuromuscular Re-Ed Therapeutic Exercise Therapeutic Activities Neuromuscular Re-Ed Therapeutic Exercise Therapeutic Activities Therapeutic Exercise Neuromuscular Re-Ed Neuromuscular Re-Ed Therapeutic Activities Therapeutic Exercise Manual Therapy Therapeutic Activities Manual Therapy Therapeutic Exercise Neuromuscular Re-Ed PT Evaluation Moderate Complexity Therapeutic Exercise Neuromuscular Re-Ed Therapeutic Activities Advance Directives Directive Yes / No Effective Date File Name No Information Encounters Encounter Description Practice Location Reason(s) For Visit Diagnoses Date Provider Providers Copied on Encounter [facility], [address], [place], [place], [id number], [place] tel:[phone] [place] No Information [address] [facility], [address], [place], [place], [id number], [place] tel:[phone] [place] No Information 2 Klahn Adria. . Referring Provider: Sapphire Moran4 [facility] [address], [place], [address]. tel:[phone] [facility] [address], [place], [place], [address], [place] tel:[phone] [place] No Information 2 Klahn Adria. . Referring Provider: Enedina Moran [facility] [address], [place], [address]. tel:[phone] [facility] [address], [place], [place], [address], [place] tel:[phone] [place] No Information 2 Klahn Adria. . Referring Provider: Enedina Moran [facility] [address], [place], [address]. tel:[phone] [facility] [address], [place], [place], [address], [place] tel:[phone] [place] No Information 2 Klahn Adria. . Referring Provider: Enedina Moran [facility] [address], [place], [address]. tel:[phone] [facility] [address], [place], [place], [address], [place] tel:[phone] [place] No Information 2 Klahn Adria. . Referring Provider: Enedina Moran [facility] [address], [place], [address]. tel:[phone] [facility], [address], [place], [place], [address], [place] tel:[phone] [place] No Information 8 2 Klahn Adria. . Referring Provider: Thiago Keating, Sapphire4 [facility] [address], [place], [address]. tel:[phone], [place], [place], [address], [place] tel:[phone] [place] No Information - 2 Klahn Adria. . Referring Provider: Enedina Moran [facility] [address], [place], [address]. tel:[phone] [facility], [address] [place], [place] [address], [place], [place], [address], [place] tel:[phone] [place] No Information 0 6 2 Klahn Adria. . Referring Provider: Enedina Moran [facility] [address], [place], [address]. tel:[phone] [address] [facility], [place], [place], [address], [place] tel:[phone] [place] No Information 0 4-202 2 Klahn Adria. . Referring Provider: Enedina Moran [address], [place], [address]. tel:[phone], [place], [place], [address], [place] tel:[phone] [place] No Information Jun-3 0-202 2 Klahn Adria. . Referring Provider: Enedina Moran [facility] [address], [place], [address]. tel:[phone] Family History Family Member Type Diagnosis Age At Onset No Information Payers Payer name Insurance type Covered democrat ID Erin vela(s) [facility] [id number] Social History Type Description Quantity Date Captured Comments Sex Male Smoking Status No Information Chief Complaint And Reason For Visit No Information Reason For Referral Reason For Referral No Information History Of Present Illness Encounter Date Complaint History Of Prese nt Illness No Information Functional Status Date Functional Assessmen t No Information Instructions Date Instruction Additional Infor kenya Giving encouragement to exercise Related to Overweight Giving encouragement to exercise Related to Overweight Assessments Type Assessment Date No Information Patient Care Teams Name Effective Dates (start - stop) Status Members No Information
--- OUTSIDE RECORDS SUMMARY | 2025-04-18 06:48 | XMS_ITS ---
Author Organization [facility] Address [address] [place] [address] Care Team Providers Care Pier Runner Name Role Phone Dipti Bauer MD Primary Care Provider Active Problems Problem Noted Date Diagnosed Date Tongue cancer 05/23/2018 Current Treatment and Therapy Plans No current plan information found. Past Treatment and Therapy Plans No past plan information found. Treatment Summaries Tongue cancer (HCC)* Images from the original note were not included. 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 Martinez Valentine: Nurse: Katie Forbes: Nurse Practitioner: Tanisha Hurley: Radiation Oncologist N/A Medical Oncologist N/A Social Work Master In [place] Dr. Susana Olson Dietitian Pastoral Care [facility] Hospital Scheduling Primary Care Provider Dipti Bauer MD [phone] Recommended cancer screenings Colonoscopy: every 10 years [...] walk a few extra steps. Important Resources [facility] Chile[place] Cancer Society cancer.org [place] Head and Neck Society headandneckcancer.org Association of Cancer Online Resources acor.org Caring Bridge caringbridge.org International Association of Laryngectomees theial.com/ial The Oral Cancer Foundation oralcancerfoundation.org Support for People with Oral and Head and Neck Cancer spohnc.org Head and Neck Cancer [place] headandneck.org CancerCare cancercare.org LiveStrong Foundation livestrong.org National Cancer [place] cancer.gov Cancer Survivors Network csn.cancer.org National Coalition for Cancer Survivorship canceradvocacy.org [place] Society of Clinical Oncologists cancer.net Cancer Support Community of [facility] www.cancersupportstl.org Radiation Therapy Questions/Answers www.rtanswers.org
--- OUTSIDE RECORDS SUMMARY | 2025-04-18 06:48 | XMS_ITS | Continuity of Care Document ---
Author Organization [facility] Address [address] [place] [address] [address] [place] [address] Phone Care Team Providers Care Head Field Hockey Coach Name Role Phone Francisco Sanchez Unavailable Unavailable Advance Directives Directive Yes / No Effective Date File Name No Information Encounters Encounter Description Practice Location Reason(s) For Visit Diagnoses Date Provider Providers Copied on Encounter [facility], [address] [place] [address] [address], [place], [place], [id number], [place] tel:[phone] [facility] No Information Dec- 7-200 6 Melisasy Edward. [address], [place], [address], [place]. tel:[phone] Family History Family Member Type Diagnosis Age At Onset No Information Payers Payer name Insurance type Covered libertarian ID Authoriza tijose(s) [employer] CI [id number] Social History Type Description Quantity Date Captured Comments Sex Male Smoking Status No Information Chief Complaint And Reason For Visit No Information Reason For Referral Reason For Referral No Information History Of Present Illness Encounter Date Complaint History Of Prese nt Illness No Information Functional Status Date Functional Assessmen t No Information Instructions Date Instruction Additional Infor mation No Information Assessments Type Assessment Date No Information Patient Care Teams Name Effective Dates (start - stop) Status Members No Information
== END 2025-04-18 06:45 | disposition home or self-care (01) ==
PROVIDERS: PCP Family Medicine; Visit Provider Podiatrist Foot & Ankle Surgery
DX: M72.2 Plantar fascial fibromatosis (principal)
CPT/HCPCS: 73720; A9577

== ENCOUNTER 2025-08-13 08:01 | Outpatient (CLI) | payer OTHER, SELFPAY ==
--- OUTSIDE RECORDS SUMMARY | 2025-08-13 08:06 | XMS_ITS | Clinical Summary ---
Author Organization [facility] Address [address] [place] [id number] Care Team Providers Care Rn Ortho Name Role Phone Unavailable Primary Care Provider [...] Vaccines (1 of 2) 2013 COVID-19 Vaccine (1 - 2024-2 6 season) 2025 Influenza Adult (#1) 2025 RSV Immunization or 60+ Years (1 - 1-dose 75+ series) 2038 Hepatitis A Vaccines Aged Out No long er eligible based on patient's age to complete this topic Meningococcal B Vaccine Aged Out No l onger eligible based on patient's age to complete this topic Meningococcal Vaccine Aged Out No cosme shadi eligible based on patient's age to complete this topic RSV Immunizations Under 20 Months Aged Out No longer eligible based on patient's age to complete this topic
--- OUTSIDE RECORDS SUMMARY | 2025-08-13 08:06 | XMS_ITS | Clinical Summary ---
Author Organization [facility] Address [address] [place] [address] Care Team Providers Care Cnc Technician Name Role Phone Dipti Bauer MD Primary Care Provider Source Comments [facility],non-owned Affiliates and Associated Physician Practices is amultiple site organization consisting of ambulatory clinics and hospital sitesin [place], [place], [place] and [place]. This disclosure is being madepursuant to the Care Everywhere program and may not contain all information available regarding this patient. 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 Gender Identity Not on file Sexual Orientation Not on file Last Filed Vital Signs Vital Sign Reading Time Taken Comments Blood Pressure 181/106 03/22/2023 2:33 PM CDT Pulse 73 03/22/2023 2:33 PM CDT Temperature 36.6 C (97.9 F) 12/01/2022 3:41 PM C S S REPRESENTATIVE Respiratory Rate 11 12/01/2022 4:30 PM C S S REPRESENTATIVE Oxygen Saturation 95% 12/01/2022 4:30 PM C S S REPRESENTATIVE Inhaled Oxygen Concentration - - Weight 88.5 [...] 2) 2013 SCREENING FOR DIABETES 05/31/2021 05/31/2018 DEPRESSION SCREENING 10/09/2024 COVID-19 VACCINE (3 - 2024-2 6 season) 2025 02/08/2021, 01/18/2021 INFLUENZA VACCINE (#1) 2025 Respiratory Syncytial Virus [...] - 26 mg/dL 05/31/2018 1:58 PM CDT [facility] Creatinine 0.8 0.6 - 1.2 mg/dL 05/31/2018 1:58 PM CDT [facility] Sodium 138 136 - 145 mmol/L [facility]2018 [facility] Potassium 4.0 3.5 - 4.5 mmol/L 05/31/2018 1:58 PM [facility] Chloride 101 98 - 107 mmol/L 05/31/2018 1:58 PM [facility] CO2 26 22 - 29 mmol/L 05/31/2018 1:58 PM [facility] Glucose 103 70 - 115 mg/dL 05/31/2018 1:58 PM [facility] Calcium 9.7 8.4 - 10.2 mg/dL 05/31/2018 1:58 PM [facility] Anion Gap 15 8 - 18 05/31/2018 1:58 PM [facility] BUN/Creatinine Ratio 11 7 - 05/31/2018 1:58 PM [facility] Osmolality Calculated 285 270 - 300 mOsm/kg 05/31/2018 1:58 PM [facility] eGFR >60 >60 mL/min/1.7 3 m2 05/31/2018 1:58 PM [facility] Blood BLOOD SPECIMEN / Unknown Venipuncture / Unknown 05/31/2018 1:27 PM CDT 05/31/2018 1:32 PM CDT Irwin Rodriguez MD LAB - CHEMISTRY ORDERABLES nal Result [facility] [address] [place] [address] from Last 3 Months or Most Recently Relevant to Health Maintenance Insurance [place] [address] [facility] Advance Directives * Full Code (Latest Code Status on File) Date Activated Date Inactivated Comments 05/31/2018 12:23 PM 05/31/2018 8:01 PM Care Teams Cnc Technician Relationship Specialty Start Date End Date Dipti Bauer MD [address] [place] [address] PCP - General 05/23/18
--- OUTSIDE RECORDS SUMMARY | 2025-08-13 08:06 | XMS_ITS ---
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 Martinez Valentine: Nurse: Katie Forbes: Nurse Practitioner: Tanisha Hurley: Radiation Oncologist N/A Medical Oncologist N/A Social Work School Photographer Dr. Susana Olson Dietitian Pastoral Care [facility] Hospital Scheduling Primary Care Provider Dipti Bauer MD [phone] Recommended cancer screenings Colonoscopy: every 10 years [...] a few extra steps. Important Resources [email or web address] [place] Cancer Society cancer.[email or web address] [place] Head and Neck Society [email or web address] Association of Cancer Online Resources acor.[email or web address] Caring Bridge [email or web address] International Association of Laryngectomees theial.com/ial The Oral Cancer Foundation [email or web address] Support for People with Oral and Head and Neck Cancer spohnc.org Head and Neck Cancer [place] headandneck.org CancerCare cancercare.[email or web address] LiveStrong Foundation livestrong.org National Cancer [place] cancer.gov Cancer Survivors Network csn.[email or web address] National Coalition for Cancer Survivorship canceradvocacy.org [place] Society of Clinical Oncologists cancer.net Cancer Support [facility] [email or web address].[email or web address] Radiation Therapy Questions/Answers www.[email or web address]
[2025-08-13 13:54] LABS: Alanine Aminotransferase 45 U/L (6-50); Albumin Level 4.8 g/dL (3.5-5.1); Alkaline Phosphatase 87 U/L (38-126); Anion Gap 11 mmol/L (4-12); Aspartate Amino Transferase 41 U/L (17-59); Bilirubin,Total 2.4 mg/dL (0.2-1.3); Blood Urea Nitrogen 15 mg/dL (9-20); Calcium 9.3 mg/dL (8.4-10.2); Carbon Dioxide 26 mmol/L (22-30); Chloride 99 mmol/L (98-107); Cholesterol 205 mg/dL (0-200); Estimated Glomerular Filt Rate > 60; Glucose 104 mg/dL (65-110); HDL Direct 53 mg/dL; Magnesium 2.1 mg/dL (1.6-2.3); Potassium 3.9 mmol/L (3.4-5.0); Sodium 136 mmol/L (137-145); Total Protein 7.7 g/dL (6.3-8.2); Triglycerides 100 mg/dL (<150)
[2025-08-13 14:00] LABS: Hematocrit 50.0 % (42.0-52.0); Hemoglobin 16.1 g/dL (14.0-18.0); Immature Granulocyte Percent A 0.3 % (0-0.5); Lymphocytes Absolute Auto 1.59 K/mm3 (0.9-3.2); Mean Corpuscular HGB Conc 32.2 g/dl (32-36); Mean Corpuscular Hemoglobin 30.8 pg (26-34); Mean Corpuscular Volume 95.6 fl (80-100); Nucleated Red Blood Cells Absolute Auto 0.000 K/mm3 (0.0-0.012); Nucleated Red Blood Cells Perc 0.0 % (0.0-0.2); Platelet Count Result 285 k/mm3 (150-375); Red Blood Count 5.23 M/mm3 (4.6-6.20); White Blood Count 6.8 K/mm3 (4.5-10.0)
[2025-08-13 14:26] LABS: Prostate Specific Antigen 1.9 ng/mL (< OR = 4.0)
[2025-08-13 14:37] LABS: Thyroid Stimulating Hormone Reflex 2.530 uIU/mL (0.465-4.68)
[2025-08-13 14:45] LABS: Vitamin B12 331.0 pg/mL (239-931)
[2025-08-13 18:15] LABS: Hemoglobin A1C 5.7 % (<5.7)
== END 2025-08-13 08:02 | disposition home or self-care (01) ==
LOC: ANHGOSHLAB 08:02
PROVIDERS: PCP Family Medicine; Visit Provider Nurse Practitioner Family
DX: E78.5 Hyperlipidemia, unspecified (principal); I10 Essential (primary) hypertension; E55.9 Vitamin D deficiency, unspecified; R73.03 Prediabetes; Z12.5 Encounter for screening for malignant neoplasm of prostate
CPT/HCPCS: 36415; 80053; 80061; 82306; 82607; 83036; 83735; 84153; 84443; 85025; G0103